=== PATIENT | female | born 1955 ===

== ENCOUNTER 2018-10-20 18:29 | Inpatient (IN) | payer OTHER ==
[2018-10-20 19:02] VITALS: BMI 27.3
--- NOTE | 2018-10-20 19:05 | ED PDOC ---
Arrival/HPI - General Historian: Spouse () - History of Present Illness Narrative History of Present Illness (Text): 10/20/18 18:56 63F with a 2year history of memory loss presents to the Emergency department today after sustaining a fall at 2pm today. she was recently given new prescriptions from her PMD yesterday but was unable to fill them. Denies head trauma. Pt cannot provide an accurate or precise history of the recent events, pt's at bedside giving history. Pt only responds intermittently. ROS: Pos+ fall, memory loss, altered mental status, Neg- chest pain, shortness of breat, fevers, chills, PMD: Dr Vora Home Rx: Metformin 500 qd Lipitor 20 QD Losartan 25 QD clorcon 20meq aricept 10mg BID tempazepam 15 HS Vit D3 22909 q wk Zoloft 50mg QD NIH stroke scale 14 <Ezra Grubbs - Last Filed: 10/20/18 19:14> - Critical Care Critical Care Minutes: 75 minutes - History of Present Illness Time/Duration: 4-6 hours Symptom Onset: Sudden Symptom Course: Worsening Activities at Onset: Rest Context: Home <Seth Fofana - Last Filed: 10/23/18 14:11> - General Chief Complaint: Trauma Time Seen by Provider: 10/20/18 18:44 Past Medical History - Provider Review Nursing Documentation Reviewed: Yes - Travel History Have you recently traveled outside [place] w/in the past 3 mons?: No <Seth Fofana - Last Filed: 10/23/18 14:11> Family/Social History - Physician Review Nursing Documentation Reviewed: Yes Family/Social History: Unknown Family HX <Seth Fofana - Last Filed: 10/23/18 14:11> Allergies/Home Meds <Ezra Grubbs - Last Filed: 10/20/18 19:14> <Seth Fofana - Last Filed: 10/23/18 14:11> Allergies/Adverse Reactions: Allergies No Known Allergies Allergy (Verified 10/20/18 18:58) Home Medications: Home Meds Medication Instructions Recorded Confirmed RX: No Known Home Med 10/20/18 10/20/18 Review of Systems - Review of Systems Systems not reviewed;Unavailable: Altered Mental Status <Seth Fofana Last Filed: 10/23/18 14:11> Physical Exam Vital Signs Reviewed: Yes Temperature: Afebrile Blood Pressure: Normal Pulse: Regular Respiratory Rate: Normal Appearance: Positive for: Non-Toxic Mental Status: Positive for: Confused - Systems Exam Head: Present: Atraumatic, Normocephalic Pupils: Present: PERRL Extroacular Muscles: Present: EOMI Conjunctiva: Present: Normal Mouth: Present: Moist Mucous Membranes Neck: Present: Normal Range of Motion Respiratory/Chest: Present: Clear to Auscultation, Good Air Exchange Cardiovascular: Present: Regular Rate and Rhythm, Normal S1, S2 Abdomen: Present: Normal Bowel Sounds Upper Extremity: Present: Capillary Refill < 2s Lower Extremity: Present: Capillary Refill < 2 s Neurological: Present: Other (No movement of LUE & LLE. Slight left sided facial droop noted. Incomprehensible sounds verbalized from patient) Skin: Present: Warm, Dry, Normal Color Psychiatric: Present: Alert <Seth Fofana - Last Filed: 10/23/18 14:11> Medical Decision Making ED Course and Treatment: 10/20/18 19:26 Impression 63y/o F w/ left sided weakness and slight speech impediment last found at baseline by her at 2PM today NIHSS: 14 Differential Diagnoses Includes But Is Not Limited To: --CVA/TIA --Hemorrhagic Stroke Plan --Labs --CTH --CT H/N angio --CXR --Neurology Consult --ICU Consult --EKG Progress Notes 10/20/18 19:18 CODE STROKE called. Patient noted to noted to be AOx 1. 10/20/18 19:34 CTH reviewed with large intraparenchymal bleeding noted within parietal lobe. Dr. Honeycutt(neurology) called. 10/20/18 19: Spoke to Dr. Honeycutt who states patient will need CTA/MRI. He states since patient is ineligible for tPA due to the intraparynchymal bleeding. He requests for head of bed to be elevated to 40 and blood pressure of 130-140s with Q1H neurology checks and Q15min pupil checks to account for any evidence of impending herniation. 10/20/18 19:48 Discussed case with radiologist who states patient has intraparynchmal parietal bleed, vasogenic edema and subrachnoid hemorrhage. He requests 3% hypertonic saline and will discuss case with the interventional radiologist. 10/20/18 19:57 After review of imaging, Dr. Honeycutt states patient does not need hypertonic saline at this time. He does not think the patient's symptoms are due to a ruptured jones aneurysm, but rather a mass. Since there is no midline shift noted on CT, he does not feel patient needs to have the hypertonic saline at this time. 10/20/18 20:[address] Bradshaw(biological chemist) who does not feel that patient needs to be preemptively intubated and accepts the patient onto the unit. He requests patient to be placed on 100% non-rebreather oxygen. Request for swallow screen relayed to nurse. Spoke to Dr. Pisano(neurosurgery) who states patient is not amenable to surgical intervention at this time. Call placed to Dr. Mccracken). 10/20/18 20:[address] Koehler who states patient is not familiar to him and desires to relegate care to the hospitalist. Dr. Bradshaw made aware. 10/23/18 14:11 - Lab Interpretations Lab Results: 10/20/18 19:18 Lab Results 10/20/18 19:18: Sodium 135, Potassium 3.4 L, Chloride 96 L, Carbon Dioxide 27, Anion Gap 14, BUN 10, Creatinine 0.7, Est GFR ( Amer) > 60, Est GFR (Non- Af Amer) > 60, Random Glucose 162 H, Calcium 9.2, Total Bilirubin 0.6, AST 45 H, ALT 38, Alkaline Phosphatase 111, Troponin I Pending, NT-Pro-B Natriuret Pep Pending, Total Protein 8.9 H, Albumin 4.7, Globulin 4.2, Albumin/Globulin Ratio 1.1 10/20/18 19:18: PT 11.3, INR 0.99, APTT 28.8 - RAD Interpretation Narrative RAD Interpretations (Text): 10/20/18 19:[address] reviewed by radiologist, shows: IMPRESSION: Large right parietal intraparenchymal hemorrhage. There is large surrounding area of vasogenic edema with local mass effect. Adjacent subarachnoid hemorrhage. Radiology Orders: 10/20/18 19:11 CHEST PORTABLE [RAD] Stat 10/20/18 19:15 HEAD W/O (CODE STROKE) [CT] Stat Galley Hand: Radiologist - EKG Interpretation EKG Interpretation (Text): 10/21/18 01:16 EKG: Ordered, reviewed, and independently interpreted the EKG. Rate : 62 BPM Rhythm : NSR Interpretation : No ST-segment elevations, no T-wave inversions. Interpreted by ED Physician: Yes Type: 12 lead EKG - Medication Orders Current Medication Orders: Sodium Chloride (Sodium Chloride 0.9%) 1,000 mls @ 999 mls/hr IV .Q1H1M STA Stop: 10/20/18 20:10 <Seth Fofana - Last Filed: 10/23/18 14:11> NIHSS Stroke Scale 3 - Date/Time Evaluation Performed Date Performed: 10/20/18 Time Performed: 19:18 When Was NIHSS Performed: Baseline - How Severe is the Stroke Level of Consciousness: 0=Alert LOC to Questions: 1=One correct LOC to commands: 2=Neither correct Best Gaze: 0=Normal Visual: 0=No visual loss Facial: 1=Minor asymmetry Motor Arm - Left: 4=No movement Motor Arm - Right: 0=No drift Motor Leg - Left: 4=No movement Motor Leg - Right: 0=No drift Limb Ataxia: 0=Absent Sensory: 0=Normal Best Language: 1=Mild to moderate aphasia Dysarthia: 1=Mild to moderate slurring Extinction & Inattention (Neglect): 0=Normal, no object Score: 14 <Seth Fofana - Last Filed: 10/23/18 14:11> rTPA Inclusion/Exclusion - Refusal of Treatment Patient Refused Treatment: No - Inclusion Criteria for Altepase Patient is 18 years or Older: Yes The Clinical Diagnosis of Ischemic Stroke That is Causing a Potentially Disabling Neurological Deficit: Yes Time of Onset is Well Established to be Less Than 270 Minute Before Treatment Would Begin: No Risk/Benefit Discussed With Patient/Family Member Present: Yes - Exclusion Criteria for Altepase Uncontrolled Hypertension at Time of Treatment (Systolic BP above 185 or Diastolic BP above 110 mmHg): No Active Internal Bleeding: No Known Bleeding Diathesis Including but Not Limited to: Platelets Below 100,000/mm,PTT Above 40 sec After Heparin Use, Current Use of Oral Anitcoagulant With INR Greater Than 1.7 or PT Greater Than 15 secs: No Evidence of an Intracranial Hemorrhage: Yes Suspicion of Subarachnoid Hemorrhage on Pretreatment Evaluation Even if CT Head Negative For Hemorrhage: Yes <Seth Fofana - Last Filed: 10/23/18 14:11> Disposition/Present on Arrival <Ezra Grubbs - Last Filed: 10/20/18 19:14> - Present on Arrival Any Indicators Present on Arrival: No History of DVT/PE: No History of Uncontrolled Diabetes: No Urinary Catheter: No History of Decub. Ulcer: No - Disposition Have Diagnosis and Disposition been Completed?: Yes Disposition Time: 20:36 Patient Plan: ICU <Seth Fofana - Last Filed: 10/23/18 14:11> - Disposition Diagnosis: Hemorrhagic stroke Disposition: HOSPITALIZED Patient Problems: Current Active Problems Problem Status Onset Hemorrhagic stroke Acute Condition: CRITICAL
[2018-10-20] MEDS ORDERED: Sodium Chloride 0.9% 1,000 ML IV STA (19:10)
[2018-10-20 19:36] LABS: ALB/GLOB RATIO 1.1 (1.1-1.8); ALBUMIN 4.7 g/dL (3.0-4.8); ALT/SGPT 38 U/L (7-56); AST/SGOT 45 U/L (14-36); BLOOD UREA NITROGEN 10 mg/dL (7-21); CALCIUM 9.2 mg/dL (8.4-10.5); GFR NON-AFRICAN AMERICAN > 60
[2018-10-20 19:49] LABS: INR 0.99; PARTIAL THROMBOPLASTIN TIME 28.8 Seconds (25.1-36.5); PROTHROMBIN TIME 11.3 SECONDS (9.4-12.5)
[2018-10-20] MEDS ORDERED: levETIRAcetam 1000mg/100ml NS 100 ML IV ONE (19:52)
[2018-10-20 19:53] LABS: BASO # 0.02 K/mm3 (0.0-2.0); BASO % 0.1 % (0.0-3.0); GRAN # 12.19 (1.4-6.5); GRAN % 85.6 % (50.0-68.0); HEMOGLOBIN 13.8 g/dL (12.0-16.0); LYMPH # 1.2 (1.2-3.4); LYMPH % 8.1 % (22.0-35.0); MEAN CELL VOLUME 86.2 fl (80.0-105.0); MEAN CORPUSCULAR HEMOGLOBIN 29.4 pg (25.0-35.0); MEAN CORPUSCULAR HGB CONC 34.1 g/dl (31.0-37.0); MEAN PLATELET VOLUME 9.1 fl (7.0-11.0); MONO # 0.9 (0.1-0.6); MONO % 6.2 % (1.0-6.0); RBC 4.7 10^6/uL (3.5-6.1); RED CELL DISTRIBUTION WIDTH 12.6 % (11.5-14.5); WHITE BLOOD COUNT 14.3 10^3/uL (4.5-11.0)
[2018-10-20 19:56] LABS: FREE T4 1.34 ng/dL (0.78-2.19)
[2018-10-20] MEDS ORDERED: Iohexol 350 MG/100 ML VIAL ONE (20:03)
[2018-10-20 20:16] LABS: B-TYPE NATRIURETIC PEPTIDE 151 pg/mL (0-450); TROPONIN I 0.21 ng/mL
[2018-10-20] MEDS ORDERED: Potassium Phosphate 15 MMOLE in Sodium Chloride 0.9% 250 ML IVPB ONE (20:24)
[2018-10-20] MEDS ORDERED: Sodium Chloride 0.9% 1,000 ML IV SCH (20:30)
--- NOTE | 2018-10-20 22:26 | CP.PCM.HP ---
<Chidi Cuellar - Last Filed: 10/21/18 05:28> History of Present Illness - History of Present Illness History of Present Illness: Chidi Cuellar DO PGY1. H&P Hospitalist Service, Dr Augustine Aly: left sided weakness s/p mechanical fall 63 y/o female with PMH of HTN, DM, HLD, memory loss presents to ED with left sided weakness and slight speech impairment s/p mechanical fall this afternoon. History is obtain by her at bedside as the patient is altered. Patient was last seen in am today by the before he went to work. She was in her normal state of health, ambulating and speaking in full sentences. received a call from relatives who founf the fell on the ground. He came home and found his unresponsive, no tongue biting or froth coming out of mouth. Patient called EMS. As per , patient is compliant with her he rmeds. Was seen by Dr Oconnell for the first time yesterday. He ordered imaging studies and prescribed meds that was not filled out yet. ROS is limited because of AMS PMH: HTN, DM, HLD, memory loss PSH: cataract surgery SH: dened alcohol, smoking, drugs All:NKDA Meds: Metformin, Lipitor, Losartan, clorcon, aricept, tempazepam, Vit D3, Zoloft PMD: Dr Oconnell Present on Admission - Present on Admission Any Indicators Present on Admission: No Past Patient History - Past Social History Smoking Status: Never Smoked - CARDIAC Hx Cardiac Disorders: No - PULMONARY Hx Respiratory Disorders: No - NEUROLOGICAL Hx Dementia: Yes - HEENT Hx HEENT Problems: No - RENAL Hx Chronic Kidney Disease: No - ENDOCRINE/METABOLIC Hx Diabetes Mellitus Type 2: No - HEMATOLOGICAL/ONCOLOGICAL Hx Blood Disorders: No - INTEGUMENTARY Hx Dermatological Problems: No - MUSCULOSKELETAL/RHEUMATOLOGICAL Hx Musculoskeletal Disorders: No - GASTROINTESTINAL Hx Gastrointestinal Disorders: No - GENITOURINARY/GYNECOLOGICAL Hx Genitourinary Disorders: No - PSYCHIATRIC Hx Psychophysiologic Disorder: No Hx Substance Use: No - SURGICAL HISTORY Hx Surgeries: No Meds Allergies/Adverse Reactions: Allergies Allergy/AdvReac Type Severity Reaction Status Date / Time No Known Allergies Allergy Verified 10/20/18 18:58 Physical Exam - Constitutional Appears: Non-toxic, In Acute Distress, Confused Additional comments: altered, lethargic - Head Exam Head Exam: ATRAUMATIC, NORMAL INSPECTION, NORMOCEPHALIC - Eye Exam Eye Exam: EOMI, Normal appearance, PERRL Pupil Exam: NORMAL ACCOMODATION, PERRL - ENT Exam ENT Exam: Mucous Membranes Dry - Neck Exam Neck exam: Positive for: Normal Inspection - Respiratory Exam Respiratory Exam: Clear to Auscultation Bilateral, NORMAL BREATHING PATTERN - Cardiovascular Exam Cardiovascular Exam: REGULAR RHYTHM, +S1, +S2. absent: Gallop, RRR - GI/Abdominal Exam GI & Abdominal Exam: Normal Bowel Sounds, Soft. absent: Tenderness - Extremities Exam Extremities exam: Positive for: normal capillary refill, pedal pulses present. Negative for: calf tenderness - Back Exam Back exam: NORMAL INSPECTION - Expanded Neurological Exam Expanded Patient oriented to: person Speech: Garbled Speech Cranial nerves: EOM's Intact: Normal, Facial Palsey w/o Forehead Movement: Normal, Facial Sensation: Normal Upper motor neuron: Babinski Sign: Normal, Sensory Extinction: Abnormal Left Sensory exam: Lower Extremity Light Touch: Abnormal Left, Upper Extremity Light Touch: Abnormal Left Neuro motor strength exam: Left Upper Extremity: 2/1, Right Upper Extremity: 4, Left Lower Extremity: 2/1 (flexed elbow, wrist), Right Lower Extremity: 4 Coma Scale Eye Opening: SPONTANEOUS Coma Scale Motor Response: OBEYS COMMANDS, Abnormal Flexion Coma Scale Verbal: Confused Coma Scale Total: 17 - Psychiatric Exam Psychiatric exam: Flat Affect - Skin Skin Exam: Dry, Intact Results - Vital Signs Recent Vital Signs: Last Vital Signs Temp 97.4 F L 10/20/18 18:59 Pulse 54 L 10/20/18 20:50 Resp 14 10/20/18 20:50 BP 136/79 10/20/18 20:50 Pulse Ox 98 10/20/18 20:50 - Labs Result Diagrams: 10/20/18 19:18 10/20/18 19:18 Labs: Laboratory Results - last 24 hr 10/20/18 10/20/18 10/20/18 19:18 19:18 19:18 WBC 14.3 H RBC 4.70 Hgb 13.8 Hct 40.5 MCV 86.2 MCH 29.4 MCHC 34.1 RDW 12.6 Plt Count 320 MPV 9.1 Gran % 85.6 H Lymph % (Auto) 8.1 L Whitman % (Auto) 6.2 H Eos % (Auto) 0.0 L Baso % (Auto) 0.1 Gran # 12.19 H Lymph # (Auto) 1.2 Whitman # (Auto) 0.9 H Eos # (Auto) 0.0 Baso # (Auto) 0.02 ESR 88 H PT 11.3 INR 0.99 APTT 28.8 Sodium 135 Potassium 3.4 L Chloride 96 L Carbon Dioxide 27 Anion Gap 14 BUN 10 Creatinine 0.7 Est GFR ( Amer) > 60 Est GFR (Non-Af Amer) > 60 Random Glucose 162 H Calcium 9.2 Total Bilirubin 0.6 AST 45 H ALT 38 Alkaline Phosphatase 111 Troponin I 0.21 H* NT-Pro-B Natriuret Pep 151 Total Protein 8.9 H Albumin 4.7 Globulin 4.2 Albumin/Globulin Ratio 1.1 Free T4 TSH 3rd Generation Blood Type Blood Type Confirm Antibody Screen BBK History Checked 10/20/18 10/20/18 10/20/18 19:18 20:00 20:45 WBC RBC Hgb Hct MCV MCH MCHC RDW Plt Count MPV Gran % Lymph % (Auto) Whitman % (Auto) Eos % (Auto) Baso % (Auto) Gran # Lymph # (Auto) Whitman # (Auto) Eos # (Auto) Baso # (Auto) ESR PT INR APTT Sodium Potassium Chloride Carbon Dioxide Anion Gap BUN Creatinine Est GFR ( Amer) Est GFR (Non-Af Amer) Random Glucose Calcium Total Bilirubin AST ALT Alkaline Phosphatase Troponin I NT-Pro-B Natriuret Pep Total Protein Albumin Globulin Albumin/Globulin Ratio Free T4 1.34 TSH 3rd Generation 0.78 Blood Type A POSITIVE Blood Type Confirm A POSITIVE Antibody Screen Negative BBK History Checked No verified bt Assessment & Plan - Assessment and Plan (Free Text) Assessment: 63 y/o female with PMH of HTN, DM, HLD, memory loss presents to ED with left sided weakness and slight speech impairment s/p mechanical fall. CT head shows right intraparynchmal parietal bleed, vasogenic edema and subrachnoid hemorrhage. Patient is admitted to ICU for hemorrhagic stroke Plan: Acute hemorrhagic stroke: -AAOx 1, in NAD, suppoting airway, occasionally responds to verbal stimuli -CT head: right intraparynchmal parietal bleed, vasogenic edema and subrachnoid hemorrhage -CTA ordered -MRI ordered -NIH stroke scale 14 -swallow screen failed -fall, seizure, aspiration precaution -head of bed to be elevated to 40 -BP control SBP 130-140s -continue Nicardipine drip -replete lytes. -hypokalemia, continue potassium phosphate -continue IVF NS @100cc/hr -Q1H neurology checks and Q15min pupil checks -PT/OT -neurology consulted Dr. Honeycutt is following -As per neurosurgery : not amenable to surgical intervention at this time -100% non-rebreather oxygen -maintain normothermia, euglycemia, O2 sat >90% HTN: -hold home anti HTN meds -BP contrl SBP 130-140s DM: -accucheck -ISS low -HGB A1C -euglycemic control Prophylaxis: -GI ppx: protonix -DVT ppx: SCD Case reviewed and paln discussed with Dr Augustine Cuellar, DO PGY1 <Larry Bradshaw - Last Filed: 10/22/18 03:14> Results - Vital Signs Recent Vital Signs: Last Vital Signs Temp 98.5 F 10/21/18 20:00 Pulse 49 L 10/21/18 22:30 Resp 18 10/21/18 22:30 BP 135/68 10/21/18 22:00 Pulse Ox 100 10/21/18 22:30 - Labs Result Diagrams: 10/21/18 06:00 10/21/18 06:00 Labs: Laboratory Results - last 24 hr 10/21/18 10/21/18 10/21/18 01:20 06:00 06:00 WBC 9.2 D RBC 4.67 Hgb 13.4 Hct 40.1 MCV 85.9 MCH 28.7 MCHC 33.4 RDW 13.1 Plt Count 303 MPV 8.9 Gran % 76.3 H Lymph % (Auto) 17.9 L Whitman % (Auto) 5.4 Eos % (Auto) 0.2 L Baso % (Auto) 0.2 Gran # 7.05 H Lymph # (Auto) 1.7 Whitman # (Auto) 0.5 Eos # (Auto) 0.0 Baso # (Auto) 0.02 Sodium 139 Potassium 3.5 L Chloride 101 Carbon Dioxide 28 Anion Gap 13 BUN 7 Creatinine 0.7 Est GFR ( Amer) > 60 Est GFR (Non-Af Amer) > 60 POC Glucose (mg/dL) Random Glucose 129 H Calcium 9.0 Phosphorus 4.6 H Magnesium 2.4 H Total Bilirubin 0.7 AST 52 H ALT 37 Alkaline Phosphatase 98 Troponin I 0.16 H* D 0.14 H* Total Protein 8.1 Albumin 4.1 Globulin 3.9 Albumin/Globulin Ratio 1.1 Triglycerides 115 Cholesterol 233 H LDL Cholesterol Direct 145 H HDL Cholesterol 62 H 10/21/18 10/22/18 18:52 00:14 WBC RBC Hgb Hct MCV MCH MCHC RDW Plt Count MPV Gran % Lymph % (Auto) Whitman % (Auto) Eos % (Auto) Baso % (Auto) Gran # Lymph # (Auto) Whitman # (Auto) Eos # (Auto) Baso # (Auto) Sodium Potassium Chloride Carbon Dioxide Anion Gap BUN Creatinine Est GFR ( Amer) Est GFR (Non-Af Amer) POC Glucose (mg/dL) 100 94 Random Glucose Calcium Phosphorus Magnesium Total Bilirubin AST ALT Alkaline Phosphatase Troponin I Total Protein Albumin Globulin Albumin/Globulin Ratio Triglycerides Cholesterol LDL Cholesterol Direct HDL Cholesterol Attending/Attestation - Attestation I have personally seen and examined this patient.: Yes I have fully participated in the care of the patient.: Yes I have reviewed all pertinent clinical information: Yes Notes (Text): 10/22/18 03:10 Agree with resident physician's note. 63 year old woman with PMH of DM ,HTN,HLD,Dementia comes in after fall. Has Speech imapariment. Memory loss x 2 months. AMS. Left Upper extremity weakness. She was talking to , following commands, speech was inditinct. Leukocytosis-14.3 Granulocytosis-85.6% Hypokalemia-3.4 Hyperglycemia-162 mg %. AST-45. CXR-Neg. CT Head-Right parietal hemorrage. NIHSS-14. CCT time spent :30 minutes. Plan:See orders.
[2018-10-21] MEDS: Nicardipine 20 MG/200 ML 20 MG/200 ML BAG IV PRN (00:42)
--- NOTE | 2018-10-21 05:57 | CT ---
Date of service: 10/20/2018 PROCEDURE: CT HEAD WITHOUT CONTRAST. HISTORY: Code Stroke COMPARISON: None available. TECHNIQUE: Axial computed tomography images were obtained through the head/brain without intravenous contrast. Radiation dose: Total exam DLP = 1003.11 mGy-cm. This CT exam was performed using one or more of the following dose reduction techniques: Automated exposure control, adjustment of the mA and/or kV according to patient size, and/or use of iterative reconstruction technique. FINDINGS: HEMORRHAGE: There is right frontal parietal parenchymal hematoma measures 4.5 centimeter in the largest AP diameter and 3.4 centimeter in the transverse diameter surrounding with vasogenic edema. There is also trace amount of subarachnoid hemorrhage and possible trace subdural hemorrhage along the right adjacent interhemispheric falx. BRAIN: There is mild mass effect on the midline without evidence of significant midline shift at the level of the lateral ventricles. Mild atrophy noted. VENTRICLES: Unremarkable. No hydrocephalus. CALVARIUM: Unremarkable. PARANASAL SINUSES: Unremarkable as visualized. No significant inflammatory changes. MASTOID AIR CELLS: Unremarkable as visualized. No inflammatory changes. OTHER FINDINGS: None. IMPRESSION: Acute parenchymal hemorrhage at right frontal parietal lobe. Adjacent trace subarachnoid and subdural hemorrhage. Mild surrounding vasogenic edema. Preliminary report was submitted by [facility] Radiology contains concordant findings.
[2018-10-21 07:08] LABS: BASO # 0.02 K/mm3 (0.0-2.0); BASO % 0.2 % (0.0-3.0); EOS % 0.2 % (1.5-5.0); GRAN # 7.05 (1.4-6.5); GRAN % 76.3 % (50.0-68.0); HEMOGLOBIN 13.4 g/dL (12.0-16.0); LYMPH # 1.7 (1.2-3.4); LYMPH % 17.9 % (22.0-35.0); MEAN CELL VOLUME 85.9 fl (80.0-105.0); MEAN CORPUSCULAR HEMOGLOBIN 28.7 pg (25.0-35.0); MEAN CORPUSCULAR HGB CONC 33.4 g/dl (31.0-37.0); MEAN PLATELET VOLUME 8.9 fl (7.0-11.0); MONO # 0.5 (0.1-0.6); MONO % 5.4 % (1.0-6.0); RBC 4.67 10^6/uL (3.5-6.1); RED CELL DISTRIBUTION WIDTH 13.1 % (11.5-14.5); WHITE BLOOD COUNT 9.2 10^3/uL (4.5-11.0)
[2018-10-21 07:31] LABS: ALB/GLOB RATIO 1.1 (1.1-1.8); ALBUMIN 4.1 g/dL (3.0-4.8); ALT/SGPT 37 U/L (7-56); AST/SGOT 52 U/L (14-36); BLOOD UREA NITROGEN 7 mg/dL (7-21); GFR NON-AFRICAN AMERICAN > 60; HDL CHOLESTEROL 62 mg/dL (29-60)
[2018-10-21 07:37] LABS: LDL CHOLESTEROL 145 mg/dL (0-129)
[2018-10-21 07:44] LABS: TROPONIN I 0.14 ng/mL
--- NOTE | 2018-10-21 08:17 | CP.PCM.PN ---
Subjective - Date & Time of Evaluation Date of Evaluation: 10/21/18 Time of Evaluation: 08:14 - Subjective Subjective: called by ER last night reviewed history and CT Small frontal lobe intraparenchamal hemorrhage consistent with hemorrhagic infarct very close to motor strip no significant mass effect. there is no indication at this time to consider surgical intervention. Suggest f/u ct and neurology management reconsult if any changes occur Objective - Vital Signs/Intake and Output Vital Signs (last 24 hours): Temp Pulse Resp BP Pulse Ox 98.0 F 48 L 14 129/73 100 10/21/18 04:00 10/21/18 07:04 10/21/18 07:04 10/21/18 07:04 10/21/18 07:04 Intake and Output: 10/21/18 10/21/18 06:59 18:59 Intake Total 1510 Output Total 450 Balance 1060 - Medications Medications: Current Medications Nicardipine HCl (Cardene Iv Premix) 20 mg in 200 mls @ 50 mls/hr IV .Q4H PRN; Protocol PRN Reason: TITRATE PER MD ORDER Last Titration: 10/21/18 02:00 Dose: 0 mg/hr, 0 mls/hr Sodium Chloride (Sodium Chloride 0.9%) 1,000 mls @ 100 mls/hr IV .Q10H LUNA Last Admin: 10/20/18 22:30 Dose: 100 mls/hr Pantoprazole Sodium (Protonix Inj) 40 mg IVP DAILY LUNA Last Admin: 10/20/18 23:59 Dose: 40 mg - Labs Labs: 10/21/18 06:00 10/21/18 06:00 PT 11.3 SECONDS (9.4-12.5) 10/20/18 19:18 INR 0.99 10/20/18 19:18 APTT 28.8 Seconds (25.1-36.5) 10/20/18:18
--- NOTE | 2018-10-21 09:06 | RAD ---
Date of service: 10/20/2018 HISTORY: sob COMPARISON: No prior. FINDINGS: LUNGS: No active pulmonary disease. PLEURA: No significant pleural effusion identified, no pneumothorax apparent. CARDIOVASCULAR: No aortic atherosclerotic calcification present. Normal cardiac size. No pulmonary vascular congestion. OSSEOUS STRUCTURES: No significant abnormalities. VISUALIZED UPPER ABDOMEN: Normal. OTHER FINDINGS: None. IMPRESSION: No active disease.
--- NOTE | 2018-10-21 09:08 | CP.CCUPN ---
<JohnRodney - Last Filed: 10/21/18 12:00> CCU Subjective - Physician Review Subjective (Free Text): Rodney Lopez Internal Medicine Resident- Progress Note on Behalf of Critical Care Team Subjective: Patient seen and examined at bedside. No acute overnight events. Patient offers no new complaints at this time. Denies fever, chills, chest pain, SOB, palpitations, abdominal pain, nausea, vomiting, diarrhea, constipation, and urinary symptoms. 12 point ROS negative except as indicated in HPI Physical Examination: - Constitutional Appears: No acute distress - Head Exam Head Exam: ATRAUMATIC, NORMAL INSPECTION, NORMOCEPHALIC - Eye Exam Eye Exam: EOMI, Normal appearance, PERRL - ENT Exam ENT Exam: Mucous Membranes Moist - Neck Exam Neck exam: Positive for: Normal Inspection - Respiratory Exam Respiratory Exam: Clear to Auscultation Bilateral, NORMAL BREATHING PATTERN - Cardiovascular Exam Cardiovascular Exam: REGULAR RHYTHM, +S1, +S2. absent: Gallop, RRR - GI/Abdominal Exam GI & Abdominal Exam: Normal Bowel Sounds, Soft. absent: Tenderness - Extremities Exam Extremities exam: Positive for: normal capillary refill, pedal pulses present. Negative for: calf tenderness - Back Exam Back exam: NORMAL INSPECTION - Neurological Exam Neurological exam: AAO x 2, CN II- VII intact bilaterally, muscle strength 5/5 right upper and right lower extremities, 1/5 muscle strength left upper and left lower extremities, sensation intact to touch throughout, NIHSS 11 - Psychiatric Exam Psychiatric exam: Flat Affect - Skin Skin Exam: Dry, Intact Assessment and Plan: Patient is a 63 year old female with a PMHx of HTN, DM, HLD, memory loss who was admitted for evaluation and treatment of left sided weakness and slight speech impairment s/p mechanical fall. CT head without contrast revealed a right sided intraparynchmal parietal bleed, vasogenic edema and subrachnoid hemor rhage. Patient as admitted under ICU care for management of aformentioned imaging findings. Neuro: Acute hemorrhagic stroke - AAOx 2, in NAD - GCS 15 [id number] - NIHSS 11 - 10/20/2018 CT head without contrast: right intraparynchmal parietal bleed, vasogenic edema and subrachnoid hemorrhage - 10/20/2018 CTA head and neck ordered and pending - 10/21/2018 CT head without contrast ordered and pending for monitoring of ICH - fall, seizure, aspiration precaution - head of bed to be elevated to 40 - continue Nicardipine drip for tight BP control, goal SBP 130-140s - Stopped 3% NS @ 30cc/hr as per neuro team, goal sodium 140 mmol/L, continue IVF NS @100cc/hr - started on keppra 750mg IV q12 - PT/OT consulted- appreciate recommendations - speech/swallow evaluation - neurology consulted Dr. Honeycutt- appreciate recommendations - neurosurgery consulted Dr. Pisano appreciate recommendations- no indication at this time to consider surgical intervention Cardiovascular Hx of HTN: - hold home anti HTN meds - BP control SBP 130-140mmHgs Elevated Troponins - neurogenic troponin spill- downtrending- no AC - cardiology consulted- appreciate recommendations - 10/21/18 Echocardiogram ordered and pending Endocrinology DM: - accucheck - ISS low - HGB A1C - maintain euglycemia 140-180mmol/L GI Dysphagia - swallow screen failed - keep patient NPO - continue IV NS @100cc/hr - goal sodium 140mmeq/l GI ppx: - protonix 40mg IV daily Renal Hypokalemia - repleted with KCl 10 mEq/L x 2 - monitor closely, replete as needed Hypermagnesemia - no acute intervention at this time - repeat mag level tomorrow AM Heme DVT ppx - SCD Patient case discussed with and plan approved by attending physician, Dr. Pierre. CCU Objective - Vital Signs / Intake & Output Vital Signs (Last 4 hours): Vital Signs Pulse Resp BP Pulse Ox 10/21/18 08:40 53 L 12 100 10/21/18 08:30 49 L 15 100 10/21/18 08:20 48 L 16 100 10/21/18 08:10 49 L 21 100 10/21/18 08:00 49 L 15 131/60 100 10/21/18 07:50 51 L 21 100 10/21/18 07:40 54 L 25 H 100 10/21/18 07:30 58 L 16 100 10/21/18 07:20 57 L 13 100 10/21/18 07:15 48 L 30 H 137/67 100 10/21/18 07:10 48 L 16 100 10/21/18 07:04 48 L 14 129/73 100 10/21/18 07:00 48 L 14 129/73 100 10/21/18 06:50 50 L 100 10/21/18 06:45 49 L 17 131/77 100 10/21/18 06:40 50 L 17 100 10/21/18 06:30 55 L 14 132/78 100 10/21/18 06:20 47 L 12 100 10/21/18 06:15 48 L 13 137/72 100 10/21/18 06:10 49 L 100 10/21/18 06:00 48 L 14 125/71 100 10/21/18 05:55 52 L 10/21/18 05:50 48 L 15 100 10/21/18 05:45 49 L 15 127/66 100 10/21/18 05:40 49 L 21 100 10/21/18 05:30 54 L 26 H 127/78 100 10/21/18 05:20 48 L 15 100 10/21/18 05:15 48 L 14 126/72 100 10/21/18 05:10 48 L 18 100 10/21/18 05:00 61 19 133/83 100 Intake and Output (Last 8hrs): Intake & Output 10/20/18 10/21/18 10/21/18 22:59 06:59 14:59 Intake Total 1510 Output Total 450 Balance 1060 Weight 140 lb 121 lb 11.2 oz Intake: IV 1510 Right Antecubital 1510 Oral 0 Output: Urine 450 Urine, Voided 450 Stool 0 Emesis 0 - Medications Active Medications: Active Medications Generic Name Dose Route Start Last Admin Trade Name Freq PRN Reason Stop Dose Admin Nicardipine HCl 20 mg in 200 mls @ 50 mls/hr 10/20/18 20:03 10/21/18 02:00 Cardene Iv Premix IV 0 mg/hr .Q4H PRN 0 mls/hr TITRATE PER MD ORDER Titration Protocol 5 MG/HR Sodium Chloride 1,000 mls @ 100 mls/hr 10/20/18 20:30 10/20/18 22:30 Sodium Chloride 0.9% IV 100 mls/hr .Q10H LUNA Administration Pantoprazole Sodium 40 mg 10/20/18 23:45 10/20/18 23:59 Protonix Inj IVP 40 mg DAILY LUNA Administration - Patient Studies Lab Studies: Lab Studies 10/21/18 10/21/18 10/21/18 Range/Units 06:00 06:00 01:20 WBC 9.2 D (4.5-11.0) 10^3/uL RBC 4.67 (3.5-6.1) 10^6/uL Hgb 13.4 (12.0-16.0) g/dL Hct 40.1 (36.0-48.0) % MCV 85.9 (80.0-105.0) fl MCH 28.7 (25.0-35.0) pg MCHC 33.4 (31.0-37.0) g/dl RDW 13.1 (11.5-14.5) % Plt Count 303 (120.0-450.0) 10^3/uL MPV 8.9 (7.0-11.0) fl Gran % 76.3 H (50.0-68.0) % Lymph % (Auto) 17.9 L (22.0-35.0) % [place] % (Auto) 5.4 (1.0-6.0) % Eos % (Auto) 0.2 L (1.5-5.0) % Baso % (Auto) 0.2 (0.0-3.0) % Gran # 7.05 H (1.4-6.5) Lymph # (Auto) 1.7 (1.2-3.4) [place] # (Auto) 0.5 (0.1-0.6) Eos # (Auto) 0.0 (0.0-0.7) Baso # (Auto) 0.02 (0.0-2.0) K/mm3 ESR (0.0-20.0) mm/hr PT (9.4-12.5) SECONDS INR APTT (25.1-36.5) Seconds Sodium 139 (132-148) mmol/L Potassium 3.5 L (3.6-5.0) mmol/L Chloride 101 (98-107) mmol/L Carbon Dioxide 28 (21-33) mmol/L Anion Gap 13 (10-20) BUN 7 (7-21) mg/dL Creatinine 0.7 (0.7-1.2) mg/dl Est GFR ( Amer) > 60 Est GFR (Non-Af Amer) > 60 Random Glucose 129 H (70-110) mg/dL Calcium 9.0 (8.4-10.5) mg/dL Phosphorus 4.6 H (2.5-4.5) mg/dL Magnesium 2.4 H (1.7-2.2) mg/dL Total Bilirubin 0.7 (0.2-1.3) mg/dL AST 52 H (14-36) U/L ALT 37 (7-56) U/L Alkaline Phosphatase 98 (38-126) U/L Troponin I 0.14 H* 0.16 H* D ng/mL NT-Pro-B Natriuret Pep (0-450) pg/mL Total Protein 8.1 (5.8-8.3) g/dL Albumin 4.1 (3.0-4.8) g/dL Globulin 3.9 gm/dL Albumin/Globulin Ratio 1.1 (1.1-1.8) Triglycerides 115 (35-160) mg/dL Cholesterol 233 H (130-200) mg/dL LDL Cholesterol Direct 145 H (0-129) mg/dL HDL Cholesterol 62 H (29-60) mg/dL Free T4 (0.78-2.19) ng/dL TSH 3rd Generation (0.46-4.68) mIU/mL Blood Type Blood Type Confirm Antibody Screen BBK History Checked 10/20/18 10/20/18 10/20/18 Range/Units 20:45 20:00 19:18 WBC (4.5-11.0) 10^3/uL RBC (3.5-6.1) 10^6/uL Hgb (12.0-16.0) g/dL Hct (36.0-48.0) % MCV (80.0-105.0) fl MCH (25.0-35.0) pg MCHC (31.0-37.0) g/dl RDW (11.5-14.5) % Plt Count (120.0-450.0) 10^3/uL MPV (7.0-11.0) fl Gran % (50.0-68.0) % Lymph % (Auto) (22.0-35.0) % [place] % (Auto) (1.0-6.0) % Eos % (Auto) (1.5-5.0) % Baso % (Auto) (0.0-3.0) % Gran # (1.4-6.5) Lymph # (Auto) (1.2-3.4) [place] # (Auto) (0.1-0.6) Eos # (Auto) (0.0-0.7) Baso # (Auto) (0.0-2.0) K/mm3 ESR (0.0-20.0) mm/hr PT (9.4-12.5) SECONDS INR APTT (25.1-36.5) Seconds Sodium (132-148) mmol/L Potassium (3.6-5.0) mmol/L Chloride (98-107) mmol/L Carbon Dioxide (21-33) mmol/L Anion Gap (10-20) BUN (7-21) mg/dL Creatinine (0.7-1.2) mg/dl Est GFR ( Amer) Est GFR (Non-Af Amer) Random Glucose (70-110) mg/dL Calcium (8.4-10.5) mg/dL Phosphorus (2.5-4.5) mg/dL Magnesium (1.7-2.2) mg/dL Total Bilirubin (0.2-1.3) mg/dL AST (14-36) U/L ALT (7-56) U/L Alkaline Phosphatase (38-126) U/L Troponin I ng/mL NT-Pro-B Natriuret Pep (0-450) pg/mL Total Protein (5.8-8.3) g/dL Albumin (3.0-4.8) g/dL Globulin gm/dL Albumin/Globulin Ratio (1.1-1.8) Triglycerides (35-160) mg/dL Cholesterol (130-200) mg/dL LDL Cholesterol Direct (0-129) mg/dL HDL Cholesterol (29-60) mg/dL Free T4 1.34 (0.78-2.19) ng/dL TSH 3rd Generation 0.78 (0.46-4.68) mIU/mL Blood Type A POSITIVE Blood Type Confirm A POSITIVE Antibody Screen Negative BBK History Checked No verified bt 10/20/18 10/20/18 10/20/18 Range/Units 19:18 19:18 19:18 WBC 14.3 H (4.5-11.0) 10^3/uL RBC 4.70 (3.5-6.1) 10^6/uL Hgb 13.8 (12.0-16.0) g/dL Hct 40.5 (36.0-48.0) % MCV 86.2 (80.0-105.0) fl MCH 29.4 (25.0-35.0) pg MCHC 34.1 (31.0-37.0) g/dl RDW 12.6 (11.5-14.5) % Plt Count 320 (120.0-450.0) 10^3/uL MPV 9.1 (7.0-11.0) fl Gran % 85.6 H (50.0-68.0) % Lymph % (Auto) 8.1 L (22.0-35.0) % [place] % (Auto) 6.2 H (1.0-6.0) % Eos % (Auto) 0.0 L (1.5-5.0) % Baso % (Auto) 0.1 (0.0-3.0) % Gran # 12.19 H (1.4-6.5) Lymph # (Auto) 1.2 (1.2-3.4) [place] # (Auto) 0.9 H (0.1-0.6) Eos # (Auto) 0.0 (0.0-0.7) Baso # (Auto) 0.02 (0.0-2.0) K/mm3 ESR 88 H (0.0-20.0) mm/hr PT 11.3 (9.4-12.5) SECONDS INR 0.99 APTT 28.8 (25.1-36.5) Seconds Sodium 135 (132-148) mmol/L Potassium 3.4 L (3.6-5.0) mmol/L Chloride 96 L (98-107) mmol/L Carbon Dioxide 27 (21-33) mmol/L Anion Gap 14 (10-20) BUN 10 (7-21) mg/dL Creatinine 0.7 (0.7-1.2) mg/dl Est GFR ( Amer) > 60 Est GFR (Non-Af Amer) > 60 Random Glucose 162 H (70-110) mg/dL Calcium 9.2 (8.4-10.5) mg/dL Phosphorus (2.5-4.5) mg/dL Magnesium (1.7-2.2) mg/dL Total Bilirubin 0.6 (0.2-1.3) mg/dL AST 45 H (14-36) U/L ALT 38 (7-56) U/L Alkaline Phosphatase 111 (38-126) U/L Troponin I 0.21 H* ng/mL NT-Pro-B Natriuret Pep 151 (0-450) pg/mL Total Protein 8.9 H (5.8-8.3) g/dL Albumin 4.7 (3.0-4.8) g/dL Globulin 4.2 gm/dL Albumin/Globulin Ratio 1.1 (1.1-1.8) Triglycerides (35-160) mg/dL Cholesterol (130-200) mg/dL LDL Cholesterol Direct (0-129) mg/dL HDL Cholesterol (29-60) mg/dL Free T4 (0.78-2.19) ng/dL TSH 3rd Generation (0.46-4.68) mIU/mL Blood Type Blood Type Confirm Antibody Screen BBK History Checked Laboratory Results - last 24 hr 10/20/18 10/20/18 10/20/18 19:18 19:18 19:18 WBC 14.3 H RBC 4.70 Hgb 13.8 Hct 40.5 MCV 86.2 MCH 29.4 MCHC 34.1 RDW 12.6 Plt Count 320 MPV 9.1 Gran % 85.6 H Lymph % (Auto) 8.1 L [place] % (Auto) 6.2 H Eos % (Auto) 0.0 L Baso % (Auto) 0.1 Gran # 12.19 H Lymph # (Auto) 1.2 [place] # (Auto) 0.9 H Eos # (Auto) 0.0 Baso # (Auto) 0.02 ESR 88 H PT 11.3 INR 0.99 APTT 28.8 Sodium 135 Potassium 3.4 L Chloride 96 L Carbon Dioxide 27 Anion Gap 14 BUN 10 Creatinine 0.7 Est GFR ( Amer) > 60 Est GFR (Non-Af Amer) > 60 Random Glucose 162 H Calcium 9.2 Phosphorus Magnesium Total Bilirubin 0.6 AST 45 H ALT 38 Alkaline Phosphatase 111 Troponin I 0.21 H* NT-Pro-B Natriuret Pep 151 Total Protein 8.9 H Albumin 4.7 Globulin 4.2 Albumin/Globulin Ratio 1.1 Triglycerides Cholesterol LDL Cholesterol Direct HDL Cholesterol Free T4 TSH 3rd Generation Blood Type Blood Type Confirm Antibody Screen BBK History Checked 10/20/18 10/20/18 10/20/18 19:18 20:00 20:45 WBC RBC Hgb Hct MCV MCH MCHC RDW Plt Count MPV Gran % Lymph % (Auto) [place] % (Auto) Eos % (Auto) Baso % (Auto) Gran # Lymph # (Auto) [place] # (Auto) Eos # (Auto) Baso # (Auto) ESR PT INR APTT Sodium Potassium Chloride Carbon Dioxide Anion Gap BUN Creatinine Est GFR ( Amer) Est GFR (Non-Af Amer) Random Glucose Calcium Phosphorus Magnesium Total Bilirubin AST ALT Alkaline Phosphatase Troponin I NT-Pro-B Natriuret Pep Total Protein Albumin Globulin Albumin/Globulin Ratio Triglycerides Cholesterol LDL Cholesterol Direct HDL Cholesterol Free T4 1.34 TSH 3rd Generation 0.78 Blood Type A POSITIVE Blood Type Confirm A POSITIVE Antibody Screen Negative BBK History Checked No verified bt 10/21/18 10/21/18 10/21/18 01:20 06:00 06:00 WBC 9.2 D RBC 4.67 Hgb 13.4 Hct 40.1 MCV 85.9 MCH 28.7 MCHC 33.4 RDW 13.1 Plt Count 303 MPV 8.9 Gran % 76.3 H Lymph % (Auto) 17.9 L [place] % (Auto) 5.4 Eos % (Auto) 0.2 L Baso % (Auto) 0.2 Gran # 7.05 H Lymph # (Auto) 1.7 [place] # (Auto) 0.5 Eos # (Auto) 0.0 Baso # (Auto) 0.02 ESR PT INR APTT Sodium 139 Potassium 3.5 L Chloride 101 Carbon Dioxide 28 Anion Gap 13 BUN 7 Creatinine 0.7 Est GFR ( Amer) > 60 Est GFR (Non-Af Amer) > 60 Random Glucose 129 H Calcium 9.0 Phosphorus 4.6 H Magnesium 2.4 H Total Bilirubin 0.7 AST 52 H ALT 37 Alkaline Phosphatase 98 Troponin I 0.16 H* D 0.14 H* NT-Pro-B Natriuret Pep Total Protein 8.1 Albumin 4.1 Globulin 3.9 Albumin/Globulin Ratio 1.1 Triglycerides 115 Cholesterol 233 H LDL Cholesterol Direct 145 H HDL Cholesterol 62 H Free T4 TSH 3rd Generation Blood Type Blood Type Confirm Antibody Screen BBK History Checked Radiology Impressions: Radiology Impressions Head CT 10/20/18 19:15 IMPRESSION: Acute parenchymal hemorrhage at right frontal parietal lobe. Adjacent trace subarachnoid and subdural hemorrhage. Mild surrounding vasogenic edema. Preliminary report was submitted by [facility] Radiology contains concordant findings. EKG/Cardiology Studies: Cardiology / EKG Studies 10/21/18 05:00 EKG [ELECTROCARDIOGRAM] Routine Comment: Reason For Exam: elevated trop Fingerstick Blood Sugar Results: 129 Critical Care Progress Note - Nutrition Nutrition: Nutrition Category Date Time Status NPO Diet [DIET] Diets 10/20/18 Breakfast Ordered <Reg Pierre - Last Filed: 10/21/18 14:20> CCU Objective - Vital Signs / Intake & Output Vital Signs (Last 4 hours): Vital Signs Pulse Resp BP Pulse Ox 10/21/18 11:00 48 L 32 H 166/87 H 100 10/21/18 10:50 50 L 41 H 100 10/21/18 10:40 51 L 15 100 10/21/18 10:30 46 L 28 H 100 10/21/18 10:20 48 L 5 L 100 Intake and Output (Last 8hrs): Intake & Output 10/20/18 10/21/18 10/21/18 22:59 06:59 14:59 Intake Total 1510 100 Output Total 450 Balance 1060 100 Weight 140 lb 121 lb 11.2 oz Intake: IV 1510 100 Right Antecubital 1510 Oral 0 Output: Urine 450 Urine, Voided 450 Stool 0 Emesis 0 - Medications Active Medications: Active Medications Generic Name Dose Route Start Last Admin Trade Name Freq PRN Reason Stop Dose Admin Nicardipine HCl 20 mg in 200 mls @ 50 mls/hr 10/20/18 20:03 10/21/18 13:30 Cardene Iv Premix IV 5 mg/hr .Q4H PRN 50 mls/hr TITRATE PER MD ORDER Titration Protocol 5 MG/HR Levetiracetam 500 mg in 100 mls @ 400 mls/hr 10/21/18 10:00 10/21/18 10:04 Keppra 500mg Ivpb IVPB 400 mls/hr Q12 LUNA Administration Pantoprazole Sodium 40 mg 10/20/18 23:45 12/21/18 10:19 Protonix Inj IVP 40 mg DAILY LUNA Administration - Patient Studies Lab Studies: Lab Studies 10/21/18 10/21/18 10/21/18 Range/Units 06:00 06:00 01:20 WBC 9.2 D (4.5-11.0) 10^3/uL RBC 4.67 (3.5-6.1) 10^6/uL Hgb 13.4 (12.0-16.0) g/dL Hct 40.1 (36.0-48.0) % MCV 85.9 (80.0-105.0) fl MCH 28.7 (25.0-35.0) pg MCHC 33.4 (31.0-37.0) g/dl RDW 13.1 (11.5-14.5) % Plt Count 303 (120.0-450.0) 10^3/uL MPV 8.9 (7.0-11.0) fl Gran % 76.3 H (50.0-68.0) % Lymph % (Auto) 17.9 L (22.0-35.0) % [place] % (Auto) 5.4 (1.0-6.0) % Eos % (Auto) 0.2 L (1.5-5.0) % Baso % (Auto) 0.2 (0.0-3.0) % Gran # 7.05 H (1.4-6.5) Lymph # (Auto) 1.7 (1.2-3.4) [place] # (Auto) 0.5 (0.1-0.6) Eos # (Auto) 0.0 (0.0-0.7) Baso # (Auto) 0.02 (0.0-2.0) K/mm3 ESR (0.0-20.0) mm/hr PT (9.4-12.5) SECONDS INR APTT (25.1-36.5) Seconds Sodium 139 (132-148) mmol/L Potassium 3.5 L (3.6-5.0) mmol/L Chloride 101 (98-107) mmol/L Carbon Dioxide 28 (21-33) mmol/L Anion Gap 13 (10-20) BUN 7 (7-21) mg/dL Creatinine 0.7 (0.7-1.2) mg/dl Est GFR ( Amer) > 60 Est GFR (Non-Af Amer) > 60 Random Glucose 129 H (70-110) mg/dL Calcium 9.0 (8.4-10.5) mg/dL Phosphorus 4.6 H (2.5-4.5) mg/dL Magnesium 2.4 H (1.7-2.2) mg/dL Total Bilirubin 0.7 (0.2-1.3) mg/dL AST 52 H (14-36) U/L ALT 37 (7-56) U/L Alkaline Phosphatase 98 (38-126) U/L Troponin I 0.14 H* 0.16 H* D ng/mL NT-Pro-B Natriuret Pep (0-450) pg/mL Total Protein 8.1 (5.8-8.3) g/dL Albumin 4.1 (3.0-4.8) g/dL Globulin 3.9 gm/dL Albumin/Globulin Ratio 1.1 (1.1-1.8) Triglycerides 115 (35-160) mg/dL Cholesterol 233 H (130-200) mg/dL LDL Cholesterol Direct 145 H (0-129) mg/dL HDL Cholesterol 62 H (29-60) mg/dL Free T4 (0.78-2.19) ng/dL TSH 3rd Generation (0.46-4.68) mIU/mL Blood Type Blood Type Confirm Antibody Screen BBK History Checked 10/20/18 10/20/18 10/20/18 Range/Units 20:45 20:00 19:18 WBC (4.5-11.0) 10^3/uL RBC (3.5-6.1) 10^6/uL Hgb (12.0-16.0) g/dL Hct (36.0-48.0) % MCV (80.0-105.0) fl MCH (25.0-35.0) pg MCHC (31.0-37.0) g/dl RDW (11.5-14.5) % Plt Count (120.0-450.0) 10^3/uL MPV (7.0-11.0) fl Gran % (50.0-68.0) % Lymph % (Auto) (22.0-35.0) % [place] % (Auto) (1.0-6.0) % Eos % (Auto) (1.5-5.0) % Baso % (Auto) (0.0-3.0) % Gran # (1.4-6.5) Lymph # (Auto) (1.2-3.4) [place] # (Auto) (0.1-0.6) Eos # (Auto) (0.0-0.7) Baso # (Auto) (0.0-2.0) K/mm3 ESR (0.0-20.0) mm/hr PT (9.4-12.5) SECONDS INR APTT (25.1-36.5) Seconds Sodium (132-148) mmol/L Potassium (3.6-5.0) mmol/L Chloride (98-107) mmol/L Carbon Dioxide (21-33) mmol/L Anion Gap (10-20) BUN (7-21) mg/dL Creatinine (0.7-1.2) mg/dl Est GFR ( Amer) Est GFR (Non-Af Amer) Random Glucose (70-110) mg/dL Calcium (8.4-10.5) mg/dL Phosphorus (2.5-4.5) mg/dL Magnesium (1.7-2.2) mg/dL Total Bilirubin (0.2-1.3) mg/dL AST (14-36) U/L ALT (7-56) U/L Alkaline Phosphatase (38-126) U/L Troponin I ng/mL NT-Pro-B Natriuret Pep (0-450) pg/mL Total Protein (5.8-8.3) g/dL Albumin (3.0-4.8) g/dL Globulin gm/dL Albumin/Globulin Ratio (1.1-1.8) Triglycerides (35-160) mg/dL Cholesterol (130-200) mg/dL LDL Cholesterol Direct (0-129) mg/dL HDL Cholesterol (29-60) mg/dL Free T4 1.34 (0.78-2.19) ng/dL TSH 3rd Generation 0.78 (0.46-4.68) mIU/mL Blood Type A POSITIVE Blood Type Confirm A POSITIVE Antibody Screen Negative BBK History Checked No verified bt 12/20/18 12/20/18 12/20/18 Range/Units 19:18 19:18 19:18 WBC 14.3 H (4.5-11.0) 10^3/uL RBC 4.70 (3.5-6.1) 10^6/uL Hgb 13.8 (12.0-16.0) g/dL Hct 40.5 (36.0-48.0) % MCV 86.2 (80.0-105.0) fl MCH 29.4 (25.0-35.0) pg MCHC 34.1 (31.0-37.0) g/dl RDW 12.6 (11.5-14.5) % Plt Count 320 (120.0-450.0) 10^3/uL MPV 9.1 (7.0-11.0) fl Gran % 85.6 H (50.0-68.0) % Lymph % (Auto) 8.1 L (22.0-35.0) % [place] % (Auto) 6.2 H (1.0-6.0) % Eos % (Auto) 0.0 L (1.5-5.0) % Baso % (Auto) 0.1 (0.0-3.0) % Gran # 12.19 H (1.4-6.5) Lymph # (Auto) 1.2 (1.2-3.4) [place] # (Auto) 0.9 H (0.1-0.6) Eos # (Auto) 0.0 (0.0-0.7) Baso # (Auto) 0.02 (0.0-2.0) K/mm3 ESR 88 H (0.0-20.0) mm/hr PT 11.3 (9.4-12.5) SECONDS INR 0.99 APTT 28.8 (25.1-36.5) Seconds Sodium 135 (132-148) mmol/L Potassium 3.4 L (3.6-5.0) mmol/L Chloride 96 L (98-107) mmol/L Carbon Dioxide 27 (21-33) mmol/L Anion Gap 14 (10-20) BUN 10 (7-21) mg/dL Creatinine 0.7 (0.7-1.2) mg/dl Est GFR ( Amer) > 60 Est GFR (Non-Af Amer) > 60 Random Glucose 162 H (70-110) mg/dL Calcium 9.2 (8.4-10.5) mg/dL Phosphorus (2.5-4.5) mg/dL Magnesium (1.7-2.2) mg/dL Total Bilirubin 0.6 (0.2-1.3) mg/dL AST 45 H (14-36) U/L ALT 38 (7-56) U/L Alkaline Phosphatase 111 (38-126) U/L Troponin I 0.21 H* ng/mL NT-Pro-B Natriuret Pep 151 (0-450) pg/mL Total Protein 8.9 H (5.8-8.3) g/dL Albumin 4.7 (3.0-4.8) g/dL Globulin 4.2 gm/dL Albumin/Globulin Ratio 1.1 (1.1-1.8) Triglycerides (35-160) mg/dL Cholesterol (130-200) mg/dL LDL Cholesterol Direct (0-129) mg/dL HDL Cholesterol (29-60) mg/dL Free T4 (0.78-2.19) ng/dL TSH 3rd Generation (0.46-4.68) mIU/mL Blood Type Blood Type Confirm Antibody Screen BBK History Checked Laboratory Results - last 24 hr 10/20/18 10/20/18 10/20/18 19:18 19:18 19:18 WBC 14.3 H RBC 4.70 Hgb 13.8 Hct 40.5 MCV 86.2 MCH 29.4 MCHC 34.1 RDW 12.6 Plt Count 320 MPV 9.1 Gran % 85.6 H Lymph % (Auto) 8.1 L [place] % (Auto) 6.2 H Eos % (Auto) 0.0 L Baso % (Auto) 0.1 Gran # 12.19 H Lymph # (Auto) 1.2 [place] # (Auto) 0.9 H Eos # (Auto) 0.0 Baso # (Auto) 0.02 ESR 88 H PT 11.3 INR 0.99 APTT 28.8 Sodium 135 Potassium 3.4 L Chloride 96 L Carbon Dioxide 27 Anion Gap 14 BUN 10 Creatinine 0.7 Est GFR ( Amer) > 60 Est GFR (Non-Af Amer) > 60 Random Glucose 162 H Calcium 9.2 Phosphorus Magnesium Total Bilirubin 0.6 AST 45 H ALT 38 Alkaline Phosphatase 111 Troponin I 0.21 H* NT-Pro-B Natriuret Pep 151 Total Protein 8.9 H Albumin 4.7 Globulin 4.2 Albumin/Globulin Ratio 1.1 Triglycerides Cholesterol LDL Cholesterol Direct HDL Cholesterol Free T4 TSH 3rd Generation Blood Type Blood Type Confirm Antibody Screen BBK History Checked 10/20/18 10/20/18 10/20/18 19:18 20:00 20:45 WBC RBC Hgb Hct MCV MCH MCHC RDW Plt Count MPV Gran % Lymph % (Auto) [place] % (Auto) Eos % (Auto) Baso % (Auto) Gran # Lymph # (Auto) [place] # (Auto) Eos # (Auto) Baso # (Auto) ESR PT INR APTT Sodium Potassium Chloride Carbon Dioxide Anion Gap BUN Creatinine Est GFR ( Amer) Est GFR (Non-Af Amer) Random Glucose Calcium Phosphorus Magnesium Total Bilirubin AST ALT Alkaline Phosphatase Troponin I NT-Pro-B Natriuret Pep Total Protein Albumin Globulin Albumin/Globulin Ratio Triglycerides Cholesterol LDL Cholesterol Direct HDL Cholesterol Free T4 1.34 TSH 3rd Generation 0.78 Blood Type A POSITIVE Blood Type Confirm A POSITIVE Antibody Screen Negative BBK History Checked No verified bt 10/21/18 10/21/18 10/21/18 01:20 06:00 06:00 WBC 9.2 D RBC 4.67 Hgb 13.4 Hct 40.1 MCV 85.9 MCH 28.7 MCHC 33.4 RDW 13.1 Plt Count 303 MPV 8.9 Gran % 76.3 H Lymph % (Auto) 17.9 L [place] % (Auto) 5.4 Eos % (Auto) 0.2 L Baso % (Auto) 0.2 Gran # 7.05 H Lymph # (Auto) 1.7 [place] # (Auto) 0.5 Eos # (Auto) 0.0 Baso # (Auto) 0.02 ESR PT INR APTT Sodium 139 Potassium 3.5 L Chloride 101 Carbon Dioxide 28 Anion Gap 13 BUN 7 Creatinine 0.7 Est GFR ( Amer) > 60 Est GFR (Non-Af Amer) > 60 Random Glucose 129 H Calcium 9.0 Phosphorus 4.6 H Magnesium 2.4 H Total Bilirubin 0.7 AST 52 H ALT 37 Alkaline Phosphatase 98 Troponin I 0.16 H* D 0.14 H* NT-Pro-B Natriuret Pep Total Protein 8.1 Albumin 4.1 Globulin 3.9 Albumin/Globulin Ratio 1.1 Triglycerides 115 Cholesterol 233 H LDL Cholesterol Direct 145 H HDL Cholesterol 62 H Free T4 TSH 3rd Generation Blood Type Blood Type Confirm Antibody Screen BBK History Checked Radiology Impressions: Radiology Impressions Chest X-Ray 10/20/18 19:11 IMPRESSION: No active disease. Head CT 10/20/18 19:15 IMPRESSION: Acute parenchymal hemorrhage at right frontal parietal lobe. Adjacent trace subarachnoid and subdural hemorrhage. Mild surrounding vasogenic edema. Preliminary report was submitted by [facility] Radiology contains concordant findings. CT Angiography 10/20/18 19:56 IMPRESSION: No evidence of aneurysm or occlusion Chest X-Ray 10/21/18 08:05 IMPRESSION: No active disease. Head CT 10/21/18 10:17 IMPRESSION: No significant interval changes noted since the prior study. EKG/Cardiology Studies: Cardiology / EKG Studies 10/21/18 05:00 EKG [ELECTROCARDIOGRAM] Routine Comment: Reason For Exam: elevated trop Critical Care Progress Note - Nutrition Nutrition: Nutrition Category Date Time Status NPO Diet [DIET] Diets 10/20/18 Breakfast Ordered Assessment/Plan - Assessment and Plan (Free Text) Assessment: Patient seen and examined on rounds with resident, agree with note with following additions/exceptions: Patient is a 63yo female with a PMHx of HTN, DM, HLD, memory loss who was admitted for evaluation and treatment of left sided weakness and slight speech impairment s/p mechanical fall, CT head without contrast revealed a right sided intraparynchmal parietal bleed, vasogenic edema and subrachnoid hemorrhage. Currently awake, alert, protecting airway Seen by neurosurgery, no surgical intervention at this time. Repeat CT head done, no interval change ICH SAH HTN HLD DM rule out early onset dementia Recommend: - supp o2 as needed, duonebs PRN - panculture, UCx, BCx, check Procal, UA - NO ID issues at this time - BP control, Cardene, goal SBP <140 - FS control, Fever control - NPO - speech swallow eval - Keppra IV seizure ppx - follow up Neurology, NSG - MRI Brain, rule out mass - GI ppx - DVT ppx, SCDs - Monitor in MICU Critical care time 35 minutes
--- NOTE | 2018-10-21 09:23 | RAD ---
Date of service: 10/21/2018 HISTORY: intubated COMPARISON: 10/20/2018 FINDINGS: LUNGS: No active pulmonary disease. PLEURA: No significant pleural effusion identified, no pneumothorax apparent. CARDIOVASCULAR: No aortic atherosclerotic calcification present. Normal cardiac size. No pulmonary vascular congestion. OSSEOUS STRUCTURES: No significant abnormalities. VISUALIZED UPPER ABDOMEN: Normal. OTHER FINDINGS: None. IMPRESSION: No active disease.
--- NOTE | 2018-10-21 09:37 | CARD ---
APPROVED REPORT Date of service: 10/21/2018 EKG Measurement Heart [id number] FL [id number]-8 [id number] <Conclusion> Sinus bradycardia STTW changes c/w ischemia Q in lll
[2018-10-21] MEDS ORDERED: levETIRAcetam 500 MG in Sodium Chloride 0.9% 100 ML IV STA (09:45)
[2018-10-21] MEDS ORDERED: Sodium Chloride 3% 500 ML IV SCH (09:45)
[2018-10-21] MEDS: levETIRAcetam 500mg IVPB 500 MG/100 ML BAG IVPB SCH ×2 (10:04→21:28)
--- NOTE | 2018-10-21 10:12 | CP.PCM.CON ---
<Moshe Chase - Last Filed: 10/21/18 13:46> History of Present Illness - History of Present Illness History of Present Illness: Neurology consult note for Dr. Tangela Chase PGY2 Chief complaint: Patient found on bedroom floor s/p fall unable to move Due to patient's mental status, history was obtained from . As per when he arrived home from work he found his on the bedroom floor unable to move, confused, with unintelligible speech. Patient's described her state as unusual self as she was acting differently. He tried tur jigna his but she couldn't move. So he called 911 to bring her to the hospital. States this has never happened before. Endorses that night before was completely normal before going to bed however In the morning she woke up at 2 a.m. took a bath and insisted on wanting to go outside but he was able to re- direct her to bed. To note patient fell two weeks ago upon awakening but did not hit her head because caught her. As per , patient has had a few falls lately that tend to happen upon awakening. PMD: Dr. Koehler (new PMD as of yesterday), Dr. Jovel former doctor PMH: Hypertension, dementia (two years ago), DM, Surgical Hx: Cataract b/l surgery Allergies: no Family history: Father-stroke Social History: denies smoking, drinking, illicit drug use. Lives home with her brother and sister in law. Review of Systems - Review of Systems Systems not reviewed;Unavailable: Altered Mental Status Past Patient History - Past Social History Smoking Status: Never Smoked - CARDIAC Hx Cardiac Disorders: No - PULMONARY Hx Respiratory Disorders: No - NEUROLOGICAL Hx Dementia: Yes - HEENT Hx HEENT Problems: No - RENAL Hx Chronic Kidney Disease: No - ENDOCRINE/METABOLIC Hx Diabetes Mellitus Type 2: No - HEMATOLOGICAL/ONCOLOGICAL Hx Blood Disorders: No - INTEGUMENTARY Hx Dermatological Problems: No - MUSCULOSKELETAL/RHEUMATOLOGICAL Hx Musculoskeletal Disorders: No - GASTROINTESTINAL Hx Gastrointestinal Disorders: No - GENITOURINARY/GYNECOLOGICAL Hx Genitourinary Disorders: No - PSYCHIATRIC Hx Psychophysiologic Disorder: No Hx Substance Use: No - SURGICAL HISTORY Hx Surgeries: No Meds Allergies/Adverse Reactions: Allergies Allergy/AdvReac Type Severity Reaction Status Date / Time No Known Allergies Allergy Verified 10/20/18 18:58 - Medications Medications: Current Medications Nicardipine HCl (Cardene Iv Premix) 20 mg in 200 mls @ 50 mls/hr IV .Q4H PRN; Protocol PRN Reason: TITRATE PER MD ORDER Last Titration: 10/21/18 02:00 Dose: 0 mg/hr, 0 mls/hr Sodium Chloride (Hypertonic Saline 3%) 500 mls @ 30 mls/hr IV [id number] LUNA Levetiracetam (Keppra 500mg Ivpb) 500 mg in 100 mls @ 400 mls/hr IVPB Q12 LUNA Pantoprazole Sodium (Protonix Inj) 40 mg IVP DAILY LUNA Last Admin: 10/20/18 23:59 Dose: 40 mg Physical Exam - Head Exam Head Exam: ATRAUMATIC, NORMAL INSPECTION, NORMOCEPHALIC - Eye Exam Eye Exam: Normal appearance, PERRL. absent: EOMI - ENT Exam ENT Exam: Mucous Membranes Moist - Neck Exam Neck exam: Positive for: Normal Inspection - Respiratory Exam Respiratory Exam: Clear to Auscultation Bilateral - Cardiovascular Exam Cardiovascular Exam: REGULAR RHYTHM, +S1, +S2 - GI/Abdominal Exam GI & Abdominal Exam: Normal Bowel Sounds, Soft - Neurological Exam Neurological exam: Alert, CN II-XII Intact, Oriented x3 - Psychiatric Exam Psychiatric exam: Normal Affect, Normal Mood - Skin Skin Exam: Normal Color, Warm Results - Vital Signs Recent Vital Signs: Last Vital Signs Temp 98.0 F 10/21/18 04:00 Pulse 53 L 10/21/18 08:40 Resp 12 10/21/18 08:40 BP 131/60 10/21/18 08:00 Pulse Ox 100 10/21/18 08:40 - Labs Result Diagrams: 10/21/18 06:00 10/21/18 06:00 Labs: Laboratory Results - last 24 hr 10/20/18 10/20/18 10/20/18 19:18 19:18 19:18 WBC 14.3 H RBC 4.70 Hgb 13.8 Hct 40.5 MCV 86.2 MCH 29.4 MCHC 34.1 RDW 12.6 Plt Count 320 MPV 9.1 Gran % 85.6 H Lymph % (Auto) 8.[address] [place] % (Auto) 6.2 H Eos % (Auto) 0.0 L Baso % (Auto) 0.1 Gran # 12.19 H Lymph # (Auto) 1.2 [place] # (Auto) 0.9 H Eos # (Auto) 0.0 Baso # (Auto) 0.02 ESR 88 H PT 11.3 INR 0.99 APTT 28.8 Sodium 135 Potassium 3.4 L Chloride 96 L Carbon Dioxide 27 Anion Gap 14 BUN 10 Creatinine 0.7 Est GFR ( Amer) > 60 Est GFR (Non-Af Amer) > 60 Random Glucose 162 H Calcium 9.2 Phosphorus Magnesium Total Bilirubin 0.6 AST 45 H ALT 38 Alkaline Phosphatase 111 Troponin I 0.21 H* NT-Pro-B Natriuret Pep 151 Total Protein 8.9 H Albumin 4.7 Globulin 4.2 Albumin/Globulin Ratio 1.1 Triglycerides Cholesterol LDL Cholesterol Direct HDL Cholesterol Free T4 TSH 3rd Generation Blood Type Blood Type Confirm Antibody Screen BBK History Checked 10/20/18 10/20/18 10/20/18 19:18 20:00 20:45 WBC RBC Hgb Hct MCV MCH MCHC RDW Plt Count MPV Gran % Lymph % (Auto) [place] % (Auto) Eos % (Auto) Baso % (Auto) Gran # Lymph # (Auto) [place] # (Auto) Eos # (Auto) Baso # (Auto) ESR PT INR APTT Sodium Potassium Chloride Carbon Dioxide Anion Gap BUN Creatinine Est GFR ( Amer) Est GFR (Non-Af Amer) Random Glucose Calcium Phosphorus Magnesium Total Bilirubin AST ALT Alkaline Phosphatase Troponin I NT-Pro-B Natriuret Pep Total Protein Albumin Globulin Albumin/Globulin Ratio Triglycerides Cholesterol LDL Cholesterol Direct HDL Cholesterol Free T4 1.34 TSH 3rd Generation 0.78 Blood Type A POSITIVE Blood Type Confirm A POSITIVE Antibody Screen Negative BBK History Checked No verified bt 10/21/18 10/21/18 10/21/18 01:20 06:00 06:00 WBC 9.2 D RBC 4.67 Hgb 13.4 Hct 40.1 MCV 85.9 MCH 28.7 MCHC 33.4 RDW 13.1 Plt Count 303 MPV 8.9 Gran % 76.3 H Lymph % (Auto) 17.[address] [place] % (Auto) 5.4 Eos % (Auto) 0.2 L Baso % (Auto) 0.2 Gran # 7.05 H Lymph # (Auto) 1.7 [place] # (Auto) 0.5 Eos # (Auto) 0.0 Baso # (Auto) 0.02 ESR PT INR APTT Sodium 139 Potassium 3.5 L Chloride 101 Carbon Dioxide 28 Anion Gap 13 BUN 7 Creatinine 0.7 Est GFR ( Amer) > 60 Est GFR (Non-Af Amer) > 60 Random Glucose 129 H Calcium 9.0 Phosphorus 4.6 H Magnesium 2.4 H Total Bilirubin 0.7 AST 52 H ALT 37 Alkaline Phosphatase 98 Troponin I 0.16 H* D 0.14 H* NT-Pro-B Natriuret Pep Total Protein 8.1 Albumin 4.1 Globulin 3.9 Albumin/Globulin Ratio 1.1 Triglycerides 115 Cholesterol 233 H LDL Cholesterol Direct 145 H HDL Cholesterol 62 H Free T4 TSH 3rd Generation Blood Type Blood Type Confirm Antibody Screen BBK History Checked Assessment & Plan - Assessment and Plan (Free Text) Assessment: 63 F with a history of DM, hypertension, dementia, dyslipidemia presenting s/p fall with found to have hemorrhagic stroke secondary to intraparenchymal hemorrhage due to possible mass with adjacent subdural and subarachnoid hemorrhage. Plan: Hemorrhagic stroke secondary to intraparenchymal hemorrhage at right frontal parietal lobe with adjacent trace subarachnoid and subdural hemorrhage -Maintain SBP 120-140, if over 150 recommend 10 mg labetalol. If above 159 then cardene drip is recommended -Repeat CT head to monitor midline shift -MRI brain with and without contrast to r/o mass -Head above bed 45 degrees -Q1H neurology checks and Q15min pupil checks <Armando Honeycutt - Last Filed: 10/21/18 16:14> Meds - Medications Medications: Current Medications Nicardipine HCl (Cardene Iv Premix) 20 mg in 200 mls @ 50 mls/hr IV .Q4H PRN; Protocol PRN Reason: TITRATE PER MD ORDER Last Titration: 10/21/18 13:30 Dose: 5 mg/hr, 50 mls/hr Levetiracetam (Keppra 500mg Ivpb) 500 mg in 100 mls @ 400 mls/hr IVPB Q12 LUNA Last Admin: 10/21/18 10:04 Dose: 400 mls/hr Sodium Chloride (Sodium Chloride 0.9%) 1,000 mls @ 100 mls/hr IV .Q10H LUNA Pantoprazole Sodium (Protonix Inj) 40 mg IVP DAILY LUNA Last Admin: 10/21/18 10:19 Dose: 40 mg Results - Vital Signs Recent Vital Signs: Last Vital Signs Temp 98.0 F 10/21/18 04:00 Pulse 48 L 10/21/18 11:00 Resp 32 H 10/21/18 11:00 BP 166/87 H 10/21/18 11:00 Pulse Ox 100 10/21/18 11:00 - Labs Result Diagrams: 10/21/18 06:00 10/21/18 06:00 Labs: Laboratory Results - last 24 hr 10/20/18 10/20/18 10/20/18 19:18 19:18 19:18 WBC 14.3 H RBC 4.70 Hgb 13.8 Hct 40.5 MCV 86.2 MCH 29.4 MCHC 34.1 RDW 12.6 Plt Count 320 MPV 9.1 Gran % 85.6 H Lymph % (Auto) 8.[address] [place] % (Auto) 6.2 H Eos % (Auto) 0.0 L Baso % (Auto) 0.1 Gran # 12.19 H Lymph # (Auto) 1.2 [place] # (Auto) 0.9 H Eos # (Auto) 0.0 Baso # (Auto) 0.02 ESR 88 H PT 11.3 INR 0.99 APTT 28.8 Sodium 135 Potassium 3.4 L Chloride 96 L Carbon Dioxide 27 Anion Gap 14 BUN 10 Creatinine 0.7 Est GFR ( Amer) > 60 Est GFR (Non-Af Amer) > 60 Random Glucose 162 H Calcium 9.2 Phosphorus Magnesium Total Bilirubin 0.6 AST 45 H ALT 38 Alkaline Phosphatase 111 Troponin I 0.21 H* NT-Pro-B Natriuret Pep 151 Total Protein 8.9 H Albumin 4.7 Globulin 4.2 Albumin/Globulin Ratio 1.1 Triglycerides Cholesterol LDL Cholesterol Direct HDL Cholesterol Free T4 TSH 3rd Generation Blood Type Blood Type Confirm Antibody Screen BBK History Checked 10/20/18 10/20/18 10/20/18 19:18 20:00 20:45 WBC RBC Hgb Hct MCV MCH MCHC RDW Plt Count MPV Gran % Lymph % (Auto) [place] % (Auto) Eos % (Auto) Baso % (Auto) Gran # Lymph # (Auto) [place] # (Auto) Eos # (Auto) Baso # (Auto) ESR PT INR APTT Sodium Potassium Chloride Carbon Dioxide Anion Gap BUN Creatinine Est GFR ( Amer) Est GFR (Non-Af Amer) Random Glucose Calcium Phosphorus Magnesium Total Bilirubin AST ALT Alkaline Phosphatase Troponin I NT-Pro-B Natriuret Pep Total Protein Albumin Globulin Albumin/Globulin Ratio Triglycerides Cholesterol LDL Cholesterol Direct HDL Cholesterol Free T4 1.34 TSH 3rd Generation 0.78 Blood Type A POSITIVE Blood Type Confirm A POSITIVE Antibody Screen Negative BBK History Checked No verified bt 10/21/18 10/21/18 10/21/18 01:20 06:00 06:00 WBC 9.2 D RBC 4.67 Hgb 13.4 Hct 40.1 MCV 85.9 MCH 28.7 MCHC 33.4 RDW 13.1 Plt Count 303 MPV 8.9 Gran % 76.3 H Lymph % (Auto) 17.[address] [place] % (Auto) 5.4 Eos % (Auto) 0.2 L Baso % (Auto) 0.2 Gran # 7.05 H Lymph # (Auto) 1.7 [place] # (Auto) 0.5 Eos # (Auto) 0.0 Baso # (Auto) 0.02 ESR PT INR APTT Sodium 139 Potassium 3.5 L Chloride 101 Carbon Dioxide 28 Anion Gap 13 BUN 7 Creatinine 0.7 Est GFR ( Amer) > 60 Est GFR (Non-Af Amer) > 60 Random Glucose 129 H Calcium 9.0 Phosphorus 4.6 H Magnesium 2.4 H Total Bilirubin 0.7 AST 52 H ALT 37 Alkaline Phosphatase 98 Troponin I 0.16 H* D 0.14 H* NT-Pro-B Natriuret Pep Total Protein 8.1 Albumin 4.1 Globulin 3.9 Albumin/Globulin Ratio 1.1 Triglycerides 115 Cholesterol 233 H LDL Cholesterol Direct 145 H HDL Cholesterol 62 H Free T4 TSH 3rd Generation Blood Type Blood Type Confirm Antibody Screen BBK History Checked Attending/Attestation - Attestation I have personally seen and examined this patient.: Yes I have fully participated in the care of the patient.: Yes I have reviewed all pertinent clinical information: Yes Notes (Text): 10/21/18 16:13 I agree with the assessment and plan. Continue precautions to avoid elevated ICP: avoid hypertension, hyperglycemia, hyperthermia and keep head of bed elevated. Keppra 500 mg BID is recommended due to location of bleed. I do not recommend hypertonics at this time. MRI of the brain with and without contrast to evaluate for possible underlying mass is recommended. Thank you for this consultation.
--- NOTE | 2018-10-21 12:34 | CT ---
Date of service: 10/21/2018 PROCEDURE: CT HEAD WITHOUT CONTRAST. HISTORY: ICH COMPARISON: Comparison is made to the previous study dated 10/20/2018 TECHNIQUE: Axial computed tomography images were obtained through the head/brain without intravenous contrast. Radiation dose: Total exam DLP = 936.86 mGy-cm. This CT exam was performed using one or more of the following dose reduction techniques: Automated exposure control, adjustment of the mA and/or kV according to patient size, and/or use of iterative reconstruction technique. FINDINGS: HEMORRHAGE: Again noted is parenchymal hematoma at the right frontal parietal lobe surrounding with vasogenic edema. No significant interval change in the size and shape of this hematoma compared to the previous exam. There is adjacent small subarachnoid and subdural hemorrhage along the interhemispheric falx. BRAIN: Vasogenic edema surrounding the right frontal parietal hematoma. No atrophy or chronic microvascular ischemic changes. VENTRICLES: Unremarkable. No hydrocephalus. CALVARIUM: Unremarkable. PARANASAL SINUSES: Unremarkable as visualized. No significant inflammatory changes. MASTOID AIR CELLS: Unremarkable as visualized. No inflammatory changes. OTHER FINDINGS: None. IMPRESSION: No significant interval changes noted since the prior study.
--- NOTE | 2018-10-21 13:37 | CT ---
Date of service: 10/21/2018 PROCEDURE: CT Angiography of the Brain. HISTORY: SAH and intraparychamal parietal bleed COMPARISON: CT of the head 10/20/2018 TECHNIQUE: CT angiography of the intracranial arteries was performed. Coronal and sagittal maximum intensity projection reformated images were generated. Radiation dose: Total exam DLP = 101.72 mGy-cm. This CT exam was performed using one or more of the following dose reduction techniques: Automated exposure control, adjustment of the mA and/or kV according to patient size, and/or use of iterative reconstruction technique. FINDINGS: INTERNAL CEREBRAL ARTERIES: Unremarkable. The skull base, petrous, cavernous and supraclinoid segments are bilaterally widely patent. ANTERIOR CEREBRAL ARTERIES: Unremarkable. A1 and A2 segments are widely patent. Smaller distal branches unremarkable, as visualized. MIDDLE CEREBRAL ARTERIES: Unremarkable. M1 and M2 segments are widely patent. Perisylvian branches grossly symmetric. POSTERIOR CIRCULATION: Basilar Artery: Unremarkable. Distal Vertebral Arteries: Unremarkable. Posterior Cerebral Arteries: Unremarkable. Posterior Inferior Cerebellar Arteries: Unremarkable. ANEURYSM/ VASCULAR MALFORMATIONS: None. No change in the appearance of the 3.5 cm intraparenchymal hematoma in the right posterior frontal lobe OTHER FINDINGS: The report concurs with the preliminary [facility] report IMPRESSION: No evidence of aneurysm or occlusion
--- NOTE | 2018-10-21 13:41 | CP.PCM.PN ---
<Thaddeus Macedo - Last Filed: 10/21/18 13:38> Subjective - Date & Time of Evaluation Date of Evaluation: 10/21/18 Time of Evaluation: 09:41 - Subjective Subjective: Thaddeus Macedo Y1 Hospital Progress Note Patient seen and examined at bedside this morning. She is alert to person and place but not time. Left sided weakness and numbness present in the upper and lower extremities. NPO for now. Started on keppra. Denies any complaints at this time. Objective - Vital Signs/Intake and Output Vital Signs (last 24 hours): Temp Pulse Resp BP Pulse Ox 98.0 F 48 L 32 H 166/87 H 100 10/21/18 04:00 10/21/18 11:00 10/21/18 11:00 10/21/18 11:00 10/21/18 11:00 Intake and Output: 10/21/18 10/21/18 06:59 18:59 Intake Total 1510 Output Total 450 Balance 1060 - Medications Medications: Current Medications Nicardipine HCl (Cardene Iv Premix) 20 mg in 200 mls @ 50 mls/hr IV .Q4H PRN; Protocol PRN Reason: TITRATE PER MD ORDER Last Titration: 10/21/18 02:00 Dose: 0 mg/hr, 0 mls/hr Levetiracetam (Keppra 500mg Ivpb) 500 mg in 100 mls @ 400 mls/hr IVPB Q12 LUNA Last Admin: 10/21/18 10:04 Dose: 400 mls/hr Potassium Chloride (Potassium Chloride 10 Meq/100 Ml) 10 meq in 100 mls @ 50 mls/hr IVPB Q2H LUNA Stop: 10/21/18 14:14 Last Admin: 10/21/18 10:38 Dose: 50 mls/hr Pantoprazole Sodium (Protonix Inj) 40 mg IVP DAILY LUNA Last Admin: 10/21/18 10:19 Dose: 40 mg - Labs Labs: 10/21/18 06:00 10/21/18 06:00 PT 11.3 SECONDS (9.4-12.5) 10/20/18 19:18 INR 0.99 10/20/18 19:18 APTT 28.8 Seconds (25.1-36.5) 10/20/18 19:18 - Constitutional Appears: No Acute Distress - Head Exam Head Exam: ATRAUMATIC, NORMAL INSPECTION - Eye Exam Eye Exam: EOMI Pupil Exam: PERRL - ENT Exam ENT Exam: Mucous Membranes Moist - Neck Exam Neck Exam: Normal Inspection - Respiratory Exam Respiratory Exam: Clear to Ausculation Bilateral, NORMAL BREATHING PATTERN. absent: Accessory Muscle Use, Wheezes, Respiratory Distress - Cardiovascular Exam Cardiovascular Exam: REGULAR RHYTHM, +S1, +S2 - GI/Abdominal Exam GI & Abdominal Exam: Soft, Normal Bowel Sounds. absent: Firm, Guarding, Rigid - Extremities Exam Extremities Exam: Normal Inspection. absent: Calf Tenderness, Tenderness - Back Exam Back Exam: NORMAL INSPECTION - Neurological Exam Neurological Exam: Alert Additional comments: Muscle strength in left upper and lower extremities is 1/5. Right upper and lower extremities strength is 5/5. Alert to person and place but not time. Lethargic. - Skin Skin Exam: Normal Color, Warm Assessment and Plan - Assessment and Plan (Free Text) Assessment: 63 y/o female with PMH of HTN, DM, HLD, memory loss presents to ED with left sided weakness and slight speech impairment s/p mechanical fall. Patient is admitted to ICU for hemorrhagic stroke. Plan: Acute hemorrhagic stroke -NIHSS 10-11 today -AAOx2 -10/20 CT head showed right intraparynchmal parietal bleed, vasogenic edema and subrachnoid hemorrhage -10/[address] head today shows no interval change -10/20 CTA head and neck shows no aneurysm or occlusion -MRI brain per neuro -maintain SBP 120-150. 10mg labetolol if over 150, otherwise cardine drip if SBP over 160 -Neurology on consult -neurosurgery on consult, no intervention at this time -cardiology on consult -trops downtrending -echo pending -failed initial speech/swallow eval, repeat tomorrow -aspiration/seizure/vital/neuro check -PT/OT -Head above bed 45 degrees -no AC for now -started on keppra -NS 100 Hypokalemia -repleted, f/u AM labs Hx of HTN -goal of SBP 120-150 -hold home meds for now Hx of DM -insulin low sliding scale -A1c pending Leukocytosis -resolved today -blood/urine cx pending PPX/Diet -protonix, SCD -NPO for now, pending swallow eval tomorrow Patient seen and case discussed with attending, Dr. Delgadillo <Gildardo Delgadillo - Last Filed: 10/21/18 15:24> Objective - Vital Signs/Intake and Output Vital Signs (last 24 hours): Temp Pulse Resp BP Pulse Ox 98.0 F 48 L 32 H 166/87 H 100 10/21/18 04:00 10/21/18 11:00 10/21/18 11:00 10/21/18 11:00 10/21/18 11:00 Intake and Output: 10/21/18 10/21/18 06:59 18:59 Intake Total 1510 100 Output Total 450 Balance 1060 100 - Medications Medications: Current Medications Nicardipine HCl (Cardene Iv Premix) 20 mg in 200 mls @ 50 mls/hr IV .Q4H PRN; Protocol PRN Reason: TITRATE PER MD ORDER Last Titration: 10/21/18 13:30 Dose: 5 mg/hr, 50 mls/hr Levetiracetam (Keppra 500mg Ivpb) 500 mg in 100 mls @ 400 mls/hr IVPB Q12 LUNA Last Admin: 10/21/18 10:04 Dose: 400 mls/hr Sodium Chloride (Sodium Chloride 0.9%) 1,000 mls @ 100 mls/hr IV .Q10H LUNA Pantoprazole Sodium (Protonix Inj) 40 mg IVP DAILY LUNA Last Admin: 10/21/18 10:19 Dose: 40 mg - Labs Labs: 10/21/18 06:00 10/21/18 06:00 PT 11.3 SECONDS (9.4-12.5) 10/20/18 19:18 INR 0.99 10/20/18 19:18 APTT 28.8 Seconds (25.1-36.5) 10/20/18 19:18 Attending/Attestation - Attestation I have personally seen and examined this patient.: Yes I have fully participated in the care of the patient.: Yes I have reviewed all pertinent clinical information, including history, physical exam and plan: Yes Notes (Text): 10/21/18 15:19 63 year old female with past medical history of hypertension, diabetes, and dyslipidemia who presented with left sided weakness s/p mechanical fall at home. She was found to have hemorrhagic stroke on CT scan. Neurosurgery was notified; recommended conservative management without acute surgical intervention. Neurology is following as well; recommended MRI brain. Patient is also pending PT and swallow evaluation. Continue with frequent neurochecks. Patient was initially started on cardene drip and also on keppra now. Patient also had elevated troponins. Cardiology evaluation is requested and echocardiogram was ordered. Will replete and repeat potassium. is at bedside and questions were answered. Gildardo Delgadillo MD Hospitalist.
--- NOTE | 2018-10-21 21:09 | CON ---
DATE: 10/21/2018 CARDIOLOGY CONSULT REPORT REASON FOR CONSULTATION: Hypertension and hemorrhagic stroke. HISTORY OF PRESENT ILLNESS: The patient is a 63-year-old [place] female who has a history of hypertension, follows up with her primary physician, Dr. Jovel, was admitted because of altered mental status and a fall. The patient's initial head CT scan revealed acute parenchymal hemorrhage at the right frontoparietal lobe adjacent to subarachnoid and subdural hemorrhage, mild surrounding vasogenic edema. Clinically, the patient was noted to have left hemiplegia. No reported ventricular arrhythmia or hypotension, troponins were borderline elevated. The patient is oriented to place and when asked about any prior cardiac history, denied having any and she denied any chest pain at this time. SOCIAL HISTORY: Nonsmoker. She is , but . MEDICATIONS: Cardene infusion at 15 mL per hour, Keppra 500 mg intravenously every 12 hours, intravenously daily. REVIEW OF SYSTEMS: No reports of hypertension. No reports of seizures or ventricular arrhythmia. PHYSICAL EXAMINATION: GENERAL: The patient is a middle-aged female who does not appear to be in acute distress. VITAL SIGNS: Blood pressure 166/87, heart rate 48, respirations 32, and temperature 97.6. HEENT: No pallor or icterus. CHEST: Clear. HEART: S1 and S2 regular. EXTREMITIES: No edema. LABORATORY DATA: Recent hemoglobin and hematocrit is 13.4 and 40.1, white count and platelet count are within normal limits. The patient's SMA-7 is within normal limit except for glucose of 129 and potassium 3.5. Troponin 0.21, 0.16, and 0.14. Total cholesterol 233, LDL cholesterol 145, HDL cholesterol of 62, elevated. Serum triglycerides are within normal limits. Repeat head CT scan today revealed no significant interval change. CT angio of the head, no evidence of aneurysm or occlusion. EKG revealed sinus bradycardia at a rate of 53 with T-wave inversion in V3 and V4. ASSESSMENT: 1. Acute right frontoparietal hemorrhagic infarcts with adjacent subarachnoid and subdural bleed with mild vasogenic edema. 2. Hypertension. 3. Borderline troponin elevation related to the acute hemorrhagic infarct. 4. Hyperlipidemia. RECOMMENDATIONS: Continue current IV Cardene as well as IV Keppra. I would administer one dose of Lasix 40 mg IV push, intravenous potassium chloride with a total of 20 mEq. Obtain an echocardiogram. Dane Marion MD
[2018-10-22] MEDS: Sodium Chloride 0.9% 1,000 ML IV SCH ×2 (00:16→10:47)
[2018-10-22 06:28] LABS: BASO # 0.04 K/mm3 (0.0-2.0); BASO % 0.5 % (0.0-3.0); EOS % 0.4 % (1.5-5.0); GRAN # 5.51 (1.4-6.5); GRAN % 72.5 % (50.0-68.0); HEMOGLOBIN 13.1 g/dL (12.0-16.0); LYMPH # 1.6 (1.2-3.4); LYMPH % 21.3 % (22.0-35.0); MEAN CELL VOLUME 88.2 fl (80.0-105.0); MEAN CORPUSCULAR HEMOGLOBIN 28.7 pg (25.0-35.0); MEAN CORPUSCULAR HGB CONC 32.5 g/dl (31.0-37.0); MEAN PLATELET VOLUME 9.4 fl (7.0-11.0); MONO # 0.4 (0.1-0.6); MONO % 5.3 % (1.0-6.0); RBC 4.57 10^6/uL (3.5-6.1); WHITE BLOOD COUNT 7.6 10^3/uL (4.5-11.0)
[2018-10-22 06:38] LABS: ALT/SGPT 34 U/L (7-56); AST/SGOT 55 U/L (14-36); BLOOD UREA NITROGEN 8 mg/dL (7-21); CALCIUM 8.6 mg/dL (8.4-10.5); GFR NON-AFRICAN AMERICAN > 60
--- NOTE | 2018-10-22 07:02 | CP.PCM.PN ---
<LozadaGermaniajenni Vega - Last Filed: 10/22/18 13:02> Subjective - Date & Time of Evaluation Date of Evaluation: 10/22/18 Time of Evaluation: 06:59 - Subjective Subjective: Resident Progress Note for Hospitalist Service Patient examined at bedside. No acute events overnight. Patient reports some improvement in left sided weakness. Denies headache, dizziness, fevers, chills, nausea, vomiting, chest pain, shortness of breath. Patient passed swallow eval. Objective - Vital Signs/Intake and Output Vital Signs (last 24 hours): Temp Pulse Resp BP Pulse Ox 98.1 F 51 L 27 H 144/75 98 10/21/18 23:00 10/22/18 06:20 10/22/18 06:20 10/22/18 06:00 10/22/18 06:20 Intake and Output: 10/21/18 10/22/18 18:59 06:59 Intake Total 1430 1350 Output Total 350 150 Balance 1080 1200 - Medications Medications: Current Medications Nicardipine HCl (Cardene Iv Premix) 20 mg in 200 mls @ 50 mls/hr IV .Q4H PRN; Protocol PRN Reason: TITRATE PER MD ORDER Last Titration: 10/21/18 19:27 Dose: 0 mg/hr, 0 mls/hr Levetiracetam (Keppra 500mg Ivpb) 500 mg in 100 mls @ 400 mls/hr IVPB Q12 [facility] Last Admin: 10/21/18 21:28 Dose: 400 mls/hr Sodium Chloride (Sodium Chloride 0.9%) 1,000 mls @ 100 mls/hr IV .Q10H [facility] Last Admin: 10/22/18 00:16 Dose: 100 mls/hr Pantoprazole Sodium (Protonix Inj) 40 mg IVP DAILY [facility] Last Admin: 10/21/18 10:19 Dose: 40 mg - Labs Labs: 10/22/18 05:30 10/22/18 05:30 PT 11.3 SECONDS (9.4-12.5) 10/20/18 19:18 INR 0.99 10/20/18 19:18 APTT 28.8 Seconds (25.1-36.5) 10/20/18 19:18 - Additional Findings Additional findings: - Constitutional Appears: No Acute Distress - Head Exam Head Exam: ATRAUMATIC, NORMAL INSPECTION - Eye Exam Eye Exam: EOMI - ENT Exam ENT Exam: Mucous Membranes Moist - Neck Exam Neck Exam: Normal Inspection - Respiratory Exam Respiratory Exam: Clear to Ausculation Bilateral, NORMAL BREATHING PATTERN. absent: Accessory Muscle Use, Wheezes, Respiratory Distress - Cardiovascular Exam Cardiovascular Exam: REGULAR RHYTHM, +S1, +S2. absent: Systolic Murmurs - GI/Abdominal Exam GI & Abdominal Exam: Soft, Normal Bowel Sounds. absent: Firm, Guarding, Rigid, Tenderness - Extremities Exam Extremities Exam: Normal Inspection. absent: Calf Tenderness, Tenderness - Back Exam Back Exam: NORMAL INSPECTION - Neurological Exam Neurological Exam: Alert Additional comments: Muscle strength in left upper and lower extremities is 1/5. Right upper and lower extremities strength is 5/5. Lethargic. - Skin Skin Exam: Normal Color, Warm Assessment and Plan - Assessment and Plan (Free Text) Assessment: 63 y/o female with PMH of HTN, DM, HLD, memory loss presents to ED with left sided weakness and slight speech impairment s/p mechanical fall. Patient is admitted to ICU for hemorrhagic stroke. Plan: Acute hemorrhagic stroke -AAOx3 -10/20 CT head showed right intraparynchmal parietal bleed, vasogenic edema and subarachnoid hemorrhage -10/[address] head shows no interval change -10/20 CTA head and neck shows no aneurysm or occlusion -MRI brain per neuro -maintain SBP 120-150. 10mg labetolol if over 150, otherwise cardine drip if SBP over 160 -Neurology on consult -neurosurgery on consult, no intervention at this time -cardiology on consult -trops downtrending -echo shows LVEF 69%, normal left ventricular wall thickness -aspiration/seizure/vital/neuro check -PT/OT -Head above bed 45 degrees -no AC for now -keppra 500 mg IV Q12 -NS 100 Hx of HTN -goal of SBP 120-150 -hold home meds for now Hx of DM -insulin low sliding scale -A1c pending Leukocytosis -afebrile, no leukocytosis -BCx neg x2 PPX/Diet -protonix, SCD -diet advanced Patient seen and case discussed with attending, Dr. Leona Lozada PGY-1 <Gildardo Delgadillo - Last Filed: 10/22/18 18:54> Objective - Vital Signs/Intake and Output Vital Signs (last 24 hours): Temp Pulse Resp BP Pulse Ox 98.1 F 53 L 15 135/71 98 10/21/18 23:00 10/22/18 12:00 10/22/18 12:00 10/22/18 12:00 10/22/18 12:00 Intake and Output: 10/22/18 10/22/18 06:59 18:59 Intake Total 1350 170.5 Output Total 150 Balance 1200 170.5 - Medications Medications: Current Medications Nicardipine HCl (Cardene Iv Premix) 20 mg in 200 mls @ 50 mls/hr IV .Q4H PRN; Protocol PRN Reason: TITRATE PER MD ORDER Last Titration: 10/22/18 10:48 Dose: 5 mg/hr, 50 mls/hr Levetiracetam (Keppra 500mg Ivpb) 500 mg in 100 mls @ 400 mls/hr IVPB Q12 [facility] Last Admin: 10/22/18 10:43 Dose: 400 mls/hr Sodium Chloride (Sodium Chloride 0.9%) 1,000 mls @ 100 mls/hr IV .Q10H [facility] Last Admin: 10/22/18 10:47 Dose: 100 mls/hr Pantoprazole Sodium (Protonix Inj) 40 mg IVP DAILY [facility] Last Admin: 10/22/18 10:43 Dose: 40 mg - Labs Labs: 10/22/18 05:30 10/22/18 05:30 PT 11.3 SECONDS (9.4-12.5) 10/20/18 19:18 INR 0.99 10/20/18 19:18 APTT 28.8 Seconds (25.1-36.5) 10/20/18 19:18 Attending/Attestation - Attestation I have personally seen and examined this patient.: Yes I have fully participated in the care of the patient.: Yes I have reviewed all pertinent clinical information, including history, physical exam and plan: Yes Notes (Text): 10/22/18 18:53 63 year old female with past medical history of hypertension, diabetes, and dyslipidemia who presented with left sided weakness s/p mechanical fall at home. She was found to have hemorrhagic stroke on CT scan. Neurosurgery was notified; recommended conservative management without acute surgical intervention. Neurology is following as well; recommended MRI brain which is still pending. PT recommended acute rehab. Continue with frequent neurochecks. Patient was initially started on cardene drip and also on keppra now. Patient also had elevated troponins possibly secondary to above. Cardiology is following. Echocardiogram was reviewed. Gildardo Delgadillo MD Hospitalist.
[2018-10-22] MEDS: Nicardipine 20 MG/200 ML 20 MG/200 ML BAG IV PRN (08:23)
--- NOTE | 2018-10-22 08:51 | CARD ---
APPROVED REPORT Date of service: 10/21/2018 EXAM: Two-dimensional and M-mode echocardiogram with Doppler and color Doppler. Other Information Quality : AverageRhythm : INDICATION S/P STROKE 2D DIMENSIONS Left Atrium (2D)3.7 (1.6-4.0cm)IVSd1.0 (0.7-1.1cm) LVDd3.9 (3.9-5.9cm)PWd1.0 (0.7-1.1cm) LVDs2.4 (2.5-4.0cm)FS (%) 38.2 % LVEF (%)69.0 (>50%) M-Mode DIMENSIONS Aortic Root2.70 (2.2-3.7cm)Aortic Cusp Exc.1.60 (1.5-2.0cm) Aortic Valve AoV Peak Iznlozpr815.0cm/s Mitral Valve MV E Fayayqgc00.3cm/sMV A Mpunxngn81.3cm/sE/A ratio0.8 TDI Lateral E' Peak V10.20cm/sMedial E' Peak V6.34cm/sE/Lateral E'7.4 E/Medial E'11.9 Pulmonary Valve PV Peak Akaucppi714.0cm/sPV Peak Grad.4mmHg Tricuspid Valve TR Peak Rjulwxpo978el/sRAP [id number] Peak Gr.17mmHg [id number] LEFT VENTRICLE The left ventricle is normal size. There is normal left ventricular wall thickness. The left ventricular function is normal. The left ventricular ejection fraction is within the normal range. There is normal LV segmental wall motion. RIGHT VENTRICLE The right ventricle is normal size. ATRIA The left atrium size is normal. The right atrium size is normal. The interatrial septum is intact with no evidence for an atrial septal defect. AORTIC VALVE The aortic valve is normal in structure. MITRAL VALVE The mitral valve is normal in structure. TRICUSPID VALVE The tricuspid valve is normal in structure. There is trace tricuspid regurgitation. PULMONIC VALVE The pulmonic valve is not well visualized. There is trace pulmonic valvular regurgitation. GREAT VESSELS The aortic root is normal in size. PERICARDIAL EFFUSION There is no pericardial effusion. <Conclusion> The left ventricle is normal size. There is normal left ventricular wall thickness. The left ventricular function is normal.
[2018-10-22] MEDS: levETIRAcetam 500mg IVPB 500 MG/100 ML BAG IVPB SCH ×2 (10:43→21:43)
--- NOTE | 2018-10-22 10:48 | CP.PCM.PN ---
<Moshe Chase - Last Filed: 10/22/18 10:56> Subjective - Date & Time of Evaluation Date of Evaluation: 10/22/18 Time of Evaluation: 10:44 - Subjective Subjective: Patient seen and examined at bedside in no acute distress. Patient is communicative. Patient was seen with speech pathologist today. As per speech pathologist patient is able to follow commands and has facial symmetry. Progress seen in patient's status compared to yesterday. Patient realizes she is in the hospital and now acknowledges she is not sure why in comparison to yesterday when patient believed she was giving to her son. Patient still states she is 37 years old. When asked to move her right side she can now reply saying she is unable as opposed to yesterday when she wouldn't respond regarding her right side. Objective - Vital Signs/Intake and Output Vital Signs (last 24 hours): Temp Pulse Resp BP Pulse Ox 98.1 F 51 L 27 H 144/75 98 10/21/18 23:00 10/22/18 06:20 10/22/18 06:20 10/22/18 06:00 10/22/18 06:20 Intake and Output: 10/22/18 10/22/18 06:59 18:59 Intake Total 1350 50 Output Total 150 Balance 1200 50 - Medications Medications: Current Medications Nicardipine HCl (Cardene Iv Premix) 20 mg in 200 mls @ 50 mls/hr IV .Q4H PRN; Protocol PRN Reason: TITRATE PER MD ORDER Last Admin: 10/22/18 08:23 Dose: 5 mg/hr, 50 mls/hr Levetiracetam (Keppra 500mg Ivpb) 500 mg in 100 mls @ 400 mls/hr IVPB Q12 [facility] Last Admin: 10/22/18 10:43 Dose: 400 mls/hr Sodium Chloride (Sodium Chloride 0.9%) 1,000 mls @ 100 mls/hr IV .Q10H [facility] Last Admin: 10/22/18 00:16 Dose: 100 mls/hr Pantoprazole Sodium (Protonix Inj) 40 mg IVP DAILY [facility] Last Admin: 10/22/18 10:43 Dose: 40 mg - Labs Labs: 10/22/18 05:30 10/22/18 05:30 PT 11.3 SECONDS (9.4-12.5) 10/20/18 19:18 INR 0.99 10/20/18 19:18 APTT 28.8 Seconds (25.1-36.5) 10/20/18 19:18 - Constitutional Appears: No Acute Distress - Head Exam Head Exam: ATRAUMATIC, NORMAL INSPECTION, NORMOCEPHALIC - Eye Exam Eye Exam: absent: Normal appearance (patient is now maintaining eyes open, day prior patient kept eyes shut.) - Respiratory Exam Respiratory Exam: Clear to Ausculation Bilateral, NORMAL BREATHING PATTERN - Cardiovascular Exam Cardiovascular Exam: REGULAR RHYTHM, +S1, +S2 - GI/Abdominal Exam GI & Abdominal Exam: Soft, Normal Bowel Sounds - Back Exam Back Exam: NORMAL INSPECTION - Neurological Exam Neurological Exam: Alert, Awake. absent: Oriented x3 (patient still believes she is 37 yo and [place] the [place]. ) Neuro motor strength exam: Left Upper Extremity: 3, Right Upper Extremity: 0 (states she can't move it), Left Lower Extremity: 3, Right Lower Extremity: 0 (states she can't move it) - Psychiatric Exam Psychiatric exam: Normal Affect - Skin Skin Exam: Intact, Normal Color, Warm Assessment and Plan - Assessment and Plan (Free Text) Assessment: 63 F with a history of DM, hypertension, dementia, dyslipidemia presenting s/p fall with found to have hemorrhagic stroke secondary to intraparenchymal hemorrhage due to possible mass with adjacent subdural and subarachnoid hemorrhage. Plan: Hemorrhagic stroke secondary to intraparenchymal hemorrhage at right frontal parietal lobe with adjacent trace subarachnoid and subdural hemorrhage -Avoid hypertension -Repeat CT head to monitor midline shift demonstrates no interval changes -MRI brain with and without contrast to r/o mass -Head above bed 45 degrees -Q1H neurology checks and Q15min pupil checks -Continue with keppra 500 mg BID <Armando Honeycutt - Last Filed: 10/23/18 14:48> Objective - Vital Signs/Intake and Output Vital Signs (last 24 hours): Temp Pulse Resp BP Pulse Ox 98.5 F 60 20 184/90 H 93 L 10/23/18 12:00 10/23/18 14:17 10/23/18 14:01 10/23/18 14:17 10/23/18 14:01 Intake and Output: 12/23/18 12/23/18 06:59 18:59 Intake Total 950 Output Total 800 Balance 150 - Medications Medications: Current Medications Nicardipine HCl (Cardene Iv Premix) 20 mg in 200 mls @ 50 mls/hr IV .Q4H PRN; Protocol PRN Reason: TITRATE PER MD ORDER Last Titration: 10/22/18 10:48 Dose: 5 mg/hr, 50 mls/hr Levetiracetam (Keppra 500mg Ivpb) 500 mg in 100 mls @ 400 mls/hr IVPB Q12 [facility] Last Admin: 10/23/18 10:09 Dose: 400 mls/hr Pantoprazole Sodium (Protonix Inj) 40 mg IVP DAILY [facility] Last Admin: 10/23/18 10:09 Dose: 40 mg - Labs Labs: 10/23/18 05:30 10/23/18 05:30 PT 11.3 SECONDS (9.4-12.5) 10/20/18 19:18 INR 0.99 10/20/18 19:18 APTT 28.8 Seconds (25.1-36.5) 10/20/18 19:18 Attending/Attestation - Attestation I have personally seen and examined this patient.: Yes I have fully participated in the care of the patient.: Yes I have reviewed all pertinent clinical information, including history, physical exam and plan: Yes Notes (Text): 10/23/18 14:48 I agree with the assessment and plan. Will take ICH precautions and start Keppra for prophylaxis.
--- NOTE | 2018-10-22 14:35 | PN ---
DATE: 10/22/2018 ADMINISTRATIVE EXECUTIVE NOTE SUBJECTIVE: The patient is resting in bed, does state that she feels a little chilly, note that it is rather chilly in her room. Hemodynamically, she is stable with O2 saturation of 98% on 2 liters of nasal cannula. She continues to say she has some weakness on her left side. She is answering questions appropriately and speech is clear. PHYSICAL EXAMINATION: VITAL SIGNS: Note that her temperature is 98.1, pulse is 51, respirations of 27 and BP is 144/75. SKIN: Warm and dry. HEENT: Head: Atraumatic, normocephalic. Eyes are reactive to light. Ears, nose and throat seemed to be within normal limits. NECK: Supple. No JVD. No thyroid enlargement, no lymph nodes. HEART: Has a regular rate and rhythm. Normal S1 and S2. LUNGS: Reveal fairly good breath sounds bilaterally. ABDOMEN: Soft. Decreased bowel sounds. Genitalia and Rectal: Deferred. MUSCULOSKELETAL: No joint deformities. EXTREMITIES: Reveal trace lower extremity edema. NEUROLOGICAL: She has weakness on her left side, upper and lower extremities. As far as her laboratories are concerned, her white count is 7.6, hemoglobin is 13.1, hematocrit 40.3 with platelets of 283,000. Her sodium is 140, potassium 3.8, chloride 105, CO2 of 26 with a BUN of 8, creatinine of 0.7 and a glucose of 78. As far as my impression, this patient has a right parietal hemorrhagic stroke and history of hypertension, diabetes and hyperlipidemia. She has left-sided upper and lower extremity weakness. As far as our plan, we will continue to follow her closely, neurologically. She does have a Neurology consult as well. The patient is on levetiracetam or Keppra. She is nicardipine, as well as Protonix and IV fluids. We will continue to treat aggressively and follow closely along with the other consultants and the primary care doctor. Len Osborne MD
--- NOTE | 2018-10-22 18:33 | PN ---
DATE: 10/22/2018 SUBJECTIVE: The patient denies any headache, chest pain or shortness of breath. She is still experiencing left-sided weakness. PHYSICAL EXAMINATION: VITAL SIGNS: Blood pressure 135/71, heart rate 58, and temperature 98.1. HEENT: No pallor or icterus. CHEST: Clear. HEART: S1 and S2 regular.. EXTREMITIES: No edema. LABORATORY DATA: Today's hemoglobin and hematocrit are 13.1 and 40.3, white count and platelet count are within normal limits. SMA-7, today is entirely within normal limit. Echocardiogram study performed yesterday reported normal ventricular size, well thickness and ejection fraction. ASSESSMENT: 1. Hemorrhagic right frontoparietal infarct. 2. Hypertension. 3. Hyperlipidemia. RECOMMENDATIONS: Continue IV Cardene infusion. Continue IV Keppra, IV Protonix and normal saline infusion. Dane Marion MD
[2018-10-22] MEDS ORDERED: Dexamethasone 10 MG in Sodium Chloride 0.9% 50 ML IV ONE (20:41)
[2018-10-22] MEDS ORDERED: Magnesium Sulfate 1 gm in D5W 1 GM/100 ML BAG IVPB ONE (20:41)
[2018-10-22] MEDS ORDERED: Valproate 500 MG in Sodium Chloride 0.9% 100 ML IVPB ONE (20:45)
[2018-10-23 06:16] LABS: GRAN # 6.32 (1.4-6.5); HEMOGLOBIN 13.2 g/dL (12.0-16.0); LYMPH # 0.7 (1.2-3.4); LYMPH % 9.3 % (22.0-35.0); MEAN CELL VOLUME 86.7 fl (80.0-105.0); MEAN CORPUSCULAR HEMOGLOBIN 28.4 pg (25.0-35.0); MEAN CORPUSCULAR HGB CONC 32.8 g/dl (31.0-37.0); MEAN PLATELET VOLUME 8.8 fl (7.0-11.0); MONO # 0.1 (0.1-0.6); MONO % 0.7 % (1.0-6.0); RBC 4.65 10^6/uL (3.5-6.1)
[2018-10-23 06:26] LABS: ALBUMIN 3.9 g/dL (3.0-4.8); ALT/SGPT 36 U/L (7-56); AST/SGOT 46 U/L (14-36); BLOOD UREA NITROGEN 11 mg/dL (7-21); CALCIUM 8.5 mg/dL (8.4-10.5); GFR NON-AFRICAN AMERICAN > 60
--- NOTE | 2018-10-23 10:06 | CP.PCM.PN ---
<Jacinto Lozada L - Last Filed: 10/23/18 13:32> Subjective - Date & Time of Evaluation Date of Evaluation: 10/23/18 Time of Evaluation: 08:00 - Subjective Subjective: Resident Progress Note for Hospitalist Service Patient examined at bedside. No acute events overnight. Patient's left sided weakness unchanged from prior. States she has no complaints. Denies headache, dizziness, fevers, chills, chest pain, shortness of breath, abdominal pain, diarrhea, dysuria. Objective - Vital Signs/Intake and Output Vital Signs (last 24 hours): Temp Pulse Resp BP Pulse Ox 98.5 F 50 L 28 H 137/76 99 10/23/18 05:00 10/23/18 06:00 10/23/18 06:00 10/23/18 06:00 10/23/18 06:00 Intake and Output: 10/23/18 10/23/18 06:59 18:59 Intake Total 950 Output Total 800 Balance 150 - Medications Medications: Current Medications Nicardipine HCl (Cardene Iv Premix) 20 mg in 200 mls @ 50 mls/hr IV .Q4H PRN; Protocol PRN Reason: TITRATE PER MD ORDER Last Titration: 10/22/18 10:48 Dose: 5 mg/hr, 50 mls/hr Levetiracetam (Keppra 500mg Ivpb) 500 mg in 100 mls @ 400 mls/hr IVPB Q12 [facility] Last Admin: 10/22/18 21:43 Dose: 400 mls/hr Sodium Chloride (Sodium Chloride 0.9%) 1,000 mls @ 100 mls/hr IV .Q10H [facility] Last Admin: 10/22/18 10:47 Dose: 100 mls/hr Pantoprazole Sodium (Protonix Inj) 40 mg IVP DAILY [facility] Last Admin: 10/22/18 10:43 Dose: 40 mg - Labs Labs: 10/23/18 05:30 10/23/18 05:30 PT 11.3 SECONDS (9.4-12.5) 10/20/18 19:18 INR 0.99 10/20/18 19:18 APTT 28.8 Seconds (25.1-36.5) 10/20/18 19:18 - Additional Findings Additional findings: - Constitutional Appears: No Acute Distress - Head Exam Head Exam: ATRAUMATIC, NORMAL INSPECTION - Eye Exam Eye Exam: EOMI - ENT Exam ENT Exam: Mucous Membranes Moist - Neck Exam Neck Exam: Normal Inspection - Respiratory Exam Respiratory Exam: Clear to Auscultation Bilateral, NORMAL BREATHING PATTERN. absent: Accessory Muscle Use, Wheezes - Cardiovascular Exam Cardiovascular Exam: REGULAR RHYTHM, +S1, +S2. absent: Systolic Murmurs - GI/Abdominal Exam GI & Abdominal Exam: Soft, Normal Bowel Sounds. absent: Firm, Guarding, Rigid, Tenderness - Extremities Exam Extremities Exam: Normal Inspection. absent: Calf Tenderness, Tenderness - Back Exam Back Exam: NORMAL INSPECTION - Neurological Exam Neurological Exam: Alert, Oriented x3 Additional comments: Muscle strength in LUE and LLE +1/5. RUE and RLE +5/5. - Skin Skin Exam: Normal Color, Warm Assessment and Plan - Assessment and Plan (Free Text) Assessment: 63 y/o female with PMH of HTN, DM, HLD, memory loss presents to ED with left sided weakness and slight speech impairment s/p mechanical fall and admitted to ICU for hemorrhagic stroke. Plan: Hemorrhagic stroke - AAOx3 - CT head showed right intraparenchymal parietal bleed, vasogenic edema and subarachnoid hemorrhage - repeat CT head shows no interval change - CTA head and neck shows no aneurysm or occlusion - MRI shows large parenchymal hematoma in right parietal and posterior frontal region with mild surrounding mass effect - no surgical intervention as per neurosurgery recs - Neurology on consult - Cardiology on consult - Echo shows LVEF 69%, normal left ventricular wall thickness - Lipid panel 233 cholesterol, 145 LDL, 62 HDL - PT/OT - no anticoagulation - keppra 500 mg IV Q12, cardene drip - NS 100 ccs/hr HTN - goal of SBP 120-150 - hold home meds for now T2DM - low ISS - accuchecks PPX -protonix, SCDs Patient seen and case discussed with attending, Dr. Leona Lozada PGY-1 <Gildardo Delgadillo - Last Filed: 10/23/18 15:57> Objective - Vital Signs/Intake and Output Vital Signs (last 24 hours): Temp Pulse Resp BP Pulse Ox 98.5 F 94 H 19 120/68 91 L 10/23/18 12:00 10/23/18 15:00 10/23/18 15:00 10/23/18 15:00 10/23/18 15:00 Intake and Output: 10/23/18 10/23/18 06:59 18:59 Intake Total 950 Output Total 800 Balance 150 - Medications Medications: Current Medications Nicardipine HCl (Cardene Iv Premix) 20 mg in 200 mls @ 50 mls/hr IV .Q4H PRN; Protocol PRN Reason: TITRATE PER MD ORDER Last Titration: 10/22/18 10:48 Dose: 5 mg/hr, 50 mls/hr Levetiracetam (Keppra 500mg Ivpb) 500 mg in 100 mls @ 400 mls/hr IVPB Q12 [facility] Last Admin: 10/23/18 10:09 Dose: 400 mls/hr Pantoprazole Sodium (Protonix Inj) 40 mg IVP DAILY [facility] Last Admin: 10/23/18 10:09 Dose: 40 mg - Labs Labs: 10/23/18 05:30 10/23/18 05:30 PT 11.3 SECONDS (9.4-12.5) 10/20/18 19:18 INR 0.99 10/20/18 19:18 APTT 28.8 Seconds (25.1-36.5) 10/20/18 19:18 Attending/Attestation - Attestation I have personally seen and examined this patient.: Yes I have fully participated in the care of the patient.: Yes I have reviewed all pertinent clinical information, including history, physical exam and plan: Yes Notes (Text): 10/23/18 15:54 63 year old female with past medical history of hypertension, diabetes, and dyslipidemia who presented with left sided weakness s/p mechanical fall at home. She was found to have hemorrhagic stroke on CT scan. Neurosurgery was notified; recommended conservative management without acute surgical intervention. Neurology is following as well; recommended MRI brain which was done today which showed large parenchymal hematoma in the right parietal and posterior frontal region with mild surrounding mass effect. Will obtain CT chest/abdomen/pelvis for further evaluation. PT recommended acute rehab. Continue with frequent neurochecks. Patient was initially started on cardene drip and also on keppra now. Patient also had elevated troponins possibly secondary to above. Cardiology is following. Echocardiogram was reviewed. Gildardo Delgadillo MD Hospitalist.
[2018-10-23] MEDS: Sodium Chloride 0.9% 1,000 ML IV SCH (10:08)
[2018-10-23] MEDS: levETIRAcetam 500mg IVPB 500 MG/100 ML BAG IVPB SCH ×2 (10:09→22:43)
[2018-10-23] MEDS ORDERED: Gadodiamide 287 MG/ML VIAL (15ML) IV ONE (10:40)
--- NOTE | 2018-10-23 11:48 | MRI ---
Date of service: 10/23/2018 PROCEDURE: MRI BRAIN WITH AND WITHOUT CONTRAST HISTORY: Intraparenchymal hemorrhage COMPARISON: Comparison made with CT scan brain 10/21/2018. TECHNIQUE: Multiplanar, multisequence MR images of the brain were obtained with and without intravenous contrast enhancement. FINDINGS: HEMORRHAGE: Redemonstrated is a large rounded hematoma within the right posterior frontoparietal deep white matter. Hematoma exhibits mixed signal consistent with varying degrees of evolution and hemorrhagic byproducts. There is a thin rim of edema surrounding the hematoma as well. Changes result in mild mass effect with overlying sulcal effacement and mild inferior and slight medial compressive effects on the superior margin of the right lateral ventricle. Additionally, there also appears to be a small amount of subarachnoid hemorrhage within overlying sulci at the vertex. DWI: No evidence of an acute or early subacute infarction. BRAIN PARENCHYMA: There appears to be minimal chronic periventricular white matter ischemic changes. Mild generalized volume loss. ENHANCEMENT: No significant abnormal enhancement identified at this time. VENTRICLES: No obstructive hydrocephalus. CRANIUM: Unremarkable. ORBITS: Changes of bilateral cataract surgery again noted. PARANASAL SINUSES/MASTOIDS: Clear VASCULAR SYSTEM: Visualized major vascular flow voids at skull base patent. OTHER FINDINGS: None . IMPRESSION: There is a large parenchymal hematoma the in the right parietal and posterior frontal region with mild surrounding mass effect as detailed above. No abnormal enhancement identified Minimal Magaly ventricular white matter ischemic changes. Mild generalized volume loss.
--- NOTE | 2018-10-23 15:15 | CP.PCM.PN ---
<Moshe Chase - Last Filed: 10/23/18 15:18> Subjective - Date & Time of Evaluation Date of Evaluation: 10/23/18 Time of Evaluation: 10:45 - Subjective Subjective: Patient seen and examined at bedside in no acute distress. Patient is able to answer that she is in the hospital, when asked why she states she "I fell down." Patient states headache has improved. ROS limited due to patient's status. Objective - Vital Signs/Intake and Output Vital Signs (last 24 hours): Temp Pulse Resp BP Pulse Ox 98.5 F 60 20 184/90 H 93 L 10/23/18 12:00 10/23/18 14:17 10/23/18 14:01 10/23/18 14:17 10/23/18 14:01 Intake and Output: 10/23/18 10/23/18 06:59 18:59 Intake Total 950 Output Total 800 Balance 150 - Medications Medications: Current Medications Nicardipine HCl (Cardene Iv Premix) 20 mg in 200 mls @ 50 mls/hr IV .Q4H PRN; Protocol PRN Reason: TITRATE PER MD ORDER Last Titration: 10/22/18 10:48 Dose: 5 mg/hr, 50 mls/hr Levetiracetam (Keppra 500mg Ivpb) 500 mg in 100 mls @ 400 mls/hr IVPB Q12 [facility] Last Admin: 10/23/18 10:09 Dose: 400 mls/hr Pantoprazole Sodium (Protonix Inj) 40 mg IVP DAILY [facility] Last Admin: 10/23/18 10:09 Dose: 40 mg - Labs Labs: 10/23/18 05:30 10/23/18 05:30 PT 11.3 SECONDS (9.4-12.5) 10/20/18 19:18 INR 0.99 10/20/18 19:18 APTT 28.8 Seconds (25.1-36.5) 10/20/18 19:18 - Head Exam Head Exam: ATRAUMATIC, NORMAL INSPECTION, NORMOCEPHALIC - Eye Exam Pupil Exam: PERRL - Respiratory Exam Respiratory Exam: Clear to Ausculation Bilateral, NORMAL BREATHING PATTERN. absent: Wheezes - Cardiovascular Exam Cardiovascular Exam: REGULAR RHYTHM, +S1, +S2 - Extremities Exam Extremities Exam: Normal Inspection - Neurological Exam Neurological Exam: Alert, Awake. absent: Oriented x3 Neuro motor strength exam: Left Upper Extremity: 3, Right Upper Extremity: 2/1, Left Lower Extremity: 3, Right Lower Extremity: 0 - Psychiatric Exam Psychiatric exam: Depressed, Normal Affect - Skin Skin Exam: Normal Color, Warm Assessment and Plan - Assessment and Plan (Free Text) Assessment: 63 F with a history of DM, hypertension, dementia, dyslipidemia presenting s/p fall with found to have hemorrhagic stroke secondary to intraparenchymal hemorrhage due to possible mass with adjacent subdural and subarachnoid hemorrhage. Plan: Hemorrhagic stroke secondary to intraparenchymal hemorrhage at right frontal parietal lobe with adjacent trace subarachnoid and subdural hemorrhage -Avoid hypertension -Patient given decadron, magnesium, depakote for neurogenic migraine which has resolved patient's headache -Repeat CT head to monitor midline shift demonstrates no interval changes -MRI brain with and without contrast to r/o mass reveals possible mass which most likely has been hemorrhaging at different periods of time; Recommend CT chest/abdomen/pelvis for primary source of mass since region mass is located is usually metastatic in origin -Continue with keppra 500 mg BID for prophylaxis <Armando Honeycutt - Last Filed: 11/07/18 18:04> Objective - Vital Signs/Intake and Output Vital Signs (last 24 hours): Temp Pulse Resp BP Pulse Ox 985 F H 95 H 20 114/78 99 11/04/18 06:00 11/04/18 06:00 11/04/18 06:00 11/04/18 06:00 11/04/18 06:00 - Labs Labs: 10/30/18 06:45 11/01/18 07:30 PT 11.3 SECONDS (9.4-12.5) 10/20/18 19:18 INR 0.99 10/20/18 19:18 APTT 28.8 Seconds (25.1-36.5) 10/20/18 19:18 Attending/Attestation - Attestation I have personally seen and examined this patient.: Yes I have fully participated in the care of the patient.: Yes I have reviewed all pertinent clinical information, including history, physical exam and plan: Yes Notes (Text): 11/07/18 18:04 I agree with the assessment and plan. Will continue current management.
--- NOTE | 2018-10-23 15:50 | PN ---
DATE: 10/23/2018 SUBJECTIVE: The patient is resting in bed. No real complaints this morning. She is hemodynamically stable. O2 saturations are good with O2 via nasal cannula. The patient does have some weakness on the left side but answers questions appropriately. PHYSICAL EXAMINATION: VITAL SIGNS: As far as her physical exam is concerned she has temperature is 98.5, pulse is 50, respirations are 28 and BP is 137/76. SKIN: Warm and dry. HEENT: Head atraumatic, normocephalic. Eyes reactive. Ear, nose and throat seemed to be within normal limits. NECK: Her neck is supple. No JVD. No thyroid enlargement or lymph nodes. HEART: Regular rate and rhythm. Normal S1, S2. LUNGS: Reveal good breath sounds bilaterally. ABDOMEN: Soft. Decreased bowel sounds. GENITALIA: Deferred. RECTAL: Deferred. MUSCULOSKELETAL: No joint deformities. EXTREMITIES: Reveal trace lower extremity edema. NEUROLOGIC: Neurologically, there is no change. LABORATORY DATA: As far as her laboratories are concerned, her white count is 7, hemoglobin is 13.2, hematocrit 40.3 with platelets of 297,000. Her sodium is 141, potassium 3.9, chloride 104, CO2 of 28 with a BUN of 11, creatinine of 0.7 and a glucose of 131. IMPRESSION: As far as my impression, this patient has a right parietal hemorrhage/stroke and history of hypertension, diabetes and hyperlipidemia. She has a left-sided upper and lower extremity weakness. PLAN: As far as our plan, we will continue to follow Neurology's recommendations. The patient is on Keppra, nicardipine, as well as Protonix. We will continue to follow closely and treat aggressively along with the other consultants and the primary care doctor. Len Osborne MD
[2018-10-23] MEDS ORDERED: Dexamethasone 10 MG in Sodium Chloride 0.9% 50 ML IV ONE (19:00)
[2018-10-23] MEDS ORDERED: Magnesium Sulfate 1 gm in D5W 1 GM/100 ML BAG IVPB ONE (19:00)
[2018-10-23] MEDS ORDERED: Valproate 500 MG in Sodium Chloride 0.9% 100 ML IVPB ONE (19:02)
--- NOTE | 2018-10-23 19:15 | PN ---
DATE: 10/23/2018 SUBJECTIVE: The patient denies any headache or dizziness. PHYSICAL EXAMINATION VITAL SIGNS: Blood pressure 189/97, heart rate 63, respirations 22, temperature 98.5. HEENT: Normocephalic. CHEST: Clear. HEART: S1 and S2 regular. EXTREMITIES: No edema. LABORATORY DATA: Today's hemoglobin, hematocrit, white count and platelet count are within normal limit. Today's SMA-7 is within normal limit except for glucose of 151. Today's MRI report, a large parenchymal hematoma in the right parietal and posterior frontal region with mild surrounding mass effect. ASSESSMENT: 1. Hemorrhagic right frontoparietal infarct versus hemorrhage within a cerebral mass. 2. Uncontrolled hypertension. 3. Hyperlipidemia. RECOMMENDATIONS: Continue current Cardene infusion. Continue IV Keppra. We will administer Lasix 40 mg IV push single dose today. Dane Marion MD
[2018-10-24 06:34] LABS: GRAN # 6.25 (1.4-6.5); GRAN % 85.5 % (50.0-68.0); LYMPH # 0.9 (1.2-3.4); LYMPH % 12.2 % (22.0-35.0); MEAN CELL VOLUME 86.5 fl (80.0-105.0); MEAN CORPUSCULAR HGB CONC 32.3 g/dl (31.0-37.0); MEAN PLATELET VOLUME 8.8 fl (7.0-11.0); MONO # 0.2 (0.1-0.6); MONO % 2.3 % (1.0-6.0); RBC 4.29 10^6/uL (3.5-6.1); RED CELL DISTRIBUTION WIDTH 13.2 % (11.5-14.5); WHITE BLOOD COUNT 7.3 10^3/uL (4.5-11.0)
[2018-10-24 06:59] LABS: ALBUMIN 3.9 g/dL (3.0-4.8); ALT/SGPT 35 U/L (7-56); AST/SGOT 36 U/L (14-36); BLOOD UREA NITROGEN 22 mg/dL (7-21); CALCIUM 8.8 mg/dL (8.4-10.5); GFR NON-AFRICAN AMERICAN > 60
[2018-10-24] MEDS ORDERED: Iohexol 300 100 ML IJ ONE (09:06)
[2018-10-24] MEDS: levETIRAcetam 500mg IVPB 500 MG/100 ML BAG IVPB SCH ×2 (09:33→22:57)
--- NOTE | 2018-10-24 12:19 | CP.PCM.PN ---
Subjective - Date & Time of Evaluation Date of Evaluation: 10/24/18 Time of Evaluation: 11:00 - Subjective Subjective: MIss saleem is awake, and following commands, with neglect of left side, and left sided plegia. MRI reviewed, appears to be a loculated lesion that is quite suspicious for a hemorrhagic metastasis. CT abdomen pelvis pending. ROS: none. On exam: Aaox1. PERRL. LEFT SIDED NEGLECT. Cn 2-12 normal. Left sided complete plegia. sensory exam not accurate. Can name and repeat. +2 dtr ul and ll bl. Toes downgoing. No clonus. ' Objective - Vital Signs/Intake and Output Vital Signs (last 24 hours): Temp Pulse Resp BP Pulse Ox 98.6 F 65 16 127/74 96 10/23/18 20:00 10/24/18 06:00 10/24/18 06:00 10/24/18 06:00 10/24/18 06:00 Intake and Output: 10/24/18 10/24/18 06:59 18:59 Intake Total 750 Output Total 600 Balance 150 - Medications Medications: Current Medications Nicardipine HCl (Cardene Iv Premix) 20 mg in 200 mls @ 50 mls/hr IV .Q4H PRN; Protocol PRN Reason: TITRATE PER MD ORDER Last Titration: 10/22/18 10:48 Dose: 5 mg/hr, 50 mls/hr Levetiracetam (Keppra 500mg Ivpb) 500 mg in 100 mls @ 400 mls/hr IVPB Q12 [facility] Last Admin: 10/24/18 09:33 Dose: 400 mls/hr Pantoprazole Sodium (Protonix Inj) 40 mg IVP DAILY [facility] Last Admin: 10/24/18 09:31 Dose: 40 mg - Labs Labs: 10/24/18 05:30 10/24/18 05:30 PT 11.3 SECONDS (9.4-12.5) 10/20/18 19:18 INR 0.99 10/20/18 19:18 APTT 28.8 Seconds (25.1-36.5) 10/20/18 19:18 Assessment and Plan - Assessment and Plan (Free Text) Assessment: 63 yr old woman with hemorrhagic lesion in right parietal cortex, large with no midline shift, now with unchanged neurological exam. CT chest abdomen pelvis pending to evaluate for primary. Plan: 1. Continue current care 2. Speech and physical therapy Thank you Dr. Reyes
--- NOTE | 2018-10-24 14:28 | CP.PCM.PN ---
<Thaddeus Macedo - Last Filed: 10/24/18 14:18> Subjective - Date & Time of Evaluation Date of Evaluation: 10/24/18 Time of Evaluation: 09:25 - Subjective Subjective: SHERLY Gasca Progress Note Patient seen and examined at bedside this morning. No acute events overnight. Offers no complaints today. Continues to have left sided weakness. CTAP pending. Objective - Vital Signs/Intake and Output Vital Signs (last 24 hours): Temp Pulse Resp BP Pulse Ox 98.6 F 68 16 159/100 H 97 10/23/18 20:00 10/24/18 12:00 10/24/18 12:00 10/24/18 12:00 10/24/18 12:00 Intake and Output: 10/24/18 10/24/18 06:59 18:59 Intake Total 750 Output Total 600 Balance 150 - Medications Medications: Current Medications Furosemide (Lasix) 40 mg IVP DAILY [facility] Nicardipine HCl (Cardene Iv Premix) 20 mg in 200 mls @ 50 mls/hr IV .Q4H PRN; Protocol PRN Reason: TITRATE PER MD ORDER Last Titration: 10/22/18 10:48 Dose: 5 mg/hr, 50 mls/hr Levetiracetam (Keppra 500mg Ivpb) 500 mg in 100 mls @ 400 mls/hr IVPB Q12 [facility] Last Admin: 10/24/18 09:33 Dose: 400 mls/hr Pantoprazole Sodium (Protonix Inj) 40 mg IVP DAILY [facility] Last Admin: 10/24/18 09:31 Dose: 40 mg Potassium Chloride (K-Dur 20 Meq Er Tab) 20 meq PO BRK [facility] - Labs Labs: 10/24/18 05:30 10/24/18 05:30 PT 11.3 SECONDS (9.4-12.5) 10/20/18 19:18 INR 0.99 10/20/18 19:18 APTT 28.8 Seconds (25.1-36.5) 10/20/18 19:18 - Additional Findings Additional findings: - Constitutional Appears: No Acute Distress - Head Exam Head Exam: ATRAUMATIC, NORMAL INSPECTION - Eye Exam Eye Exam: EOMI Pupil Exam: PERRL - ENT Exam ENT Exam: Mucous Membranes Moist - Neck Exam Neck Exam: Normal Inspection - Respiratory Exam Respiratory Exam: Clear to Ausculation Bilateral, NORMAL BREATHING PATTERN. absent: Accessory Muscle Use, Wheezes, Respiratory Distress - Cardiovascular Exam Cardiovascular Exam: REGULAR RHYTHM, +S1, +S2 - GI/Abdominal Exam GI & Abdominal Exam: Soft, Normal Bowel Sounds. absent: Firm, Guarding, Rigid - Extremities Exam Extremities Exam: Normal Inspection. absent: Calf Tenderness, Tenderness - Back Exam Back Exam: NORMAL INSPECTION - Neurological Exam Neurological Exam: Alert Additional comments: Muscle strength in left upper and lower extremities is 1/5. Right upper and lower extremities strength is 5/5. Not alert to time. Alert to person and place. - Skin Skin Exam: Normal Color, Warm Assessment and Plan - Assessment and Plan (Free Text) Assessment: 63 y/o female with PMH of HTN, DM, HLD, memory loss presents to ED with left sided weakness and slight speech impairment s/p mechanical fall. Patient is admitted to ICU for hemorrhagic stroke. Concern for malignancy. Plan: Acute hemorrhagic stroke -continues to have left sided weakness/neglect -MRI shows large parenchymal hematoma in right parietal and posterior frontal region with mild surrounding mass effect -suspicious for malignancy, CTAP pending -10/20 CT head showed right intraparynchmal parietal bleed, vasogenic edema and subrachnoid hemorrhage -10/[address] head today shows no interval change -10/20 CTA head and neck shows no aneurysm or occlusion -Neurology on consult -per neurosurgery, no intervention at this time -cardiology on consult, trops downtrending. -echo shows nomal LV size/wall thickness/function -aspiration/seizure/vital/neuro check -PT/OT -Head above bed 45 degrees -no AC for now -keppra 500mg BID Hypokalemia - resolved -repleted, f/u AM labs Hx of HTN -goal of SBP 120-150 -hold home meds for now Hx of DM -insulin low sliding scale -A1c 6.6% Leukocytosis - resolved -blood culture negative 3 days PPX/Diet -protonix, SCD -GI/hepatic diet Patient seen and case discussed with attending, Dr. Delgadillo <Gildardo Delgadillo - Last Filed: 10/24/18 18:05> Objective - Vital Signs/Intake and Output Vital Signs (last 24 hours): Temp Pulse Resp BP Pulse Ox 98.6 F 68 16 131/78 97 10/23/18 20:00 10/24/18 12:00 10/24/18 12:00 10/24/18 15:35 10/24/18 12:00 Intake and Output: 10/24/18 10/24/18 06:59 18:59 Intake Total 750 Output Total 600 Balance 150 - Medications Medications: Current Medications Furosemide (Lasix) 40 mg IVP DAILY [facility] Last Admin: 10/24/18 15:35 Dose: 40 mg Nicardipine HCl (Cardene Iv Premix) 20 mg in 200 mls @ 50 mls/hr IV .Q4H PRN; Protocol PRN Reason: TITRATE PER MD ORDER Last Titration: 10/22/18 10:48 Dose: 5 mg/hr, 50 mls/hr Levetiracetam (Keppra 500mg Ivpb) 500 mg in 100 mls @ 400 mls/hr IVPB Q12 [facility] Last Admin: 10/24/18 09:33 Dose: 400 mls/hr Pantoprazole Sodium (Protonix Inj) 40 mg IVP DAILY [facility] Last Admin: 10/24/18 09:31 Dose: 40 mg Potassium Chloride (K-Dur 20 Meq Er Tab) 20 meq PO BRK [facility] Last Admin: 10/24/18 15:34 Dose: 20 meq - Labs Labs: 10/24/18 05:30 10/24/18 05:30 PT 11.3 SECONDS (9.4-12.5) 10/20/18 19:18 INR 0.99 10/20/18 19:18 APTT 28.8 Seconds (25.1-36.5) 10/20/18 19:18 Attending/Attestation - Attestation I have personally seen and examined this patient.: Yes I have fully participated in the care of the patient.: Yes I have reviewed all pertinent clinical information, including history, physical exam and plan: Yes Notes (Text): 10/24/18 18:03 63 year old female with past medical history of hypertension, diabetes, and dyslipidemia who presented with left sided weakness s/p mechanical fall at home. She was found to have hemorrhagic stroke on CT scan. Neurosurgery was notif ied; recommended conservative management without acute surgical intervention. Neurology is following as wel. MRI brain showed large parenchymal hematoma in the right parietal and posterior frontal region with mild surrounding mass effect. Today will obtain CT chest/abdomen/pelvis for further evaluation to look for underlying malignancy. PT recommended acute rehab. Continue with frequent neurochecks. Patient was initially started on cardene drip and also on keppra now. Patient also had elevated troponins possibly secondary to above. Cardiology is following. Echocardiogram was reviewed. Gildardo Delgadillo MD Hospitalist.
--- NOTE | 2018-10-24 15:33 | CT ---
Date of service: 10/24/2018 PROCEDURE: CT Chest, Abdomen and Pelvis with intravenous contrast HISTORY: r/o malignancy COMPARISON: None available. TECHNIQUE: IV dose administered: Radiation dose: Total exam DLP = 533.48 mGy-cm. This CT exam was performed using one or more of the following dose reduction techniques: Automated exposure control, adjustment of the mA and/or kV according to patient size, and/or use of iterative reconstruction technique. FINDINGS: CT CHEST WITH CONTRAST: LUNGS: Small right subpleural infiltrate. MEDIASTINUM: Unremarkable. Normal caliber aorta and pulmonary arterial trunk. No aortic dissection. Normal size heart. LYMPH NODES: Unremarkable. PLEURA: Unremarkable. No pneumothorax. No pleural fluid. BONES: Unremarkable. OTHER FINDINGS: None. CT ABDOMEN AND PELVIS: LIVER: Unremarkable. No gross lesion or ductal dilatation. GALLBLADDER AND BILE DUCTS: Unremarkable. PANCREAS: Unremarkable. No gross lesion or ductal dilatation. SPLEEN: Unremarkable. ADRENALS: Unremarkable. No mass. KIDNEYS AND URETERS: Unremarkable. No hydronephrosis. No solid mass. VASCULATURE: No aortic atherosclerotic calcification or mural plaque present. Unremarkable. No aortic aneurysm. BOWEL: Unremarkable. No obstruction. No gross mural thickening. APPENDIX: Normal appendix. PERITONEUM: Unremarkable. No free fluid. No free air. LYMPH NODES: Unremarkable. No enlarged lymph nodes. BLADDER: Unremarkable. REPRODUCTIVE: Unremarkable. BONES: No acute fracture. OTHER FINDINGS: None. IMPRESSION: Small right subpleural infiltrate.
[2018-10-24] MEDS: Potassium Chloride 20 mEq ER Tab PO SCH (15:34)
--- NOTE | 2018-10-24 18:49 | PN ---
DATE: 10/24/2018 SUBJECTIVE: The patient denies headache or blurry vision. PHYSICAL EXAMINATION VITAL SIGNS: Blood pressure 159/ , heart rate 69, temperature 98.6, respirations 20. HEENT: Normocephalic. CHEST: Clear. HEART: S1 and S2 regular. EXTREMITIES: No edema. LABORATORY DATA: Today's hemoglobin and hematocrit, white count and platelet count are within normal limits. Today's SMA-7 is within normal limits except for glucose 142 and BUN Of 22. Official report of brain MRI done yesterday; a large parenchymal hematoma in the right parietal and posterior frontal region with mild surrounding mass effect. ASSESSMENT: 1. Right frontoparietal hemorrhage. 2. Uncontrolled hypertension. 3. Hyperlipidemia. RECOMMENDATIONS: Continue current Cardene infusion and Protonix 40 mg intravenously daily. Start Lasix 40 mg IV push daily with K-Dur 20 mEq orally daily. Dane Marion MD
[2018-10-25 06:57] LABS: BASO # 0.01 K/mm3 (0.0-2.0); BASO % 0.1 % (0.0-3.0); EOS % 0.1 % (1.5-5.0); GRAN # 6.14 (1.4-6.5); GRAN % 69.4 % (50.0-68.0); HEMOGLOBIN 12.6 g/dL (12.0-16.0); LYMPH # 2.1 (1.2-3.4); LYMPH % 23.4 % (22.0-35.0); MEAN CELL VOLUME 88.1 fl (80.0-105.0); MEAN CORPUSCULAR HEMOGLOBIN 28.3 pg (25.0-35.0); MEAN CORPUSCULAR HGB CONC 32.1 g/dl (31.0-37.0); MEAN PLATELET VOLUME 8.9 fl (7.0-11.0); MONO # 0.6 (0.1-0.6); RBC 4.46 10^6/uL (3.5-6.1); RED CELL DISTRIBUTION WIDTH 13.3 % (11.5-14.5); WHITE BLOOD COUNT 8.9 10^3/uL (4.5-11.0)
[2018-10-25 07:32] LABS: ALT/SGPT 34 U/L (7-56); AST/SGOT 48 U/L (14-36); BLOOD UREA NITROGEN 26 mg/dL (7-21); CALCIUM 9.2 mg/dL (8.4-10.5); GFR NON-AFRICAN AMERICAN > 60
[2018-10-25] MEDS: levETIRAcetam 500mg IVPB 500 MG/100 ML BAG IVPB SCH ×2 (09:54→21:54)
[2018-10-25] MEDS: Potassium Chloride 20 mEq ER Tab PO SCH (09:54)
[2018-10-25] MEDS: Ergocalciferol 50,000 Intl Units Cap PO SCH (13:26)
[2018-10-25] MEDS: Levalbuterol 0.63 MG/3 ML Inhal Soln UD IH SCH ×2 (13:41→20:23)
--- NOTE | 2018-10-25 21:54 | PN ---
DATE: 10/25/2018 LOCATION: CCU, bed 6. SUBJECTIVE: The patient's is at bedside. The patient is seen lying in the bed. The patient is arousable, responsive, alert. The patient was admitted on 10/20/2018 while I was away until today. The patient is now transferred from hospitalist service to under my care. The patient is seen lying in the bed. PHYSICAL EXAMINATION: VITAL SIGNS: T-max in the last 24 hours 99.4. Telemetry shows sinus rhythm to sinus bradycardia. Blood pressure in the last 24 hours averaging around 110s to 120 systolic, diastolic in 70s and 80s. O2 sat is 96%. Intake/output noted. GENERAL: The patient is seen lying in the bed. The patient is arousable, awake, responsive. HEENT: Head examination normocephalic, atraumatic. HEENT examination shows pinkish conjunctivae. Dry oral mucosa. No neck rigidity. CHEST: Examination symmetrical. LUNGS: Examination shows occasional rhonchi upper lung ryder anteriorly. CARDIOVASCULAR: S1, S2. Questionable soft systolic murmur, left sternal border, right second intercostal space, left second intercostal space. ABDOMEN: Soft. Positive bowel sound. No palpable hepatosplenomegaly. GENITALIA: Female. EXTREMITIES: No pitting edema. No calf numbness. No Homans sign. NEUROLOGIC: The patient is arousable, awake, responsive. Positive left-sided hemiplegia noted. Weakness noted. MUSCULOSKELETAL: Examination shows a body mass index of 24. Cranial nerves II through XII limited. Gait examination not tested. DIAGNOSTICS: 10/25/2018: WBC 8.9, hemoglobin and hematocrit 12.6 and 39.3, platelet 307. Sodium 141, potassium 4, chloride 99, CO2 of 35, anion gap 11, BUN 26, creatinine 0.9, GFR greater than 60, glucose 125, calcium 9.2, AST 48. Rest of the LFTs are normal. Microbiology, blood cultures are negative. Blood type is A+. The patient's CT abdomen, pelvis, MRI of the brain, CT angio, CT head, chest x-ray reviewed. EKG reviewed. Since admission, all lab data from hospitalization reviewed. The patient seen by Neurology, Cardiology, hospitalist, and Neurosurgery. IMPRESSION: 1. Status post fall. 2. Right frontoparietal parenchymal bleed and hematoma. 3. Right frontoparietal parenchymal intracranial bleed with surrounding vasogenic edema and trace subarachnoid hemorrhage and possible subdural hemorrhage around the right interhemispheric falx with mass effect on the midline without shift. 4. Status post uncontrolled hypertension. 5. Sinus bradycardia. 6. Left hemiplegia. 7. Transient leukocytosis with granulocytosis. 8. Elevated erythrocyte sedimentation rate of 88. 9. Prediabetes with hemoglobin A1c of 6.6. 10. Transaminitis. 11. Elevated troponin, etiology unclear. 12. Hypercholesterolemia with elevated LDL. 13. Transient hypokalemia. 14. Small right subpleural pneumonia versus infiltrate. 15. Large right posterior frontoparietal deep white matter intracranial hemorrhage with vasogenic edema with mass effect with overlying sulci effacement and inferior and medial compressive effect on the superior margin of the right lateral ventricle with subarachnoid hemorrhage within the overlying sulci of the vertex. 16. Minimal chronic periventricular white matter ischemic disease of the brain. 17. Cerebral cortical volume loss. 18. Bilateral cataract surgery. 19. Right frontoparietal intracranial bleed with vasogenic edema. 20. Left hemiplegia. 21. Sinus bradycardia. 22. Questionable coronary ischemic changes as per echocardiogram with left ventricular ejection fraction of 69%. 23. Trace tricuspid, trace pulmonic regurgitation. 24. Status post uncontrolled hypertension. 25. Hyperlipidemia. 26. Status post mechanical fall. 27. History of hypertension, history of hyperlipidemia. 28. History of dementia. 29. History of diabetes, prediabetes. 30. History of insomnia. 31. History of depression. 32. History of hypovitaminosis D. 33. Acute right frontoparietal hemorrhagic stroke with left hemiplegia. 34. History of diabetes mellitus. 35. Gait dysfunction with left hemiplegia. 36. Oropharyngeal dysphagia. 37. Hypokalemia. PLAN: At this time, the patient is currently being followed by Neurology, Neurosurgery, Cardiology. The patient is currently on Aricept 5 mg at bedtime, Colace 100 mg three times a day, Drisdol 50,000 weekly, K-Dur 20 mEq daily, Keppra 500 mg every 12 hours, Lasix 40 IV daily as per Cardiology, Lipitor 40 mg daily. The patient is on Cardene drip 20 mg at 5 mg per hour, Protonix 40 IV daily, Tylenol p.o. suppository every 6 hours p.r.n., Xopenex nebulizer 0.63 mg every 6 hours, Zofran 4 mg IV every 4 hours, oxygen nasal cannula, incentive spirometry, chest PT, head of the bed at 30 degrees, BRIAN stockings, SCDs. The patient has been ordered physical therapy, occupational therapy, speech therapy. SCDs, BRIAN stockings ordered. At present, the patient's condition, diagnosis, overall guarded to poor prognosis discussed and explained to the patient's in layman's language. All questions concerned answered. I have explained to the patient's very clearly about the patient's overall guarded to poor prognosis and I have advised the patient to contact Cart[facility] regarding discharge planning options. I have also explained to the patient that the patient most likely will require 24-hour care and supervision upon discharge. Time spent in the management more than 35 minutes. Dictated and electronically signed, not read. Krzysztof Koehler MD
[2018-10-26] MEDS: Levalbuterol 0.63 MG/3 ML Inhal Soln UD IH SCH ×4 (01:34→20:14)
[2018-10-26] MEDS: Pantoprazole 40 mg Susp UD PO SCH (08:15)
[2018-10-26] MEDS: Potassium Chloride 20 mEq ER Tab PO SCH (08:15)
[2018-10-26] MEDS: levETIRAcetam 500mg IVPB 500 MG/100 ML BAG IVPB SCH ×2 (09:50→22:41)
--- NOTE | 2018-10-26 11:17 | PN ---
DATE: 10/26/2018 LOCATION: The patient is in CCU, bed 6. SUBJECTIVE: The patient is seen lying in the bed. Overnight nurse's notes were reviewed. The patient had no adverse events documented. The patient is seen in the bed. The patient is able to communicate. The speech appears to be clear. A 14-system review was done, pertinent positive-negative noted as positive left-sided weakness and hemiplegia. PHYSICAL EXAMINATION: VITAL SIGNS: T-max 97.6, telemetry shows normal sinus rhythm, heart rate 69 to 82, blood pressure 147/87, respirations 19, O2 sat 95%. HEENT: Head: Normocephalic, atraumatic. HEENT examination shows pinkish conjunctivae. Anicteric sclerae, dry oral mucosa. No neck rigidity. Positive left-sided neglect noted. CHEST: Kyphosis. LUNGS: Shows questionable audible rhonchi, upper lung ryder anteriorly. CARDIOVASCULAR: S1, S2, regular rhythm. Questionable systolic murmur at left sternal border, right second intercostal space, left second intercostal space. ABDOMEN: Soft. Positive bowel sound. No palpable hepatosplenomegaly. No organomegaly. GENITALIA: Female. RECTAL: Examination is deferred. EXTREMITIES: Shows no pitting edema, no calf tenderness, no Homans sign. Positive left upper and lower extremity weakness and hemiplegia noted. Gait examination is not tested. NEUROLOGIC: Examination is limited. The patient's speech appears to be intact. The patient is able to answer questions. DIAGNOSTICS: None from today. IMPRESSION: 1. Acute right frontoparietal hemorrhagic infarct and stroke with left hemiplegia with left hemineglect. 2. Oropharyngeal dysphagia. 3. Status post uncontrolled hypertension. 4. Transient leukocytosis. 5. History of diabetes, prediabetes 6. Hyperlipidemia. 7. Hypovitaminosis D. 8. History of dementia. 9. Acute hemorrhagic right frontoparietal infarct with vasogenic edema and mild midline shift without herniation. 10. Dementia. 11. Deconditioning. 12. Gait dysfunction. 13. Left hemiplegia. 14. Sinus bradycardia. 15. Mild oropharyngeal dysphagia (resolving). 16. Hypertension. PLAN: At this time, the patient is to be continued. The patient seen by speech therapist. Recommend diet to be advanced to advance bite sized with thin liquid which has been ordered. CONSULTATION: Neurology, Cardiology. The patient has been ordered physical therapy, occupational therapy, ambulation therapy, gait training, speech therapy, swallowing evaluation and training. The patient had been ordered GI and nonpharmacological DVT prophylaxis. The patient has been ordered out of bed to chair, SCDs, BRIAN stockings ordered. We are awaiting for neuro clearance for transfer to out of ICU. The patient will be continued on all the medications as per the MAR. The patient's overall prognosis is guarded to poor. The patient's spouse has been explained about the patient's condition, diagnosis, overall guarded to poor prognosis and possible need for 24-hour care and supervision upon discharge. The patient's spouse has been advised to contact Change Control Analyst for discharge planning and discharge options. All the above was discussed and explained to the patient in layman's language. All questions concerned answered, which he acknowledged understand. TIME SPENT IN THE MANAGEMENT: 35 minutes and more. Dictated and electronically signed, not read. Krzysztof Koehler MD
--- NOTE | 2018-10-26 12:02 | CP.PCM.PN ---
Subjective - Date & Time of Evaluation Date of Evaluation: 10/26/18 Time of Evaluation: 11:53 - Subjective Subjective: Medicine Progress Note for Dr. Koehler Patient seen and examined at bedside. No acute overnight events. Patient unable to move left side of her body and exhibits neglect to that side. Patient denies CP, SOB, n/v/d, abdominal pain, fever, chills, KANG, or dizziness. Objective - Vital Signs/Intake and Output Vital Signs (last 24 hours): Temp Pulse Resp BP Pulse Ox 98.6 F 66 21 133/86 100 10/26/18 05:00 10/26/18 08:00 10/26/18 08:00 10/26/18 09:50 10/26/18 08:00 Intake and Output: 10/26/18 10/26/18 06:59 18:59 Intake Total 100 Output Total 250 Balance -150 - Medications Medications: Current Medications Acetaminophen (Tylenol 325mg Tab) 650 mg PO Q6 PRN PRN Reason: TEMP>=99.5F Acetaminophen (Tylenol 650 Mg Supp) 650 mg RC Q6H PRN PRN Reason: TEMP>=99.5F Atorvastatin Calcium (Lipitor) 40 mg PO DIN [facility] Last Admin: 10/25/18 17:21 Dose: 40 mg Docusate Sodium (Colace) 100 mg PO TID [facility] Last Admin: 10/26/18 09:52 Dose: Not Given Donepezil HCl (Aricept) 5 mg PO HS [facility] Last Admin: 10/25/18 21:53 Dose: 5 mg Ergocalciferol (Drisdol 50,000 Intl Units Cap) 1 cap PO Q7D [facility] Last Admin: 10/25/18 13:26 Dose: 1 cap Furosemide (Lasix) 40 mg IVP DAILY [facility] Last Admin: 10/26/18 09:50 Dose: 40 mg Nicardipine HCl (Cardene Iv Premix) 20 mg in 200 mls @ 50 mls/hr IV .Q4H PRN; Protocol PRN Reason: TITRATE PER MD ORDER Last Titration: 10/22/18 10:48 Dose: 5 mg/hr, 50 mls/hr Levetiracetam (Keppra 500mg Ivpb) 500 mg in 100 mls @ 400 mls/hr IVPB Q12 [facility] Last Admin: 10/26/18 09:50 Dose: 400 mls/hr Levalbuterol HCl (Xopenex) 0.63 mg IH [id number] [facility] Last Admin: 10/26/18 07:56 Dose: 0.63 mg Ondansetron HCl (Zofran Inj) 4 mg IVP Q4H PRN PRN Reason: Nausea/Vomiting Pantoprazole Sodium (Protonix Susp) 40 mg PO ACB [facility] Last Admin: 10/26/18 08:15 Dose: 40 mg Potassium Chloride (K-Dur 20 Meq Er Tab) 20 meq PO BRK [facility] Last Admin: 10/26/18 08:15 Dose: 20 meq - Labs Labs: 10/25/18 06:20 10/25/18 06:20 PT 11.3 SECONDS (9.4-12.5) 10/20/18 19:18 INR 0.99 10/20/18 19:18 APTT 28.8 Seconds (25.1-36.5) 10/20/18 19:18 - Constitutional Appears: No Acute Distress - Head Exam Head Exam: NORMAL INSPECTION - Eye Exam Eye Exam: Normal appearance - ENT Exam ENT Exam: Mucous Membranes Moist - Neck Exam Neck Exam: Normal Inspection - Respiratory Exam Respiratory Exam: Clear to Ausculation Bilateral. absent: Rales, Rhonchi, Wheezes - Cardiovascular Exam Cardiovascular Exam: Tachycardia. absent: Gallop, Rubs, Murmur - GI/Abdominal Exam GI & Abdominal Exam: Soft. absent: Distended, Guarding, Tenderness, Rebound - Extremities Exam Extremities Exam: Normal Inspection - Back Exam Back Exam: NORMAL INSPECTION - Neurological Exam Neurological Exam: Alert, Awake. absent: Oriented x3 (x2, not oriented to time) Additional comments: Strength LUE/LLE 1/5, RUE/RLE 5/5 Sensation intact Left hemineglect - Psychiatric Exam Psychiatric exam: Normal Affect - Skin Skin Exam: Normal Color Assessment and Plan - Assessment and Plan (Free Text) Assessment: 63 y/o female with PMH of HTN, DM, HLD, memory loss presents to ED with left sided weakness and slight speech impairment s/p mechanical fall and was admitted for intracranial hemorrhage. Patient to be transferred to telemetry. Plan: Acute hemorrhagic stroke - MRI shows large parenchymal hematoma in right parietal and posterior frontal region with mild surrounding mass effect - 10/20 CT head showed right intraparynchmal parietal bleed, vasogenic edema and subrachnoid hemorrhage - 10/[address] head today shows no interval change - 10/20 CTA head and neck shows no aneurysm or occlusion - No surgical intervention per neurosurgery - aspiration/seizure/vital/neuro check - PT/OT - recommending acute care - Head above bed 45 degrees - keppra 500mg BID - Off nicardipine gtt - Neurology consulted Elevated cardiac enzymes - Troponin 0.21, 0.16. 0.14 - Likely related to ICH - echo shows nomal LV size/wall thickness/function - Cont lasix - Cardiology consulted Hypokalemia - resolved - Cont to monitor and replete as needed Hx of HTN - goal of SBP 120-150 - hold home meds for now Hx of DM - ISS - Accuchecks ACHS - A1c 6.6% Leukocytosis - resolved - blood culture negative 3 days PPX/Diet - protonix, SCD - GI/hepatic diet Patient seen and case discussed with attending, Dr. Koehler. Dwayne Ozuna, DO PGY2
--- NOTE | 2018-10-26 12:46 | CP.PCM.PN ---
<Moshe Chase - Last Filed: 10/26/18 15:44> Subjective - Date & Time of Evaluation Date of Evaluation: 10/26/18 Time of Evaluation: 08:00 - Subjective Subjective: Neurology Consult note for Dr. Eric Chase PGY2 Patient seen and examined at bedside in no acute distress. Patient continues to experience left sided hemineglect. States she is 53 years old, currently at [facility] however states she is currently in the [facility]. Denies headaches or headaches. Objective - Vital Signs/Intake and Output Vital Signs (last 24 hours): Temp Pulse Resp BP Pulse Ox 98.6 F 83 20 140/80 99 10/26/18 05:00 10/26/18 10:00 10/26/18 10:00 10/26/18 10:00 10/26/18 10:00 Intake and Output: 10/26/18 10/26/18 06:59 18:59 Intake Total 100 Output Total 250 Balance -150 - Medications Medications: Current Medications Acetaminophen (Tylenol 325mg Tab) 650 mg PO Q6 PRN PRN Reason: TEMP>=99.5F Acetaminophen (Tylenol 650 Mg Supp) 650 mg RC Q6H PRN PRN Reason: TEMP>=99.5F Atorvastatin Calcium (Lipitor) 40 mg PO DIN [facility] Last Admin: 10/25/18 17:21 Dose: 40 mg Docusate Sodium (Colace) 100 mg PO TID [facility] Last Admin: 10/26/18 09:52 Dose: Not Given Donepezil HCl (Aricept) 5 mg PO HS [facility] Last Admin: 10/25/18 21:53 Dose: 5 mg Ergocalciferol (Drisdol 50,000 Intl Units Cap) 1 cap PO Q7D [facility] Last Admin: 10/25/18 13:26 Dose: 1 cap Furosemide (Lasix) 40 mg IVP DAILY [facility] Last Admin: 10/26/18 09:50 Dose: 40 mg Nicardipine HCl (Cardene Iv Premix) 20 mg in 200 mls @ 50 mls/hr IV .Q4H PRN; Protocol PRN Reason: TITRATE PER MD ORDER Last Titration: 10/22/18 10:48 Dose: 5 mg/hr, 50 mls/hr Levetiracetam (Keppra 500mg Ivpb) 500 mg in 100 mls @ 400 mls/hr IVPB Q12 [facility] Last Admin: 10/26/18 09:50 Dose: 400 mls/hr Levalbuterol HCl (Xopenex) 0.63 mg IH [id number] [facility] Last Admin: 10/26/18 07:56 Dose: 0.63 mg Ondansetron HCl (Zofran Inj) 4 mg IVP Q4H PRN PRN Reason: Nausea/Vomiting Pantoprazole Sodium (Protonix Susp) 40 mg PO ACB [facility] Last Admin: 10/26/18 08:15 Dose: 40 mg Potassium Chloride (K-Dur 20 Meq Er Tab) 20 meq PO BRK [facility] Last Admin: 10/26/18 08:15 Dose: 20 meq - Labs Labs: 10/25/18 06:20 10/25/18 06:20 PT 11.3 SECONDS (9.4-12.5) 10/20/18 19:18 INR 0.99 10/20/18 19:18 APTT 28.8 Seconds (25.1-36.5) 10/20/18 19:18 - Constitutional Appears: Non-toxic, No Acute Distress - Head Exam Head Exam: ATRAUMATIC, NORMAL INSPECTION, NORMOCEPHALIC - Eye Exam Eye Exam: absent: EOMI, Normal appearance (conjuncitivities of left eye) - ENT Exam ENT Exam: Mucous Membranes Moist - Neck Exam Neck Exam: absent: Full ROM (due to left sided neglect) - Respiratory Exam Respiratory Exam: Clear to Ausculation Bilateral, NORMAL BREATHING PATTERN - Cardiovascular Exam Cardiovascular Exam: REGULAR RHYTHM, +S1, +S2 - GI/Abdominal Exam GI & Abdominal Exam: Soft, Normal Bowel Sounds - Neurological Exam Neurological Exam: Awake Neuro motor strength exam: Left Upper Extremity: 5, Right Upper Extremity: 0, Left Lower Extremity: 4, Right Lower Extremity: 0 Additional comments: Left sided neglect and plegia present - Psychiatric Exam Psychiatric exam: Flat Affect - Skin Skin Exam: Normal Color, Warm Assessment and Plan - Assessment and Plan (Free Text) Assessment: 63 yr old woman with hemorrhagic lesion in right parietal cortex, large with no midline shift, now with unchanged neurological exam. Plan: -Continue with current medication regimen -Continue with PT and aggressive OT along with speech therapy -Patient's eyes dry from lack of eye drops, consider tx for keratoconjuncitivitis s <Nathan Suggs - Last Filed: 10/30/18 13:46> Objective - Vital Signs/Intake and Output Vital Signs (last 24 hours): Temp Pulse Resp BP Pulse Ox 98.1 F 72 19 139/79 98 10/30/18 12:00 10/30/18 12:00 10/30/18 12:00 10/30/18 12:00 10/30/18 05:59 Intake and Output: 10/30/18 10/30/18 06:59 18:59 Intake Total 1300 Output Total 150 Balance 1150 - Medications Medications: Current Medications Acetaminophen (Tylenol 325mg Tab) 650 mg PO Q6 PRN PRN Reason: TEMP>=99.5F Last Admin: 10/28/18 13:01 Dose: 650 mg Acetaminophen (Tylenol 650 Mg Supp) 650 mg RC Q6H PRN PRN Reason: TEMP>=99.5F Acetylcysteine (Acetylcysteine 20%) 4 ml IH [id number] [facility] Last Admin: 10/30/18 07:57 Dose: 4 ml Atorvastatin Calcium (Lipitor) 40 mg PO DIN [facility] Last Admin: 10/29/18 17:01 Dose: 40 mg Ciprofloxacin (Ciloxan 0.3% Oph Soln) 1 drop OU TID [facility] Last Admin: 10/30/18 09:35 Dose: 1 drop Docusate Sodium (Colace) 100 mg PO TID [facility] Last Admin: 10/30/18 09:35 Dose: 100 mg Donepezil HCl (Aricept) 10 mg PO HS [facility] Last Admin: 10/29/18 22:11 Dose: 10 mg Ergocalciferol (Drisdol 50,000 Intl Units Cap) 1 cap PO Q7D [facility] Last Admin: 10/25/18 13:26 Dose: 1 cap Levetiracetam (Keppra 500mg Ivpb) 500 mg in 100 mls @ 400 mls/hr IVPB Q12 [facility] Last Admin: 10/30/18 09:35 Dose: 400 mls/hr Sodium Chloride (Sodium Chloride 0.9%) 1,000 mls @ 100 mls/hr IV .Q10H [facility] Stop: 10/31/18 00:14 Last Admin: 10/30/18 06:46 Dose: 100 mls/hr Levalbuterol HCl (Xopenex) 0.63 mg IH [id number] [facility] Last Admin: 10/30/18 07:57 Dose: 0.63 mg Ondansetron HCl (Zofran Inj) 4 mg IVP Q4H PRN PRN Reason: Nausea/Vomiting Pantoprazole Sodium (Protonix Susp) 40 mg PO ACB [facility] Last Admin: 10/30/18 09:59 Dose: 40 mg - Labs Labs: 10/30/18 06:45 10/30/18 06:45 PT 11.3 SECONDS (9.4-12.5) 10/20/18 19:18 INR 0.99 10/20/18 19:18 APTT 28.8 Seconds (25.1-36.5) 10/20/18 19:18 Assessment and Plan - Assessment and Plan (Free Text) Assessment: I examined the patient independently and agree with the assessment and plan. Dr. suggs
[2018-10-27] MEDS: Levalbuterol 0.63 MG/3 ML Inhal Soln UD IH SCH ×4 (01:24→20:07)
[2018-10-27 07:18] LABS: ALBUMIN 4.5 g/dL (3.0-4.8); ALT/SGPT 48 U/L (7-56); AST/SGOT 63 U/L (14-36); BILIRUBIN,DIRECT 0.2 mg/dL (0.0-0.4); BLOOD UREA NITROGEN 46 mg/dL (7-21); CALCIUM 9.9 mg/dL (8.4-10.5); GFR NON-AFRICAN AMERICAN 56
[2018-10-27] MEDS: Potassium Chloride 20 mEq ER Tab PO SCH (08:18)
[2018-10-27] MEDS: Pantoprazole 40 mg Susp UD PO SCH (08:18)
[2018-10-27] MEDS: levETIRAcetam 500mg IVPB 500 MG/100 ML BAG IVPB SCH ×2 (10:37→22:19)
--- NOTE | 2018-10-27 14:40 | CP.PCM.PN ---
Subjective - Date & Time of Evaluation Date of Evaluation: 10/27/18 Time of Evaluation: 14:36 - Subjective Subjective: Medicine Progress Note for Dr. Koehler Patient seen and examined at bedside. No acute overnight events. Patient being evaluated for AR vs TRAVIS. Patient denies any acute changes. Objective - Vital Signs/Intake and Output Vital Signs (last 24 hours): Temp Pulse Resp BP Pulse Ox 98.7 F 96 H 19 115/83 97 10/27/18 12:00 10/27/18 12:00 10/27/18 12:00 10/27/18 12:00 10/27/18 06:00 - Medications Medications: Current Medications Acetaminophen (Tylenol 325mg Tab) 650 mg PO Q6 PRN PRN Reason: TEMP>=99.5F Acetaminophen (Tylenol 650 Mg Supp) 650 mg RC Q6H PRN PRN Reason: TEMP>=99.5F Atorvastatin Calcium (Lipitor) 40 mg PO DIN [facility] Last Admin: 10/26/18 17:09 Dose: 40 mg Docusate Sodium (Colace) 100 mg PO TID [facility] Last Admin: 10/27/18 14:07 Dose: Not Given Donepezil HCl (Aricept) 5 mg PO HS [facility] Last Admin: 10/26/18 22:42 Dose: 5 mg Ergocalciferol (Drisdol 50,000 Intl Units Cap) 1 cap PO Q7D [facility] Last Admin: 10/25/18 13:26 Dose: 1 cap Furosemide (Lasix) 40 mg IVP DAILY [facility] Last Admin: 10/27/18 10:37 Dose: 40 mg Nicardipine HCl (Cardene Iv Premix) 20 mg in 200 mls @ 50 mls/hr IV .Q4H PRN; Protocol PRN Reason: TITRATE PER MD ORDER Last Titration: 10/22/18 10:48 Dose: 5 mg/hr, 50 mls/hr Levetiracetam (Keppra 500mg Ivpb) 500 mg in 100 mls @ 400 mls/hr IVPB Q12 [facility] Last Admin: 10/27/18 10:37 Dose: 400 mls/hr Levalbuterol HCl (Xopenex) 0.63 mg IH [id number] [facility] Last Admin: 10/27/18 13:55 Dose: 0.63 mg Ondansetron HCl (Zofran Inj) 4 mg IVP Q4H PRN PRN Reason: Nausea/Vomiting Pantoprazole Sodium (Protonix Susp) 40 mg PO ACB [facility] Last Admin: 10/27/18 08:18 Dose: 40 mg Potassium Chloride (K-Dur 20 Meq Er Tab) 20 meq PO BRK [facility] Last Admin: 10/27/18 08:18 Dose: 20 meq - Labs Labs: 10/25/18 06:20 10/27/18 06:00 PT 11.3 SECONDS (9.4-12.5) 10/20/18 19:18 INR 0.99 10/20/18 19:18 APTT 28.8 Seconds (25.1-36.5) 10/20/18 19:18 - Constitutional Appears: No Acute Distress - Head Exam Head Exam: NORMAL INSPECTION - Eye Exam Eye Exam: Normal appearance Pupil Exam: NORMAL ACCOMODATION - ENT Exam ENT Exam: Normal Exam - Neck Exam Neck Exam: Normal Inspection - Respiratory Exam Respiratory Exam: Clear to Ausculation Bilateral, NORMAL BREATHING PATTERN. absent: Rales, Rhonchi, Wheezes - Cardiovascular Exam Cardiovascular Exam: RRR, +S1, +S2. absent: Gallop, Rubs, Murmur - GI/Abdominal Exam GI & Abdominal Exam: Soft. absent: Distended, Guarding, Rebound - Neurological Exam Neurological Exam: Alert, Awake, Oriented x3 Additional comments: Left sided neglect left arm/leg strength 1/5; right side 5/5 sensation intact - Psychiatric Exam Psychiatric exam: Normal Mood - Skin Skin Exam: Warm Assessment and Plan - Assessment and Plan (Free Text) Assessment: 63 y/o female with PMH of HTN, DM, HLD, memory loss presents to ED with left sided weakness and slight speech impairment s/p mechanical fall and was admitted for intracranial hemorrhage. Patient pending AR vs TRAVIS evaluation. Plan: Acute hemorrhagic stroke - MRI shows large parenchymal hematoma in right parietal and posterior frontal region with mild surrounding mass effect - 10/20 CT head showed right intraparynchmal parietal bleed, vasogenic edema and subrachnoid hemorrhage - 10/[address] head today shows no interval change - 10/20 CTA head and neck shows no aneurysm or occlusion - No surgical intervention per neurosurgery - aspiration/seizure/vital/neuro check - PT/OT - recommending acute care - Head above bed 45 degrees - keppra 500mg BID - Off nicardipine gtt - Neurology consulted Elevated cardiac enzymes - Likely related to ICH - echo shows nomal LV size/wall thickness/function - Cont lasix - Cardiology consulted Hypokalemia - resolved - Cont to monitor and replete as needed Hx of HTN - goal of SBP 120-150 - hold home meds for now Hx of DM - ISS - Accuchecks ACHS - A1c 6.6% Leukocytosis - resolved - blood culture negative 3 days PPX/Diet - protonix, SCD - GI/hepatic diet Patient seen and case discussed with attending, Dr. Koehler. Dwayne Ozuna, DO PGY2
--- NOTE | 2018-10-27 18:59 | PN ---
DATE: 10/27/2018 SUBJECTIVE: The patient is seen lying in the bed in room 263, bed 2. The patient's is assisting with the feeding. The patient is awake, responsive, alert, and answers questions. The patient does not appear to be any distress. Overnight nurse's notes were reviewed. OBJECTIVE: VITAL SIGNS: T-max 98 to 98.7. Telemetry shows sinus rhythm, heart rate 84, 79, and 96, blood pressure 115/83, 120/90, respirations 18-19, and O2 sat 97% on room air. HEENT: The patient's head examination; normocephalic and atraumatic. HEENT examination shows pink conjunctivae. Anicteric sclerae. No oropharyngeal lesion. NECK: No neck rigidity. CHEST: Kyphosis. LUNGS: Shows decreasing upper lung field rhonchi anteriorly. CARDIOVASCULAR: S1 and S2, regular rhythm. Questionable soft systolic murmur left sternal border, right second intercostal space, left second intercostal space. ABDOMEN: Soft. Positive bowel sound. No palpable hepatosplenomegaly. GENITALIA: Female. RECTAL: Deferred. EXTREMITIES: Shows no pitting edema. No calf tenderness. No Homans' sign. Positive left upper and lower extremity weakness noted. Gait examination not tested. The patient is lying in the bed. MUSCULOSKELETAL: Shows a body mass index of 19.9. LABORATORY DATA: Fingerstick blood sugar 148, 154, 143, 125, 138, and 119. Sodium 141, potassium 4.6, chloride 101, CO2 of 33, anion gap 12, BUN 46, creatinine 1, GFR greater than 60, glucose 154, hemoglobin A1c is 6.6, calcium 9.9, magnesium 2.5, AST 63, and total protein 8.9. Microbiology results are negative. Blood bank O+. IMPRESSION AND PLAN: 1. Status post fall. 2. Right frontoparietal parenchymal intracranial bleed with surrounding vasogenic edema and trace subarachnoid hemorrhage and possible subdural hemorrhage around the right interhemispheric falx with effect without midline shift. 3. Feeding dysfunction. 4. Oropharyngeal dysphagia (resolving). 5. Hypertension. 6. Type 2 diabetes mellitus. 7. Dementia. 8. Transient leukocytosis with granulocytosis and elevated erythrocyte sedimentation rate of 88. 9. Hyperglycemia. 10. Type 2 diabetes mellitus with hyperglycemia and hemoglobin A1c of 6.6. 11. Mild transaminitis. 12. Elevated troponin, etiology unclear. 13. Hypokalemia. 14. Deconditioning. 15. Left hemiplegia. 16. Gait dysfunction. 17. Right small subpleural infiltrate. 18. Left ventricular ejection fraction of 69%. 19. Trace tricuspid and trace pulmonic regurgitation. 20. Prerenal kidney injury. 21. Dementia. 22. Hypovitaminosis D. 23. Hyperlipidemia. Plan at this time, the patient's IV Lasix and potassium will be discontinued because of worsening prerenal azotemia and prerenal kidney injury. The patient's current medications Aricept 5 at bedtime, Colace 100 mg three times a day, Drisdol 50,000 units weekly, Keppra 500 mg IV every 12 hours, Lipitor 40 mg daily, Protonix suspension 40 mg daily, Tylenol p.o. suppository every 6 hours p.r.n., Xopenex nebulizer 0.63 mg every 6 hours, and Zofran 4 mg IV every 4 hours. Chest PT, incentive spirometry, oxygen supplement, hepatic diet, BRIAN stockings, SCDs, out of bed to chair, physical therapy, and occupational therapy all ordered. The patient seen by case management, the patient's discharge plan acute rehab versus subacute rehab, the patient seen and evaluated by the physical therapist, and the recommendations were noted as acute rehab as of today. The patient's has been in contact with the licensed social worker regarding discharge planning details. The patient's updated about the patient's condition, diagnosis, overall guarded to poor prognosis, which he acknowledged and understand. Dictated and electronically signed, not read. Krzysztof Koehler MD
[2018-10-28] MEDS: Levalbuterol 0.63 MG/3 ML Inhal Soln UD IH SCH ×4 (02:51→19:44)
[2018-10-28] MEDS: Pantoprazole 40 mg Susp UD PO SCH (10:25)
[2018-10-28] MEDS: levETIRAcetam 500mg IVPB 500 MG/100 ML BAG IVPB SCH ×2 (10:26→21:45)
[2018-10-28] MEDS: Acetylcysteine 20% Inhal Soln (4ml) IH SCH ×2 (13:36→19:44)
[2018-10-28] MEDS ORDERED: Vancomycin 1.5 GM in Sodium Chloride 0.9% 500 ML IVPB ONE (13:39)
--- NOTE | 2018-10-28 13:41 | PN ---
DATE: 10/28/2018 SUBJECTIVE: The patient is now moved to [facility], bed two. The patient is lying in the bed. The patient is responsive. PHYSICAL EXAMINATION: VITAL SIGNS: T-max is 100.2. Telemetry shows sinus tach 98 to 106, blood pressure 122/84 and 127/84, respiration 18 to 19, O2 sat 95% to 97%. HEAD: Normocephalic, atraumatic. HEENT: Examination shows pinkish pale conjunctivae. Dry oral mucosa. NECK: No neck rigidity. CHEST: Kyphosis. LUNGS: Examination shows occasional rhonchi, upper lung ryder bilaterally. CARDIOVASCULAR: S1, S2, tachycardic rhythm. ABDOMEN: Soft. Positive bowel sound. No palpable hepatosplenomegaly noted. GENITALIA: Female. RECTAL: Deferred. EXTREMITIES: No pitting edema, no calf tenderness, no Homans signs. NEUROLOGIC: The patient is arousable, awake, responsive, able to say her name. Positive left-sided hemiplegia and hemiparesis. Gait examination could not be tested. Body mass index is 23.4. DIAGNOSTICS: None from today. Fingerstick blood sugar 216, 163, 191, 188, 136, 148. IMPRESSION: 1. New fever. 2. Tachycardia. 3. Questionable aspiration. 4. Udo-xcvdigz-lmyfatavy diabetes mellitus. 5. Right posterior frontoparietal deep white matter intracerebral bleeding and hematoma with hemorrhagic byproduct and surrounding edema with mass effect with overlying sulci effacement and mild inferior and slight medial compressive effects on the superior margin of the right lateral ventricle with small amount of subarachnoid hemorrhage within the overlying sulci at the vertex. 6. Chronic microvascular ischemic disease of the brain. 7. Cerebral cortical atrophy of the brain. 8. Bilateral cataract surgery. 9. Left hemiplegia. 10. Status post leukocytosis, granulocytosis 11. Gait dysfunction. 12. Deconditioning. 13. Dementia. 14. Constipation. 15. Hypovitaminosis D. 16. History of diabetes mellitus. 17. Hyperlipidemia. PLAN: At this time, the patient will be ordered stat labs, blood cultures, urine cultures, chest x-ray, infectious diseases evaluation for fever. The patient will be started on broad-spectrum IV antibiotics. The patient's overall prognosis is guarded to poor. The patient's spouse aware. At present, the patient's is working in collaboration with the Orthotic/Prosthetic Practitioner with discharge planning options. Dictated and electronically signed, not read. Krzysztof Koehler MD
--- NOTE | 2018-10-28 14:03 | CP.PCM.CON ---
History of Present Illness - History of Present Illness History of Present Illness: 63 year old female with PMH of HTN, DM, dyslipidemia is currently admitted in [facility] after she sustained a fall and presented with left sided weakness. She was diagnosed to have a right sided large cerebral hematoma and is currently being managed conservatively by Neurology. Initially she had some speech impairment but currently talks and converses well, but still has the left sided weakness. Her appetite is good and BM's are regular without diarrhea. Today she developed lower grade fever and Infectious diseases consult is requested to further evaluate and manage. She currently denies headache or dizziness, no sore throat, no rhinorrhea, no cough, no SOB, no chest pain, no dysphagia, no abdominal pain, no nausea or vomiting, no dysuria. Review of Systems - Review of Systems All systems: reviewed and no additional remarkable complaints except (as per HPI) Past Patient History - Past Social History Smoking Status: Never Smoked - CARDIAC Hx Hypertension: Yes - PULMONARY Hx Respiratory Disorders: No - NEUROLOGICAL Hx Dementia: Yes - HEENT Hx HEENT Problems: No - RENAL Hx Chronic Kidney Disease: No - ENDOCRINE/METABOLIC Hx Diabetes Mellitus Type 2: Yes - HEMATOLOGICAL/ONCOLOGICAL Hx Blood Disorders: No - INTEGUMENTARY Hx Dermatological Problems: No - MUSCULOSKELETAL/RHEUMATOLOGICAL Hx Musculoskeletal Disorders: No - GASTROINTESTINAL Hx Gastrointestinal Disorders: No - GENITOURINARY/GYNECOLOGICAL Hx Genitourinary Disorders: No - PSYCHIATRIC Hx Psychophysiologic Disorder: No Hx Substance Use: No - SURGICAL HISTORY Hx Surgeries: No Meds Allergies/Adverse Reactions: Allergies Allergy/AdvReac Type Severity Reaction Status Date / Time No Known Allergies Allergy Verified 10/20/18 18:58 - Medications Medications: Current Medications Acetaminophen (Tylenol 325mg Tab) 650 mg PO Q6 PRN PRN Reason: TEMP>=99.5F Last Admin: 10/28/18 13:01 Dose: 650 mg Acetaminophen (Tylenol 650 Mg Supp) 650 mg RC Q6H PRN PRN Reason: TEMP>=99.5F Acetylcysteine (Acetylcysteine 20%) 4 ml IH [id number] [facility] Atorvastatin Calcium (Lipitor) 40 mg PO DIN [facility] Last Admin: 10/27/18 18:02 Dose: 40 mg Docusate Sodium (Colace) 100 mg PO TID [facility] Last Admin: 10/28/18 13:01 Dose: 100 mg Donepezil HCl (Aricept) 5 mg PO HS [facility] Last Admin: 10/27/18 22:20 Dose: 5 mg Ergocalciferol (Drisdol 50,000 Intl Units Cap) 1 cap PO Q7D [facility] Last Admin: 10/25/18 13:26 Dose: 1 cap Levetiracetam (Keppra 500mg Ivpb) 500 mg in 100 mls @ 400 mls/hr IVPB Q12 [facility] Last Admin: 10/28/18 10:26 Dose: 400 mls/hr Meropenem/Sodium Chloride (Merrem Iv 500 Mg/Ns 50 Ml) 500 mg in 50 mls @ 12.5 mls/hr IVPB Q8 [facility]; Protocol Levalbuterol HCl (Xopenex) 0.63 mg IH [id number] [facility] Ondansetron HCl (Zofran Inj) 4 mg IVP Q4H PRN PRN Reason: Nausea/Vomiting Pantoprazole Sodium (Protonix Susp) 40 mg PO ACB [facility] Last Admin: 10/28/18 10:25 Dose: 40 mg Physical Exam - Constitutional Appears: No Acute Distress, Chronically Ill - Head Exam Head Exam: NORMAL INSPECTION - ENT Exam ENT Exam: Mucous Membranes Moist - Neck Exam Neck exam: Negative for: Lymphadenopathy, Meningismus - Respiratory Exam Respiratory Exam: Decreased Breath Sounds. absent: Rales - Cardiovascular Exam Cardiovascular Exam: +S1, +S2 - GI/Abdominal Exam GI & Abdominal Exam: Soft. absent: Tenderness - Neurological Exam Additional comments: left sided hemiparesis noted Results - Vital Signs Recent Vital Signs: Last Vital Signs Temp 100.2 F H 10/28/18 13:01 Pulse 106 H 10/28/18 12:00 Resp 20 10/28/18 12:00 BP 122/84 10/28/18 12:00 Pulse Ox 95 10/28/18 06:00 - Labs Result Diagrams: 10/25/18 06:20 10/27/18 06:00 Labs: Laboratory Results - last 24 hr 10/27/18 10/27/18 10/27/18 11:31 16:23 21:34 POC Glucose (mg/dL) 136 H 188 H 191 H 10/28/18 10/28/18 07:22 11:21 POC Glucose (mg/dL) 163 H 216 H Assessment & Plan - Assessment and Plan (Free Text) Plan: Assessment New onset low grade fever, R/O due to right sided cerebral hematoma R/O bacterial infection R/O Influenza HTN DM dyslipidemia Plan Will give a dose of IV Vancomycin and start Merrem pending blood, urine cx, PCT, CXR; will also get rapid Influenza test will monitor clinically follow up further plans of Neurology
[2018-10-28 14:23] LABS: BASO # 0.02 K/mm3 (0.0-2.0); BASO % 0.2 % (0.0-3.0); EOS % 0.2 % (1.5-5.0); GRAN # 8.09 (1.4-6.5); GRAN % 73.9 % (50.0-68.0); HEMOGLOBIN 13.6 g/dL (12.0-16.0); LYMPH # 1.7 (1.2-3.4); LYMPH % 15.8 % (22.0-35.0); MEAN CELL VOLUME 90.4 fl (80.0-105.0); MEAN CORPUSCULAR HGB CONC 32.1 g/dl (31.0-37.0); MEAN PLATELET VOLUME 9.1 fl (7.0-11.0); MONO # 1.1 (0.1-0.6); MONO % 9.9 % (1.0-6.0); RBC 4.69 10^6/uL (3.5-6.1); RED CELL DISTRIBUTION WIDTH 13.5 % (11.5-14.5); WHITE BLOOD COUNT 10.9 10^3/uL (4.5-11.0)
[2018-10-28 14:43] LABS: ALB/GLOB RATIO 1.1 (1.1-1.8); ALBUMIN 4.5 g/dL (3.0-4.8); ALT/SGPT 46 U/L (7-56); AST/SGOT 50 U/L (14-36); BILIRUBIN,DIRECT 0.2 mg/dL (0.0-0.4); BLOOD UREA NITROGEN 63 mg/dL (7-21); CALCIUM 9.9 mg/dL (8.4-10.5); GFR NON-AFRICAN AMERICAN 50
--- NOTE | 2018-10-28 15:10 | RAD ---
Date of service: 10/28/2018 HISTORY: FEVER/??PNEUMONIA ASPIRATION COMPARISON: 10/21/2018 TECHNIQUE: Chest PA and lateral FINDINGS: LUNGS: No active pulmonary disease. PLEURA: No significant pleural effusion identified. No pneumothorax apparent. CARDIOVASCULAR: No aortic atherosclerotic calcification present. Normal cardiac size. No pulmonary vascular congestion. OSSEOUS STRUCTURES: No significant abnormalities. VISUALIZED UPPER ABDOMEN: Normal. OTHER FINDINGS: None. IMPRESSION: No active disease.
--- NOTE | 2018-10-28 15:14 | CP.PCM.PN ---
<Moshe Chase - Last Filed: 10/28/18 15:20> Subjective - Date & Time of Evaluation Date of Evaluation: 10/28/18 Time of Evaluation: 08:45 - Subjective Subjective: Neurology progress note for Dr. Eric Chase PGY2 Patient seen and examined at bedside in no acute distress with at beds [place]. No acute events overnight. - Constitutional Appears: Non-toxic, No Acute Distress - Head Exam Head Exam: ATRAUMATIC, NORMAL INSPECTION, NORMOCEPHALIC - Eye Exam Eye Exam: absent: EOMI, Normal appearance (conjuncitivities of left eye) - ENT Exam ENT Exam: Mucous Membranes Moist - Neck Exam Neck Exam: absent: Full ROM (due to left sided neglect) - Respiratory Exam Respiratory Exam: Clear to Ausculation Bilateral, NORMAL BREATHING PATTERN - Cardiovascular Exam Cardiovascular Exam: REGULAR RHYTHM, +S1, +S2 - GI/Abdominal Exam GI & Abdominal Exam: Soft, Normal Bowel Sounds - Neurological Exam Neurological Exam: Awake Neuro motor strength exam: Left Upper Extremity: 5, Right Upper Extremity: 0, Left Lower Extremity: 4, Right Lower Extremity: 0 Additional comments: Left sided neglect and plegia present - Psychiatric Exam Psychiatric exam: Flat Affect - Skin Skin Exam: Normal Color, Warm Objective - Vital Signs/Intake and Output Vital Signs (last 24 hours): Temp Pulse Resp BP Pulse Ox 100.2 F H 106 H 20 122/84 95 10/28/18 13:01 10/28/18 12:00 10/28/18 12:00 10/28/18 12:00 10/28/18 06:00 Intake and Output: 10/28/18 10/28/18 06:59 18:59 Intake Total 100 Balance 100 - Medications Medications: Current Medications Acetaminophen (Tylenol 325mg Tab) 650 mg PO Q6 PRN PRN Reason: TEMP>=99.5F Last Admin: 10/28/18 13:01 Dose: 650 mg Acetaminophen (Tylenol 650 Mg Supp) 650 mg RC Q6H PRN PRN Reason: TEMP>=99.5F Acetylcysteine (Acetylcysteine 20%) 4 ml IH [id number] [facility] Last Admin: 10/28/18 13:36 Dose: 4 ml Atorvastatin Calcium (Lipitor) 40 mg PO DIN [facility] Last Admin: 10/27/18 18:02 Dose: 40 mg Docusate Sodium (Colace) 100 mg PO TID [facility] Last Admin: 10/28/18 13:01 Dose: 100 mg Donepezil HCl (Aricept) 5 mg PO HS [facility] Last Admin: 10/27/18 22:20 Dose: 5 mg Ergocalciferol (Drisdol 50,000 Intl Units Cap) 1 cap PO Q7D [facility] Last Admin: 10/25/18 13:26 Dose: 1 cap Levetiracetam (Keppra 500mg Ivpb) 500 mg in 100 mls @ 400 mls/hr IVPB Q12 [facility] Last Admin: 10/28/18 10:26 Dose: 400 mls/hr Meropenem/Sodium Chloride (Merrem Iv 500 Mg/Ns 50 Ml) 500 mg in 50 mls @ 12.5 mls/hr IVPB Q8 [facility]; Protocol Vancomycin HCl 1.5 gm/ Sodium (Chloride) 500 mls @ 167 mls/hr IVPB ONCE ONE; Protocol Stop: 10/28/18 16:38 Levalbuterol HCl (Xopenex) 0.63 mg IH [id number] [facility] Last Admin: 10/28/18 13:36 Dose: 0.63 mg Ondansetron HCl (Zofran Inj) 4 mg IVP Q4H PRN PRN Reason: Nausea/Vomiting Pantoprazole Sodium (Protonix Susp) 40 mg PO ACB [facility] Last Admin: 10/28/18 10:25 Dose: 40 mg - Labs Labs: 10/28/18 14:15 10/28/18 14:15 PT 11.3 SECONDS (9.4-12.5) 10/20/18 19:18 INR 0.99 10/20/18 19:18 APTT 28.8 Seconds (25.1-36.5) 10/20/18 19:18 Assessment and Plan - Assessment and Plan (Free Text) Assessment: 63 yr old woman with hemorrhagic lesion in right parietal cortex, large with no midline shift, now with unchanged neurological exam. Plan: -Repeat CT head -Brain MRI Wednesday to re-evaluate -Continue with current medication regimen -Continue with PT and aggressive OT along with speech therapy -Patient's eyes dry from lack of eye drops, cipro OU for conjunctivitis -Please make sure patient sits up right when eating to avoid aspiration <Suggs,Gautami - Last Filed: 10/28/18 20:43> Objective - Vital Signs/Intake and Output Vital Signs (last 24 hours): Temp Pulse Resp BP Pulse Ox 99.4 F 96 H 20 111/72 95 10/28/18 17:36 10/28/18 18:00 10/28/18 17:36 10/28/18 17:36 10/28/18 06:00 Intake and Output: 10/28/18 10/29/18 18:59 06:59 Intake Total 540 540 Output Total 1150 1150 Balance -610 -610 - Medications Medications: Current Medications Acetaminophen (Tylenol 325mg Tab) 650 mg PO Q6 PRN PRN Reason: TEMP>=99.5F Last Admin: 10/28/18 13:01 Dose: 650 mg Acetaminophen (Tylenol 650 Mg Supp) 650 mg RC Q6H PRN PRN Reason: TEMP>=99.5F Acetylcysteine (Acetylcysteine 20%) 4 ml IH [id number] [facility] Last Admin: 10/28/18 19:44 Dose: 4 ml Atorvastatin Calcium (Lipitor) 40 mg PO DIN [facility] Last Admin: 10/28/18 19:06 Dose: 40 mg Ciprofloxacin (Ciloxan 0.3% Ophth Soln) 1 drop OU TID [facility] Last Admin: 10/28/18 19:06 Dose: 1 drop Docusate Sodium (Colace) 100 mg PO TID [facility] Last Admin: 10/28/18 19:07 Dose: 100 mg Donepezil HCl (Aricept) 5 mg PO HS [facility] Last Admin: 10/27/18 22:20 Dose: 5 mg Ergocalciferol (Drisdol 50,000 Intl Units Cap) 1 cap PO Q7D [facility] Last Admin: 10/25/18 13:26 Dose: 1 cap Levetiracetam (Keppra 500mg Ivpb) 500 mg in 100 mls @ 400 mls/hr IVPB Q12 [facility] Last Admin: 10/28/18 10:26 Dose: 400 mls/hr Meropenem/Sodium Chloride (Merrem Iv 500 Mg/Ns 50 Ml) 500 mg in 50 mls @ 12.5 mls/hr IVPB Q8 [facility]; Protocol Last Admin: 10/28/18 16:28 Dose: 12.5 mls/hr Levalbuterol HCl (Xopenex) 0.63 mg IH [id number] [facility] Last Admin: 10/28/18 19:44 Dose: 0.63 mg Ondansetron HCl (Zofran Inj) 4 mg IVP Q4H PRN PRN Reason: Nausea/Vomiting Pantoprazole Sodium (Protonix Susp) 40 mg PO ACB [facility] Last Admin: 10/28/18 10:25 Dose: 40 mg - Labs Labs: 10/28/18 14:15 10/28/18 14:15 PT 11.3 SECONDS (9.4-12.5) 10/20/18 19:18 INR 0.99 10/20/18 19:18 APTT 28.8 Seconds (25.1-36.5) 10/20/18 19:18 Assessment and Plan - Assessment and Plan (Free Text) Assessment: I examined the patient with the resident and formulated the assessment and plan. Dr. suggs
[2018-10-28] MEDS: MEROPENEM 500 MG in NS 500 MG/50 ML BAG IVPB SCH ×2 (16:28→21:45)
[2018-10-28] MEDS: Ciprofloxacin 0.3% OPTH SOLN OU SCH (19:06)
[2018-10-29] MEDS: Levalbuterol 0.63 MG/3 ML Inhal Soln UD IH SCH ×4 (01:24→19:37)
[2018-10-29] MEDS: Acetylcysteine 20% Inhal Soln (4ml) IH SCH ×4 (01:24→19:37)
[2018-10-29] MEDS: MEROPENEM 500 MG in NS 500 MG/50 ML BAG IVPB SCH ×3 (05:23→23:19)
[2018-10-29] MEDS: levETIRAcetam 500mg IVPB 500 MG/100 ML BAG IVPB SCH ×2 (10:34→22:11)
[2018-10-29] MEDS: Ciprofloxacin 0.3% OPTH SOLN OU SCH ×3 (10:35→16:59)
--- NOTE | 2018-10-29 10:52 | PN ---
DATE: 10/29/2018 SUBJECTIVE: The patient is in bed, in no acute distress, nontoxic. No fevers and chills. PHYSICAL EXAMINATION: VITAL SIGNS: Temperature is 99.6, blood pressure is 110/70, respiratory rate of 18. HEENT: Unremarkable. NECK: Supple. LUNGS: Have decreased breath sounds. HEART: Normal S1, S2. ABDOMEN: Soft. LABORATORY DATA: White count of 10,000 and chemistries are reviewed. Microbiology, blood cultures are negative. Review of orders reveals the patient to be on meropenem and vancomycin intermittently. ASSESSMENT AND PLAN: A 63-year-old female with history of hypertension, diabetes, dyslipidemia with a right-sided large cerebral hematoma, being managed conservatively by Neurology with weakness, with low-grade fevers yesterday of up to 100.2, tachycardia with negative cultures. The repeat blood cultures from yesterday are pending. Urine cultures are currently collected. Chest x-ray is negative. Low-grade fevers and right-sided cerebral hematoma. On day #2 of intermittent vancomycin and meropenem. We will check on the procalcitonin. Chest x-ray is reported to be negative. We will check on the culture results. If all negative, we will discontinue the antibiotics within the next 24 hours if her initial cultures are negative. The patient is at risk for developing nosocomial infections. Earle Boudreaux MD
[2018-10-29] MEDS: Pantoprazole 40 mg Susp UD PO SCH (12:36)
[2018-10-30] MEDS: Acetylcysteine 20% Inhal Soln (4ml) IH SCH ×4 (01:12→19:31)
[2018-10-30] MEDS: Levalbuterol 0.63 MG/3 ML Inhal Soln UD IH SCH ×4 (01:13→19:31)
[2018-10-30] MEDS: MEROPENEM 500 MG in NS 500 MG/50 ML BAG IVPB SCH (06:43)
[2018-10-30] MEDS: Sodium Chloride 0.9% 1,000 ML IV SCH ×3 (06:46→23:35)
[2018-10-30 07:11] LABS: BASO # 0.04 K/mm3 (0.0-2.0); BASO % 0.5 % (0.0-3.0); EOS # 0.1 (0.0-0.7); EOS % 0.7 % (1.5-5.0); GRAN # 4.97 (1.4-6.5); GRAN % 65.3 % (50.0-68.0); HEMOGLOBIN 11.6 g/dL (12.0-16.0); LYMPH % 26.1 % (22.0-35.0); MEAN CELL VOLUME 90.8 fl (80.0-105.0); MEAN CORPUSCULAR HEMOGLOBIN 28.1 pg (25.0-35.0); MEAN CORPUSCULAR HGB CONC 30.9 g/dl (31.0-37.0); MEAN PLATELET VOLUME 9.4 fl (7.0-11.0); MONO # 0.6 (0.1-0.6); MONO % 7.4 % (1.0-6.0); RBC 4.13 10^6/uL (3.5-6.1); WHITE BLOOD COUNT 7.6 10^3/uL (4.5-11.0)
[2018-10-30 07:32] LABS: ALB/GLOB RATIO 1.1 (1.1-1.8); ALBUMIN 3.7 g/dL (3.0-4.8); ALT/SGPT 61 U/L (7-56); AST/SGOT 52 U/L (14-36); BILIRUBIN,DIRECT 0.1 mg/dL (0.0-0.4); BLOOD UREA NITROGEN 37 mg/dL (7-21); CALCIUM 8.8 mg/dL (8.4-10.5); GFR NON-AFRICAN AMERICAN > 60
[2018-10-30] MEDS: Ciprofloxacin 0.3% OPTH SOLN OU SCH ×3 (09:35→18:43)
[2018-10-30] MEDS: levETIRAcetam 500mg IVPB 500 MG/100 ML BAG IVPB SCH ×2 (09:35→23:35)
[2018-10-30] MEDS: Pantoprazole 40 mg Susp UD PO SCH (09:59)
--- NOTE | 2018-10-30 14:35 | PN ---
DATE: 10/30/2018 SUBJECTIVE: The patient is in bed in no acute distress, was seen earlier today in [facility], bed 2. PHYSICAL EXAMINATION: VITAL SIGNS: Temperature is 98, blood pressure is 106/60, respiratory rate of 20, heart rate of 79. HEENT: Examination is unremarkable. NECK: Supple. LUNGS: Have decreased breath sounds. HEART: Normal S1, S2. ABDOMEN: Soft, nontender. LABORATORY DATA: Examination reveals the patient's white count of 7.6, hemoglobin of 11, platelets of 256. BUN of 37, creatinine of 0.7. Microbiology reveals the blood cultures are no growth. MEDICATIONS: Review of orders reveals the patient to be on meropenem. ASSESSMENT AND PLAN: A 63-year-old female who was seen earlier today in [facility], bed 2, with history of hypertension, diabetes, dyslipidemia, right-sided large cerebral hematoma being managed conservatively by Neurology, low-grade fevers, tachycardia, cultures negative and chest x-ray negative, on day #3 of meropenem. With a chest x-ray from 10/28/2018, no active disease with a normal white count, afebrile, we will discontinue the meropenem. Follow the patient off antibiotics. The patient is at risk for developing nosocomial infections. Earle Boudreaux MD
--- NOTE | 2018-10-30 19:53 | PN ---
DATE: 10/30/2018 SUBJECTIVE: The patient is seen in room 267, bed 2. The patient is lying in the bed. The patient is alert, awake, responsive. Spouse at bedside. Overnight nurse's notes were reviewed. The patient remained alert, awake, responsive with positive left-sided hemiparesis and hemiplegia. No adverse events were documented. PHYSICAL EXAMINATION: VITAL SIGNS: T-max in the last 24 hours 98.8, heart rate 72, 60, 67, blood pressure 139/79, 106/68, 104/69, respiration 19 to 20, O2 sat 98% on room air. HEENT: Normocephalic, atraumatic. HEENT examination shows pink conjunctivae. Anicteric sclerae. No oropharyngeal lesion. NECK: No neck rigidity. Dry oral mucosa. CHEST: Kyphosis. CARDIOPULMONARY: S1, S2, regular rhythm. Positive systolic murmur at the left sternal border, right second intercostal space, left second intercostal space. LUNGS: Shows no audible crackle, rales or wheezing. ABDOMEN: Soft. Positive bowel sound. No palpable hepatosplenomegaly noted. GENITALIA: Female. RECTAL: Deferred. EXTREMITIES: Shows no pitting edema. No calf tenderness. No Andrews's signs. Positive left-sided hemiplegia and hemiparesis noted. VASCULAR: Palpable pulses. Gait examination could not be tested. MUSCULOSKELETAL: Shows a body mass index of 24.4. DIAGNOSTICS: On 10/30/2018, WBC 7.6, hemoglobin and hematocrit 11.6, 37.5, platelet 256. Normal differential. Sodium 139, potassium 4.1, chloride 108, CO2 27, anion gap 9, BUN 37 down from 63, creatinine 0.7, GFR greater than 60, glucose 123. Fingerstick blood sugar 121, 112, 145, , 135, calcium 8.8, phosphorus 4.1, magnesium 2.3, AST 52, ALT 61. Microbiology, blood cultures negative. The patient is seen by Infectious Disease and all IV antibiotics stopped. CURRENT MEDICATIONS: Mucomyst nebulizer 20% 4 mL every 6 hours and Xopenex nebulizer 0.63 mg every 6 hours [id number], Aricept 10 mg at bedtime. Cipro eye drops 0.3% both eyes t.i.d., Colace 100 mg three times a day, Drisdol 50,000 units weekly, Keppra 500 mg IV every 12, Lipitor 40 mg daily, Protonix 40 mg daily IV fluid 0.9 normal saline at 100 mL an hour for total three bags, Tylenol p.o. suppository every 6 p.r.n., Zofran 4 mg IV every 4 p.r.n. IMPRESSION AND PLAN: 1. Large right posterior frontoparietal parenchymal intracerebral bleed and hematoma with surrounding mass effect and vasogenic with varying degrees of and hemorrhagic by-product with mild mass effect and sulci effacement and inferior and medial compressive effects on the superior margin of the right lateral ventricle. 2. Small right-sided subarachnoid hemorrhage within the overlying sulci at the vertex. 3. Chronic periventricular white matter ischemic disease of the brain. 4. Cerebral cortical atrophy with generalized volume loss. 5. Status post bilateral cataract surgery. 6. Left hemiplegia and paresis. 7. Fever. 8. Left ventricular ejection fraction of 69% with trace tricuspid and trace pulmonic regurgitation. 9. History of type 2 diabetes mellitus, history of hypertension, history of hypovitaminosis D, history of depression, history of insomnia, history of advanced dementia, history of hyperlipidemia, , history of hypertension. 10. Sinus bradycardia with ischemic changes on the EKG. 11. Severe gait dysfunction and deconditioning with bedridden status. 12. Possible functional quadriplegia with left hemiplegia and paresis. The patient has been ordered physical therapy. The patient was seen and evaluated by physical therapy today and their recommendation is to continue PT, acute rehab, discharge recommendation. At present, the patient is awaiting discharge to acute rehab versus subacute rehab whichever the patient's insurance approves. At present, otherwise, the patient is medically ready for discharge unless there are any further changes. Current consultation, Infectious Disease, Neurology, Neurosurgery and Cardiology. Dictated and electronically signed, not read. Krzysztof Koehler MD
[2018-10-31] MEDS: Acetylcysteine 20% Inhal Soln (4ml) IH SCH ×4 (01:26→19:26)
[2018-10-31] MEDS: Levalbuterol 0.63 MG/3 ML Inhal Soln UD IH SCH ×4 (01:26→19:26)
[2018-10-31] MEDS: Sodium Chloride 0.9% 1,000 ML IV SCH (04:17)
[2018-10-31 07:27] LABS: ALB/GLOB RATIO 1.1 (1.1-1.8); ALBUMIN 3.6 g/dL (3.0-4.8); ALT/SGPT 57 U/L (7-56); AST/SGOT 52 U/L (14-36); BILIRUBIN,DIRECT 0.2 mg/dL (0.0-0.4); BLOOD UREA NITROGEN 27 mg/dL (7-21); CALCIUM 8.5 mg/dL (8.4-10.5); GFR NON-AFRICAN AMERICAN > 60
--- NOTE | 2018-10-31 09:05 | PN ---
DATE: 10/29/2018 SUBJECTIVE: The patient is seen lying in the bed in room 267, bed 2. The patient's is at bedside. Overnight nurse's notes were reviewed from yesterday and overnight. The patient rested comfortably without any adverse events documented. The patient remained lethargic, but arousable.. The patient was able to communicate without any difficulty. The patient slept very well. The patient was found to be alert, awake, responsive. PHYSICAL EXAMINATION VITAL SIGNS: T-max in the last 24 hours 100.2 down to 99.4, down to 99.6, down to 97.1. The patient's telemetry shows sinus rhythm, no arrhythmias documented. Heart rate 59, 84, 88, blood pressure 105/63, 124/80, 110/79, respiration 19, O2 sat is 95% to 97%. HEENT: Head is normocephalic, atraumatic. HEENT examination shows pink conjunctivae. Anicteric sclerae. No oropharyngeal lesion. Chest: Symmetrical. Kyphosis. NECK: No neck rigidity. CARDIOPULMONARY: S1, S2, regular rhythm. LUNGS: Shows questionable anterior upper lung ryder, rhonchi. No crackles, rales or wheezing noted. ABDOMEN: Soft. Positive bowel sound. No palpable hepatosplenomegaly. GENITALIA: Female. RECTAL: Deferred. EXTREMITIES: Shows no pitting edema. No calf tenderness. No Andrews's signs. The patient has complete left-sided hemiplegia, hemiparesis. LABORATORY DATA: The patient's diagnostics from yesterday were reviewed. WBC 10.9, hemoglobin and hematocrit 13.6, 42.4, platelets 300,000. Granulocytes 74% segs. Sodium 141, potassium 4.6, chloride 105, CO2 of 28, anion gap 13. The patient's BUN has gone up to 63, creatinine 1.1. GFR greater than 60. Glucose 216, 213. Fingerstick blood sugar 158, 162, 135, 193, calcium 9.9, phosphorus 4.3, magnesium 2.8, AST 50. Rest of the LFTs are within normal limit. Microbiology, blood and urine cultures, blood cultures which are done yesterday, results are negative. Chest x-ray was reported to be negative. MEDICATIONS: Text. IMPRESSION: 1. New fever. 2. Questionable systemic inflammatory response syndrome. 3. Tachycardia. 4. History of hypertension, history of diabetes, history of hyperlipidemia, history of hypovitaminosis D, history of right-sided intracerebral bleed with left hemiplegia. 5. Right frontoparietal hemorrhagic bleed and stroke. 6. Gait dysfunction. 7. Left hemiplegia, hemiparesis. 8. Right posterior frontoparietal deep white matter intra-hemorrhagic stroke and infarct with intracerebral hematoma with hemorrhagic by-product and evolution and surrounding edema with mass effect with overlying sulci effacement and inferior and medial compressive effects on the superior margin of the right at the lateral ventricle. 9. Small subarachnoid hemorrhage. 10. Chronic microvascular ischemic disease of the brain with cerebral cortical atrophy of the brain. 11. Bilateral cataract surgery. 12. Questionable small right subpleural infiltrate on the CT scan. 13. History of dementia, history of insomnia, history of depression, history of anxiety disorder. 14. Prerenal kidney injury. 15. Diabetes mellitus with hemoglobin A1c of 6.6. 16. Hypercholesteremia with elevated LDL. 17. Gait dysfunction. PLAN: At this time, the patient is seen by Infectious Disease. Neurology recommendations reviewed. CURRENT MEDICATIONS: Mucomyst nebulizer treatment 20% 4 mL every 6 hours with Xopenex nebulizer treatment 0.63 mg four times a day, Aricept, increased to 10 mg at bedtime. The patient has ordered ciprofloxacin eye appointment three times a day, Colace 100 mg three times a day, Drisdol 50,000 units weekly, Keppra 500 mg IV every 12, Lipitor 40 mg daily, meropenem 500 mg IV every 8, Protonix 40 mg daily. The patient is started on IV fluid 0.9 normal saline at 100 mL an hour x3 liters, Tylenol p.o. suppository every 6 p.r.n. The patient was given intermittent vancomycin 1.5 g yesterday. The patient is on Zofran 4 mg IV every 4 p.r.n. The patient has been ordered repeat labs for the morning. The patient at present will be continued on the above-therapeutic interventions. The patient has been ordered out of bed to chair, physical therapy, occupational therapy all ordered. The patient's further management will be dependent upon the patient's clinical condition, hemodynamic status and as per the patient response to therapeutic intervention, as per the patient's diagnostic test results and as per recommendation by all the physician involved the care of the patient. Dictated and electronically signed, not read. Krzysztof Koehler MD
[2018-10-31] MEDS: levETIRAcetam 500mg IVPB 500 MG/100 ML BAG IVPB SCH ×2 (10:08→21:21)
[2018-10-31] MEDS: Ciprofloxacin 0.3% OPTH SOLN OU SCH ×3 (10:09→18:24)
[2018-10-31] MEDS: Pantoprazole 40 mg Susp UD PO SCH (10:10)
--- NOTE | 2018-10-31 14:00 | CP.PCM.PN ---
Subjective - Date & Time of Evaluation Date of Evaluation: 10/31/18 Time of Evaluation: 10:00 - Subjective Subjective: Afebrile, no headache, no cough, no dysuria, diarrhea. Objective - Vital Signs/Intake and Output Vital Signs (last 24 hours): Temp Pulse Resp BP Pulse Ox 98.7 F 60 16 116/80 99 10/31/18 06:00 10/31/18 06:00 10/31/18 06:00 10/31/18 06:00 10/31/18 06:00 Intake and Output: 10/31/18 10/31/18 06:59 18:59 Intake Total 360 Output Total 650 Balance -290 - Medications Medications: Current Medications Acetaminophen (Tylenol 325mg Tab) 650 mg PO Q6 PRN PRN Reason: TEMP>=99.5F Last Admin: 10/28/18 13:01 Dose: 650 mg Acetaminophen (Tylenol 650 Mg Supp) 650 mg RC Q6H PRN PRN Reason: TEMP>=99.5F Acetylcysteine (Acetylcysteine 20%) 4 ml IH [id number] [facility] Last Admin: 10/31/18 13:33 Dose: 4 ml Atorvastatin Calcium (Lipitor) 40 mg PO DIN [facility] Last Admin: 10/30/18 18:41 Dose: 40 mg Ciprofloxacin (Ciloxan 0.3% Oph Soln) 1 drop OU TID [facility] Last Admin: 10/31/18 10:09 Dose: 1 drop Docusate Sodium (Colace) 100 mg PO TID [facility] Last Admin: 10/31/18 10:08 Dose: 100 mg Donepezil HCl (Aricept) 10 mg PO HS [facility] Last Admin: 10/30/18 23:36 Dose: 10 mg Ergocalciferol (Drisdol 50,000 Intl Units Cap) 1 cap PO Q7D [facility] Last Admin: 10/25/18 13:26 Dose: 1 cap Levetiracetam (Keppra 500mg Ivpb) 500 mg in 100 mls @ 400 mls/hr IVPB Q12 [facility] Last Admin: 10/31/18 10:08 Dose: 400 mls/hr Levalbuterol HCl (Xopenex) 0.63 mg IH [id number] [facility] Last Admin: 10/31/18 13:33 Dose: 0.63 mg Ondansetron HCl (Zofran Inj) 4 mg IVP Q4H PRN PRN Reason: Nausea/Vomiting Pantoprazole Sodium (Protonix Susp) 40 mg PO ACB [facility] Last Admin: 10/31/18 10:10 Dose: 40 mg - Labs Labs: 10/30/18 06:45 10/31/18 06:30 PT 11.3 SECONDS (9.4-12.5) 10/20/18 19:18 INR 0.99 10/20/18 19:18 APTT 28.8 Seconds (25.1-36.5) 10/20/18 19:18 - Constitutional Appears: Chronically Ill - Head Exam Head Exam: NORMAL INSPECTION - Neck Exam Neck Exam: absent: Meningismus - Respiratory Exam Respiratory Exam: Decreased Breath Sounds - Cardiovascular Exam Cardiovascular Exam: +S1, +S2 - GI/Abdominal Exam GI & Abdominal Exam: Soft. absent: Tenderness Assessment and Plan - Assessment and Plan (Free Text) Plan: Assessment low grade fever, probably due to right sided cerebral hematoma - no evidence of sepsis or bacterial infection HTN DM dyslipidemia Plan will continue to monitor off antibiotics since she is at risk for nosocomial infections follow up further plans of Neurology
[2018-10-31] MEDS ORDERED: Nystatin 100,000 Units/gm Topical Pow(15 gm) TOP SCH (18:00)
--- NOTE | 2018-10-31 23:38 | CP.PCM.PN ---
Subjective - Date & Time of Evaluation Date of Evaluation: 12/01/18 Time of Evaluation: 09:25 - Subjective Subjective: Patient seen and examined on bedside. Patient has not made much progress since stroke. No complaints overnight. - Constitutional Appears: Non-toxic, No Acute Distress - Head Exam Head Exam: ATRAUMATIC, NORMAL INSPECTION, NORMOCEPHALIC - Eye Exam Eye Exam: absent: EOMI, Normal appearance (conjuncitivities of left eye) - ENT Exam ENT Exam: Mucous Membranes Moist - Neck Exam Neck Exam: absent: Full ROM (due to left sided neglect) - Respiratory Exam Respiratory Exam: Clear to Ausculation Bilateral, NORMAL BREATHING PATTERN - Cardiovascular Exam Cardiovascular Exam: REGULAR RHYTHM, +S1, +S2 - GI/Abdominal Exam GI & Abdominal Exam: Soft, Normal Bowel Sounds - Neurological Exam Neurological Exam: Awake Neuro motor strength exam: Left Upper Extremity: 5, Right Upper Extremity: 0, Left Lower Extremity: 4, Right Lower Extremity: 0 Additional comments: Left sided neglect and plegia present - Psychiatric Exam Psychiatric exam: Flat Affect - Skin Skin Exam: Normal Color, Warm Objective - Vital Signs/Intake and Output Vital Signs (last 24 hours): Temp Pulse Resp BP Pulse Ox 98.5 F 63 18 108/58 L 96 10/31/18 23:09 10/31/18 23:09 10/31/18 23:09 10/31/18 23:09 10/31/18 23:09 Intake and Output: 10/31/18 11/01/18 18:59 06:59 Intake Total 240 Output Total 800 Balance -560 - Medications Medications: Current Medications Acetaminophen (Tylenol 325mg Tab) 650 mg PO Q6 PRN PRN Reason: TEMP>=99.5F Last Admin: 10/28/18 13:01 Dose: 650 mg Acetaminophen (Tylenol 650 Mg Supp) 650 mg RC Q6H PRN PRN Reason: TEMP>=99.5F Acetylcysteine (Acetylcysteine 20%) 4 ml IH [id number] [facility] Last Admin: 10/31/18 19:26 Dose: 4 ml Atorvastatin Calcium (Lipitor) 40 mg PO DIN [facility] Last Admin: 10/31/18 18:28 Dose: 40 mg Ciprofloxacin (Ciloxan 0.3% Ophth Soln) 1 drop OU TID [facility] Last Admin: 10/31/18 18:24 Dose: 1 drop Docusate Sodium (Colace) 100 mg PO TID [facility] [place] Last Admin: 10/31/18 18:23 Dose: Not Given Donepezil HCl (Aricept) 10 mg PO HS [facility] Last Admin: 10/31/18 21:21 Dose: 10 mg Ergocalciferol (Drisdol 50,000 Intl Units Cap) 1 cap PO Q7D [facility] [place] Last Admin: 10/25/18 13:26 Dose: 1 cap Levetiracetam (Keppra 500mg Ivpb) 500 mg in 100 mls @ 400 mls/hr IVPB Q12 [facility] Last Admin: 10/31/18 21:21 Dose: 400 mls/hr Levalbuterol HCl (Xopenex) 0.63 mg IH [id number] [facility] Last Admin: 10/31/18 19:26 Dose: 0.63 mg Ondansetron HCl (Zofran Inj) 4 mg IVP Q4H PRN PRN Reason: Nausea/Vomiting Pantoprazole Sodium (Protonix Susp) 40 mg PO ACB [facility] Last Admin: 10/31/18 10:10 Dose: 40 mg - Labs Labs: 10/30/18 06:45 10/31/18 06:30 PT 11.3 SECONDS (9.4-12.5) 10/20/18 19:18 INR 0.99 10/20/18 19:18 APTT 28.8 Seconds (25.1-36.5) 10/20/18 19:18 Assessment and Plan - Assessment and Plan (Free Text) Assessment: 63 yr old woman with hemorrhagic lesion in right parietal cortex, large with no midline shift, now with unchanged neurological exam. Plan: -Brain MRI -Continue with current medication regimen -Continue with PT and aggressive OT along with speech therapy when transferred to facility -Patient's eyes dry from lack of eye drops, cipro OU for conjunctivitis
[2018-11-01] MEDS: Acetylcysteine 20% Inhal Soln (4ml) IH SCH ×4 (01:26→19:41)
[2018-11-01] MEDS: Levalbuterol 0.63 MG/3 ML Inhal Soln UD IH SCH ×4 (01:26→19:42)
[2018-11-01 08:52] LABS: ALBUMIN 3.5 g/dL (3.0-4.8); ALT/SGPT 53 U/L (7-56); AST/SGOT 48 U/L (14-36); BILIRUBIN,DIRECT 0.2 mg/dL (0.0-0.4); BLOOD UREA NITROGEN 22 mg/dL (7-21); CALCIUM 8.6 mg/dL (8.4-10.5); GFR NON-AFRICAN AMERICAN > 60
[2018-11-01] MEDS: levETIRAcetam 500mg IVPB 500 MG/100 ML BAG IVPB SCH ×2 (10:12→21:55)
[2018-11-01] MEDS: Pantoprazole 40 mg Susp UD PO SCH (10:14)
[2018-11-01] MEDS: Ciprofloxacin 0.3% OPTH SOLN OU SCH ×3 (10:14→17:16)
[2018-11-01] MEDS: POLYETHYLENE GLYCOL 3350 17 GM/Dose PACKET PO SCH ×2 (10:14→17:16)
[2018-11-01] MEDS: Ergocalciferol 50,000 Intl Units Cap PO SCH (12:24)
--- NOTE | 2018-11-01 13:07 | PN ---
DATE: 11/01/2018 SUBJECTIVE: The patient is seen earlier today in room 560. No fevers and no chills. PHYSICAL EXAMINATION: VITAL SIGNS: Temperature is 98, blood pressure is 117/20, respiratory rate of 18. HEENT: Unremarkable. NECK: Supple. LUNGS: Have decreased breath sounds. HEART: Normal S1, S2. ABDOMEN: Soft, nontender. LABORATORY EXAMINATION: Reveals a white count of 7.6, hemoglobin of 11, platelets of 256. Coagulation is noted and BUN of 22, creatinine of 0.6. Blood cultures are negative. Review of orders reveals the patient to be off of antibiotics. ASSESSMENT/PLAN: A 63-year-old female seen earlier today in 560 with low-grade fevers, probably secondary to right-sided cerebral hematoma. No evidence of infection or sepsis of bacterial infection. The patient was hypertensive, diabetic and dyslipidemia. Currently off of antibiotics. The patient is at risk for developing nosocomial infections. Earle Boudreaux MD
--- NOTE | 2018-11-01 20:00 | PN ---
DATE: 11/01/2018 SUBJECTIVE: The patient is seen in room 560, bed 1. Overnight nurse's notes were reviewed. The patient was seen lying in the bed getting a nebulizer treatment. OBJECTIVE: GENERAL: The patient is awake, responsive. VITAL SIGNS:, T max is 98.2, heart rate 63, blood pressure , respiration 20, O2 sat 98%. HEAD: Normocephalic, atraumatic. HEENT: Shows pinkish pale conjunctivae. Anicteric sclerae. No oropharyngeal lesion. No neck rigidity. CHEST: Kyphosis. LUNGS: Shows no audible crackle, rales or wheezing. CARDIOVASCULAR: S1, S2, regular rhythm. ABDOMEN: Soft. Positive bowel sound. No palpable hepatosplenomegaly noted. GENITALIA: Female. RECTAL: Deferred. EXTREMITIES: Shows no pitting edema, no calf tenderness, no Homans' sign. Positive left-sided hemiplegia noted. Gait examination is not tested. MUSCULOSKELETAL: Noted to be 24. NEUROLOGICAL: Limited with left hemiplegia. LABORATORY AND DIAGNOSTICS: On 11/01/2018 sodium 140, potassium 3.7, chloride 106, CO2 27, anion gap 11, BUN 22, creatinine 0.6, GFR greater than 60, glucose 115, calcium 8.6, phosphorus 3.8, magnesium 2.3, AST 48. Rest of the LFTs are normal. Blood cultures no growth. Blood type A+. IMPRESSION AND PLAN: The patient seen by Infectious Disease. 1.. Large right posterior frontoparietal parenchymal intracerebral bleed and hematoma with surrounding mass effect and vasogenic edema with varying degrees of hemorrhagic by-product with mild mass effect and sulci effacement and inferior medial compressive effects on the superior margin of the right lateral ventricle. 2. Left hemiplegia. 3. Small right-sided subarachnoid hemorrhage within the underlying sulci at the vertex. 4. Chronic periventricular white matter ischemic disease of the brain. 5. Cerebral cortical atrophy and generalized volume loss. 6. Dementia. 7. Gait dysfunction. 8. Deconditioning. 9. History of diabetes mellitus, history of hyperlipidemia, history of hypertension, history of insomnia, history of depression. 10. Fever. 11. Hypertensive cardiovascular disease with left ventricle ejection fraction of 69% 12. Sinus bradycardia. 13. Rales. 14. Small right subpleural infiltrate. PLAN: At this time, the patient is currently on Mucomyst nebulizer 20% 4 mL with Xopenex nebulizer 0.63 mg every 6 hours, Aricept 10 mg at bedtime, ciprofloxacin eye drops three times a day, Drisdol 50,000 units weekly, Keppra 500 mg IV every 12 hours, Lipitor 40 mg daily, MiraLax 17 g twice a day, Protonix 40 mg daily, Zofran 4 mg IV every 4 hours p.r.n.,Tylenol 650 mg p.o. suppository every 6 hours p.r.n. The patient at present is awaiting acute rehab placement versus subacute rehab placement. The patient's condition, diagnosis, overall guarded to poor prognosis discussed and explained to the patient's spouse on multiple occasions during this hospitalization which he acknowledged and understands. All questions concerned answered. The patient has been seen by the physical therapist. The patient has been seen by speech pathologist.. At present, the patient is otherwise medically stable for discharge unless Neurology has further recommendations. Dictated and electronically signed, not read. Krzysztof Koehler MD
[2018-11-02] MEDS: Acetylcysteine 20% Inhal Soln (4ml) IH SCH ×4 (03:21→20:05)
[2018-11-02] MEDS: Levalbuterol 0.63 MG/3 ML Inhal Soln UD IH SCH ×4 (03:22→20:05)
[2018-11-02] MEDS: levETIRAcetam 500mg IVPB 500 MG/100 ML BAG IVPB SCH ×2 (09:48→23:12)
[2018-11-02] MEDS: Pantoprazole 40 mg Susp UD PO SCH (09:51)
[2018-11-02] MEDS: POLYETHYLENE GLYCOL 3350 17 GM/Dose PACKET PO SCH ×2 (09:51→18:32)
[2018-11-02] MEDS: Ciprofloxacin 0.3% OPTH SOLN OU SCH ×3 (09:52→18:32)
--- NOTE | 2018-11-02 12:56 | PN ---
DATE: 11/02/2018 SUBJECTIVE: The patient is in room 560, bed 1. The patient's overnight nurse's notes were reviewed. The patient was found to be alert, awake, responsive, oriented x2. The patient has left hemiplegia. The patient is lying in the bed. Overnight nurse's notes were reviewed. PHYSICAL EXAMINATION: VITAL SIGNS: T-max 98.3, heart rate 59, blood pressure 122/78, respiration 18, O2 sat 100%. Fingerstick blood sugar was noted. No labs are noted. HEENT: Head examination normocephalic, atraumatic. HEENT examination shows pinkish pale conjunctivae. Dry oral mucosa. No neck rigidity. CHEST: Kyphosis. LUNGS: No audible crackle, rales or wheezing. CARDIOVASCULAR: S1, S2, regular rhythm. Questionable soft systolic murmur, left sternal border, right second intercostal space, left second intercostal space. ABDOMEN: Soft. Positive bowel sounds. GENITALIA: Female. No palpable hepatosplenomegaly noted. EXTREMITIES: No pitting edema of the lower extremity. Positive SCDs. Positive left-sided hemiplegia. NEUROLOGIC: Cranial nerves II through XII limited. Gait examination could not be tested. VASCULAR: Palpable pulses. DIAGNOSTICS: None from today. IMPRESSION AND PLAN: 1. Large right posterior frontoparietal intracerebral intracranial bleed and parenchymal bleed with left hemiplegia. 2. Status post febrile illness and fever. 3. Small subpleural right lower lobe infiltrative pneumonia. 4. Gait dysfunction. 5. Deconditioning. 6. Bradycardia. 7. History of hypertension, history of type 2 noninsulin-requiring diabetes mellitus, history of hypovitaminosis D, history of dementia, history of anxiety and depression. PLAN: At this time, the patient is medically stable. We are awaiting further neurological clearance for discharge and placement to rehab. The patient is on GI prophylaxis and nonpharmacological DVT prophylaxis. The patient is on IV Keppra 500 IV every 12 hours. The patient is on Aricept 10 mg at bedtime. The patient is on sliding scale insulin coverage. The patient is on GI prophylaxis and DVT prophylaxis. The patient has been seen and evaluated by Physical Therapy, Occupational Therapy, speech therapist and swallowing therapist. The patient at present has been evaluated and recommended for rehab placement. The patient's condition, diagnosis, test results, overall guarded to poor prognosis discussed and explained to the patient's on multiple occasions during this hospitalization which he acknowledged and understand. At present, the patient has been medically cleared for discharge if cleared by Neurology. Dictated and electronically signed, not read. Krzysztof Koehler MD
--- NOTE | 2018-11-02 15:53 | MRI ---
Date of service: 11/02/2018 PROCEDURE: MRI BRAIN WITHOUT CONTRAST HISTORY: r/o mass COMPARISON: CT of the head 10/20/2018 and MRI 10/23/2018 TECHNIQUE: Multiplanar, multisequence MR images of the brain were obtained without intravenous contrast enhancement. FINDINGS: HEMORRHAGE: There is a hematoma in the right posterior frontal lobe measuring 3 x 3.6 cm in size with a large area of surrounding vasogenic edema. The blood products have evolved into the subacute phase. DWI: No evidence of an acute or early subacute infarction. BRAIN PARENCHYMA: There is mild mass effect with effacement of the sulci. No atrophy or chronic microvascular ischemic changes. VENTRICLES: Unremarkable. No hydrocephalus. CRANIUM: Unremarkable. ORBITS: Grossly unremarkable. PARANASAL SINUSES/MASTOIDS: Clear VASCULAR SYSTEM: Skull base flow voids intact. OTHER FINDINGS: None. IMPRESSION: There is a hematoma in the right posterior frontal lobe measuring 3 x 3.6 cm in size with a large area of surrounding vasogenic edema. The blood products have evolved into the subacute phase. The size of the hematoma is unchanged
[2018-11-03] MEDS: Levalbuterol 0.63 MG/3 ML Inhal Soln UD IH SCH ×4 (02:45→19:26)
[2018-11-03] MEDS: Acetylcysteine 20% Inhal Soln (4ml) IH SCH ×4 (02:45→19:26)
--- NOTE | 2018-11-03 08:24 | PN ---
DATE: 11/02/2018 SUBJECTIVE: The patient in bed, in no acute distress. OBJECTIVE: VITAL SIGNS: On exam, temperature is 97, blood pressure is 108/70, respiratory rate of 18, heart rate of 69. HEENT: Unremarkable. NECK: Supple. LUNGS: Have decreased breath sounds. HEART: Normal S1 and S2. ABDOMEN: Soft. LABORATORY EXAMINATION: Reveals a white count of 7.6, hemoglobin of 11, platelets of 256. BUN of 22, creatinine of 0.6. Microbiology reveals blood cultures are negative. Urine cultures are negative. MRI of the brain, mild mass effect with effacement of the sulci and there is a hematoma in the right posterior frontal lobe. ASSESSMENT AND PLAN: This is a 63-year-old female probably secondary to right-sided cerebral hematoma, no evidence of infection. No sepsis. Currently off of antibiotics. The patient has a risk for developing nosocomial infections. Earle Boudreaux MD
[2018-11-03] MEDS: Pantoprazole 40 mg Susp UD PO SCH (08:32)
--- NOTE | 2018-11-03 09:08 | CP.PCM.PN ---
Subjective - Date & Time of Evaluation Date of Evaluation: 11/02/18 Time of Evaluation: 09:00 - Subjective Subjective: Patient seen and examined at bedside in no acute distress with no complaints. Patient still demonstrates visual agnosia. - Constitutional Appears: Non-toxic, No Acute Distress - Head Exam Head Exam: ATRAUMATIC, NORMAL INSPECTION, NORMOCEPHALIC - Eye Exam Eye Exam: absent: EOMI, Normal appearance (conjuncitivities of left eye) - ENT Exam ENT Exam: Mucous Membranes Moist - Neck Exam Neck Exam: absent: Full ROM (due to left sided neglect) - Respiratory Exam Respiratory Exam: Clear to Ausculation Bilateral, NORMAL BREATHING PATTERN - Cardiovascular Exam Cardiovascular Exam: REGULAR RHYTHM, +S1, +S2 - GI/Abdominal Exam GI & Abdominal Exam: Soft, Normal Bowel Sounds - Neurological Exam Neurological Exam: Awake Neuro motor strength exam: Left Upper Extremity: 5, Right Upper Extremity: 0, Left Lower Extremity: 4, Right Lower Extremity: 0 Additional comments: Left sided neglect and plegia present - Psychiatric Exam Psychiatric exam: Flat Affect - Skin Skin Exam: Normal Color, Warm Objective - Vital Signs/Intake and Output Vital Signs (last 24 hours): Temp Pulse Resp BP Pulse Ox 98.7 F 64 18 100/71 98 11/03/18 06:00 11/03/18 06:00 11/03/18 06:00 11/03/18 06:00 11/03/18 06:00 Intake and Output: 11/03/18 11/03/18 06:59 18:59 Intake Total 360 Output Total 250 Balance 110 - Medications Medications: Current Medications Acetaminophen (Tylenol 325mg Tab) 650 mg PO Q6 PRN PRN Reason: TEMP>=99.5F Last Admin: 11/01/18 12:25 Dose: 650 mg Acetaminophen (Tylenol 650 Mg Supp) 650 mg RC Q6H PRN PRN Reason: TEMP>=99.5F Acetylcysteine (Acetylcysteine 20%) 4 ml IH [id number] [facility] Last Admin: 11/03/18 07:10 Dose: 4 ml Atorvastatin Calcium (Lipitor) 40 mg PO DIN [facility] Last Admin: 11/02/18 16:52 Dose: 40 mg Ciprofloxacin (Ciloxan 0.3% Ophth Soln) 1 drop OU TID [facility] Last Admin: 11/02/18 18:32 Dose: 1 drop Donepezil HCl (Aricept) 10 mg PO HS [facility] Last Admin: 11/02/18 23:12 Dose: 10 mg Ergocalciferol (Drisdol 50,000 Intl Units Cap) 1 cap PO Q7D [facility] Last Admin: 11/01/18 12:24 Dose: 1 cap Levetiracetam (Keppra 500mg Ivpb) 500 mg in 100 mls @ 400 mls/hr IVPB Q12 [facility] Last Admin: 11/02/18 23:12 Dose: 400 mls/hr Levalbuterol HCl (Xopenex) 0.63 mg IH [id number] [facility] Last Admin: 11/03/18 07:10 Dose: 0.63 mg Ondansetron HCl (Zofran Inj) 4 mg IVP Q4H PRN PRN Reason: Nausea/Vomiting Pantoprazole Sodium (Protonix Susp) 40 mg PO ACB [facility] Last Admin: 11/03/18 08:32 Dose: 40 mg Polyethylene Glycol (Miralax) 17 gm PO BID [facility] Last Admin: 11/02/18 18:32 Dose: 17 gm - Labs Labs: 10/30/18 06:45 11/01/18 07:30 PT 11.3 SECONDS (9.4-12.5) 10/20/18 19:18 INR 0.99 10/20/18 19:18 APTT 28.8 Seconds (25.1-36.5) 10/20/18 19:18 Assessment and Plan - Assessment and Plan (Free Text) Assessment: 63 yr old woman with hemorrhagic lesion in right parietal cortex, large with no midline shift, now with unchanged neurological exam. Plan: -Brain MRI reveals same sized hematoma no in subacute phase -Continue with current medication regimen -Continue with PT and aggressive OT along with speech therapy when transferred to facility -Continue cipro OU for conjunctivitis
[2018-11-03] MEDS: POLYETHYLENE GLYCOL 3350 17 GM/Dose PACKET PO SCH ×2 (09:22→17:56)
[2018-11-03] MEDS: levETIRAcetam 500mg IVPB 500 MG/100 ML BAG IVPB SCH ×2 (09:23→21:19)
[2018-11-03] MEDS: Ciprofloxacin 0.3% OPTH SOLN OU SCH ×3 (09:24→18:02)
--- NOTE | 2018-11-03 13:23 | PN ---
DATE: 11/03/2018 SUBJECTIVE: The patient is in room 560, bed 1. Overnight nurse's notes were reviewed. No adverse events were documented. The patient is still lying in the bed. OBJECTIVE: VITAL SIGNS: T-max 97.3, heart rate 69, blood pressure 108/70, respirations 18, O2 sat 94%-100%. HEENT: The patient's head examination normocephalic, atraumatic. Eyes; shows pink conjunctivae. Anicteric sclerae. No oropharyngeal lesion. NECK: No neck rigidity. CHEST: Kyphosis. LUNGS: Shows questionable upper lung field occasional rhonchi noted, upper rhonchi noted. CARDIOVASCULAR: S1, S2, regular rhythm. ABDOMEN: Soft. Positive bowel sound or palpable hepatosplenomegaly noted. GENITALIA: Female. RECTAL: Deferred. EXTREMITIES: Shows no pitting edema, no Homans' sign. Positive left hemiplegia noted. Gait examination is not tested. VASCULAR: Palpable pulses. Cranial nerves II-XII limited. Gait examination, bedridden. Fingerstick blood sugar 156, 134, 155, 115. Repeat MRI of the brain was neurology recommendation which shows subacute right posterior frontal intracranial hemorrhage with vasogenic edema and mass effect with sulci in the effacement. IMPRESSION: 1. Status post right hemorrhagic stroke. 2. History of anxiety. 3. Severe gait dysfunction and deconditioning versus functional quadriplegia. 4. Non-insulin requiring diabetes mellitus. 5. Subacute right posterior frontal intracranial hemorrhage with vasogenic edema with mass effect and sulci effacement. 6. Left hemiplegia. 7. History of hypertension. 8. History of type 2 diabetes mellitus. 9. History of hypovitaminosis D. 10. History of depression. 11. History of dementia. PLAN: 1. At this time, the patient is awaiting Neurology clearance. For discharge to rehab. The patient's disposition is as per the patient's acceptance into the rehab. 2. The patient is present. 3. The patient is to be continued on the medications as per the MAR of today which was reviewed. Otherwise, the patient is medically ready for discharge if cleared by Neurology after Neurology clearance and as soon as the patient is accepted to our ER facility. 4. I have discussed and explained the patient's condition, diagnosis, overall guarded to poor prognosis with the patient's spouse on multiple occasions during this hospitalization in layman's language. All questions concerned answered. Dictated and electronically signed, not read. Krzysztof Koehler MD
--- NOTE | 2018-11-03 14:52 | CP.PCM.PN ---
Subjective - Date & Time of Evaluation Date of Evaluation: 11/03/18 Time of Evaluation: 14:50 - Subjective Subjective: Neurology Progress Note: Patient seen and assessed at bedside with patient's at bedside. No acute events overnight noted. Further ROS limited due to patients clinical condition. Objective - Vital Signs/Intake and Output Vital Signs (last 24 hours): Temp Pulse Resp BP Pulse Ox 98.7 F 64 18 100/71 98 11/03/18 06:00 11/03/18 06:00 11/03/18 06:00 11/03/18 06:00 11/03/18 06:00 Intake and Output: 11/03/18 11/03/18 06:59 18:59 Intake Total 360 Output Total 250 Balance 110 - Medications Medications: Current Medications Acetaminophen (Tylenol 325mg Tab) 650 mg PO Q6 PRN PRN Reason: TEMP>=99.5F Last Admin: 11/01/18 12:25 Dose: 650 mg Acetaminophen (Tylenol 650 Mg Supp) 650 mg RC Q6H PRN PRN Reason: TEMP>=99.5F Acetylcysteine (Acetylcysteine 20%) 4 ml IH [id number] [facility] Last Admin: 11/03/18 13:18 Dose: 4 ml Atorvastatin Calcium (Lipitor) 40 mg PO DIN [facility] Last Admin: 11/02/18 16:52 Dose: 40 mg Ciprofloxacin (Ciloxan 0.3% Ophth Soln) 1 drop OU TID [facility] Last Admin: 11/03/18 09:24 Dose: 1 drop Donepezil HCl (Aricept) 10 mg PO HS [facility] Last Admin: 11/02/18 23:12 Dose: 10 mg Ergocalciferol (Drisdol 50,000 Intl Units Cap) 1 cap PO Q7D [facility] Last Admin: 11/01/18 12:24 Dose: 1 cap Levetiracetam (Keppra 500mg Ivpb) 500 mg in 100 mls @ 400 mls/hr IVPB Q12 [facility] Last Admin: 11/03/18 09:23 Dose: 400 mls/hr Levalbuterol HCl (Xopenex) 0.63 mg IH [id number] [facility] Last Admin: 11/03/18 13:18 Dose: 0.63 mg Ondansetron HCl (Zofran Inj) 4 mg IVP Q4H PRN PRN Reason: Nausea/Vomiting Pantoprazole Sodium (Protonix Susp) 40 mg PO ACB [facility] Last Admin: 11/03/18 08:32 Dose: 40 mg Polyethylene Glycol (Miralax) 17 gm PO BID [facility] Last Admin: 11/03/18 09:22 Dose: 17 gm - Labs Labs: 10/30/18 06:45 11/01/18 07:30 PT 11.3 SECONDS (9.4-12.5) 10/20/18 19:18 INR 0.99 10/20/18 19:18 APTT 28.8 Seconds (25.1-36.5) 10/20/18 19:18 - Additional Findings Additional findings: - Constitutional Appears: Non-toxic, No Acute Distress - Head Exam Head Exam: ATRAUMATIC, NORMAL INSPECTION, NORMOCEPHALIC - Eye Exam Eye Exam: absent: EOMI, Normal appearance (Conjunctivitis of left eye noted with interval improvement) - ENT Exam ENT Exam: Mucous Membranes Moist - Neck Exam Neck Exam: absent: Full ROM (due to left sided neglect) - Respiratory Exam Respiratory Exam: Clear to Ausculation Bilateral, NORMAL BREATHING PATTERN - Cardiovascular Exam Cardiovascular Exam: REGULAR RHYTHM, +S1, +S2 - GI/Abdominal Exam GI & Abdominal Exam: Soft, Normal Bowel Sounds - Neurological Exam Neurological Exam: Awake Neuro motor strength exam: Left Upper Extremity: 5, Right Upper Extremity: 0, Left Lower Extremity: 4, Right Lower Extremity: 0 Additional comments: Left sided neglect and plegia present - Psychiatric Exam Psychiatric exam: Flat Affect - Skin Skin Exam: Normal Color, Warm Assessment and Plan - Assessment and Plan (Free Text) Assessment: 63 year old woman with a past medical history significant for NIDDM2, HTN, HLD, and dementia who presented with hemorrhagic lesion in right parietal cortex without midline shift and continues to have unchanged neurological exam. Plan: -Repeat MRI Brain showed hematoma of unchanged size in the right posterior frontal lobe measuring approximately 3.0x3.6cm with a large area of surrounding vasogenic edema with blood products now evolved into the subacute phase -Continue Keppra 500mg IVPB Q12 -Continue Donepizil and Lipitor -Continue Ophthalmic Ciprofloxacin for conjunctivitis -Continue PT, OT and Speech Therapy now and when transferred to rehabilitation center Patient seen and case discussed with attending, Dr. Reyes. Will Casiano, PGY2
--- NOTE | 2018-11-03 21:13 | PN ---
DATE: 11/03/2018 SUBJECTIVE: The patient is in bed, in no acute distress, nontoxic. OBJECTIVE: VITAL SIGNS: On exam, temperature is 99, blood pressure is 120/80, respiratory rate of 18, heart rate of 76. HEENT: Unremarkable. NECK: Supple. LUNGS: Have decreased breath sounds. HEART: Normal S1, S2. ABDOMEN: Soft. LABORATORY EXAMINATION: Reveals a white count of 7.6, hemoglobin 11, BUN of 27, creatinine of 0.6. The blood cultures are negative. Review of orders reveals the patient to be off of antibiotics. ASSESSMENT AND PLAN: This is a 63-year-old female, probably secondary to right-sided cerebral hematoma. No evidence of infection or sepsis. Off of antibiotics. The patient is at risk for developing nosocomial infections. Earle Boudreaux MD
[2018-11-03 22:50] VITALS: RESP 20
[2018-11-04] MEDS: Acetylcysteine 20% Inhal Soln (4ml) IH SCH ×2 (07:55→13:17)
[2018-11-04] MEDS: Levalbuterol 0.63 MG/3 ML Inhal Soln UD IH SCH ×2 (07:55→13:17)
[2018-11-04 08:50] VITALS: BP 114/78; PULSE 95; TEMP 985; O2SAT 99
[2018-11-04] MEDS: POLYETHYLENE GLYCOL 3350 17 GM/Dose PACKET PO SCH (10:07)
[2018-11-04] MEDS: Ciprofloxacin 0.3% OPTH SOLN OU SCH ×2 (10:07→13:47)
[2018-11-04] MEDS: levETIRAcetam 500mg IVPB 500 MG/100 ML BAG IVPB SCH (10:07)
[2018-11-04] MEDS: Pantoprazole 40 mg Susp UD PO SCH (10:11)
[2018-11-04] MEDS: Insulin Reg-LOW-Coverage SC SCH ×2 (11:23→12:56)
--- NOTE | 2018-11-04 13:24 | CP.PCM.PN ---
Subjective - Date & Time of Evaluation Date of Evaluation: 11/04/18 Time of Evaluation: 09:15 - Subjective Subjective: No fevers, comfortable. Objective - Vital Signs/Intake and Output Vital Signs (last 24 hours): Temp Pulse Resp BP Pulse Ox 985 F H 95 H 20 114/78 99 11/04/18 06:00 11/04/18 06:00 11/04/18 06:00 11/04/18 06:00 11/04/18 06:00 Intake and Output: 11/04/18 11/04/18 06:59 18:59 Intake Total 240 Output Total 200 Balance 40 - Medications Medications: Current Medications Acetaminophen (Tylenol 325mg Tab) 650 mg PO Q6 PRN PRN Reason: TEMP>=99.5F Last Admin: 11/01/18 12:25 Dose: 650 mg Acetaminophen (Tylenol 650 Mg Supp) 650 mg RC Q6H PRN PRN Reason: TEMP>=99.5F Acetylcysteine (Acetylcysteine 20%) 4 ml IH [id number] [facility] Last Admin: 11/04/18 13:17 Dose: 4 ml Atorvastatin Calcium (Lipitor) 40 mg PO DIN [facility] Last Admin: 11/03/18 17:55 Dose: 40 mg Ciprofloxacin (Ciloxan 0.3% Ophth Soln) 1 drop OU TID [facility] Last Admin: 11/04/18 10:07 Dose: 1 drop Donepezil HCl (Aricept) 10 mg PO HS [facility] Last Admin: 11/03/18 21:19 Dose: 10 mg Ergocalciferol (Drisdol 50,000 Intl Units Cap) 1 cap PO Q7D [facility] Last Admin: 11/01/18 12:24 Dose: 1 cap Levetiracetam (Keppra 500mg Ivpb) 500 mg in 100 mls @ 400 mls/hr IVPB Q12 [facility] Last Admin: 11/04/18 10:07 Dose: 400 mls/hr Insulin Human Regular (Humulin R Low) 0 units SC ACHS [facility]; Protocol Last Admin: 11/04/18 12:56 Dose: 3 unit Levalbuterol HCl (Xopenex) 0.63 mg IH [id number] [facility] Last Admin: 11/04/18 13:17 Dose: 0.63 mg Ondansetron HCl (Zofran Inj) 4 mg IVP Q4H PRN PRN Reason: Nausea/Vomiting Pantoprazole Sodium (Protonix Susp) 40 mg PO ACB [facility] Last Admin: 11/04/18 10:11 Dose: 40 mg Polyethylene Glycol (Miralax) 17 gm PO BID [facility] Last Admin: 11/04/18 10:07 Dose: 17 gm - Labs Labs: 10/30/18 06:45 11/01/18 07:30 PT 11.3 SECONDS (9.4-12.5) 10/20/18 19:18 INR 0.99 10/20/18 19:18 APTT 28.8 Seconds (25.1-36.5) 10/20/18 19:18 - Constitutional Appears: Chronically Ill - Head Exam Head Exam: NORMAL INSPECTION - Respiratory Exam Respiratory Exam: Decreased Breath Sounds - Cardiovascular Exam Cardiovascular Exam: +S1, +S2 - GI/Abdominal Exam GI & Abdominal Exam: Soft. absent: Tenderness Assessment and Plan - Assessment and Plan (Free Text) Plan: Assessment low grade fever, probably due to right sided cerebral hematoma - no evidence of sepsis or bacterial infection HTN DM dyslipidemia Plan will continue to monitor off antibiotics since she is at risk for hospital- acquired infections follow up further plans of Neurology
[2018-11-04] MEDS ORDERED: Insulin Lispro (humaLOG) MEDIUM Coverage SC SCH (16:30)
--- NOTE | 2018-11-04 21:14 | CP.PCM.PN ---
<Moshe Chase - Last Filed: 11/04/18 21:14> Subjective - Date & Time of Evaluation Date of Evaluation: 11/04/18 Time of Evaluation: 07:00 - Subjective Subjective: Patient seen and examined at bedside in no acute distress. Not much change in patient's status. - Constitutional Appears: Non-toxic, No Acute Distress - Head Exam Head Exam: ATRAUMATIC, NORMAL INSPECTION, NORMOCEPHALIC - Eye Exam Eye Exam: absent: EOMI, Normal appearance (Conjunctivitis of left eye noted with interval improvement) - ENT Exam ENT Exam: Mucous Membranes Moist - Neck Exam Neck Exam: absent: Full ROM (due to left sided neglect) - Respiratory Exam Respiratory Exam: Clear to Ausculation Bilateral, NORMAL BREATHING PATTERN - Cardiovascular Exam Cardiovascular Exam: REGULAR RHYTHM, +S1, +S2 - GI/Abdominal Exam GI & Abdominal Exam: Soft, Normal Bowel Sounds - Neurological Exam Neurological Exam: Awake Neuro motor strength exam: Left Upper Extremity: 5, Right Upper Extremity: 0, Left Lower Extremity: 4, Right Lower Extremity: 0 Additional comments: Left sided neglect and plegia present - Psychiatric Exam Psychiatric exam: Flat Affect - Skin Skin Exam: Normal Color, Warm Objective - Vital Signs/Intake and Output Vital Signs (last 24 hours): Temp Pulse Resp BP Pulse Ox 985 F H 95 H 20 114/78 99 11/04/18 06:00 11/04/18 06:00 11/04/18 06:00 11/04/18 06:00 11/04/18 06:00 - Labs Labs: 10/30/18 06:45 11/01/18 07:30 PT 11.3 SECONDS (9.4-12.5) 10/20/18 19:18 INR 0.99 10/20/18 19:18 APTT 28.8 Seconds (25.1-36.5) 10/20/18 19:18 Assessment and Plan - Assessment and Plan (Free Text) Assessment: 63 year old woman with a past medical history significant for NIDDM2, HTN, HLD, and dementia who presented with hemorrhagic lesion in right parietal cortex without midline shift and continues to have unchanged neurological exam. Plan: -Repeat MRI Brain showed hematoma of unchanged size in the right posterior frontal lobe measuring approximately 3.0x3.6cm with a large area of surrounding vasogenic edema with blood products now evolved into the subacute phase -Continue Keppra 500mg IVPB Q12 -Continue Donepizil and Lipitor -Recommend switching from cipro eyedrops to erythromycin if conjunctivitis isn't clearing up -Continue PT, OT and Speech Therapy now and when transferred to rehabilitation center -Repeat CT head either in hospital or if discharged her facility to monitor status of hematoma Patient seen and case discussed with attending, Dr. Reyes. <Nathan Reyes - Last Filed: 11/06/18 18:31> Objective - Vital Signs/Intake and Output Vital Signs (last 24 hours): Temp Pulse Resp BP Pulse Ox 985 F H 95 H 20 114/78 99 11/04/18 06:00 11/04/18 06:00 11/04/18 06:00 11/04/18 06:00 11/04/18 06:00 - Labs Labs: 10/30/18 06:45 11/01/18 07:30 PT 11.3 SECONDS (9.4-12.5) 10/20/18 19:18 INR 0.99 10/20/18 19:18 APTT 28.8 Seconds (25.1-36.5) 10/20/18 19:18 Assessment and Plan - Assessment and Plan (Free Text) Assessment: I examined the patient independently and agree with the assessment and plan. Dr. Reyes
--- NOTE | 2018-11-04 21:31 | DS ---
HISTORY OF PRESENT ILLNESS: The patient was admitted by the hospitalist service. The patient is seen in room 560, bed 1. The patient is seen lying in the bed. The patient is awake, responsive. Does not appear to be in any distress. Overnight nurse's notes were reviewed. The patient was found to be lethargic, but responsive. The patient had significant left-sided weakness and left hemiparesis. PHYSICAL EXAMINATION: VITAL SIGNS: T-max 98.7, 98.5, heart rate 71, 76, 95, blood pressure 114/78, respiration 20, O2 sat 99%. HEENT: Head is normocephalic, atraumatic. HEENT examination shows pinkish pale conjunctivae. Anicteric sclerae. No oropharyngeal lesion. NECK: No neck rigidity. CHEST: Kyphosis. LUNGS: Shows no audible crackle, rales or wheezing. CARDIOVASCULAR: S1, S2, regular rhythm. Questionable soft systolic murmur at the left sternal border, right second intercostal space, left second intercostal space. ABDOMEN: Soft. Positive bowel sound. No palpable hepatosplenomegaly. GENITALIA: Female. RECTAL: Deferred. EXTREMITIES: Shows no pitting edema. No calf tenderness. No Andrews's signs. Positive left hemiplegia and hemiparesis noted. MUSCULOSKELETAL: Shows a body mass index of 24. Gait examination is not tested. VASCULAR: Palpable pulses. LABORATORY DATA: Fingerstick blood sugar 361, 134, 108, 229, 131, 156. Microbiology results are negative. FINAL IMPRESSION, PLAN AND DISCHARGE DIAGNOSES: 1. Right frontoparietal parenchymal intracerebral bleed with surrounding vasogenic edema with trace subdural hemorrhage along the right adjacent interhemispheric falx with mass effect on the midline without shift. 2. Cerebral cortical atrophy of the brain. 3. Gait dysfunction. 4. Deconditioning. 5. Left hemiplegia. 6. Right posterior frontal and intraparenchymal and intracerebral bleed. 7. Large right posterior frontoparietal deep white matter., intracerebral and intraparenchymal hemorrhage and hemorrhagic infarct with edema and mass effect with overlying sulci effacement and inferior and medial compressive effect on the superior margin of the right lateral ventricle with small subarachnoid hemorrhage. 8. Minimal chronic periventricular white matter ischemic changes of the brain with generalized cerebral cortical volume loss and cerebral cortical atrophy. 9. Status post bilateral cataract surgery. 10. Small right subpleural infiltrate. 11. Left hemiplegia and left hemiparesis. 12. Right posterior frontal lobe intraparenchymal and intracerebral bleed and hemorrhagic infarct with surrounding vasogenic edema and evolution into the subacute phase. 13. Mild mass effect with effacement of sulci. 14. Hypertensive cardiovascular disease with left ventricular ejection fraction of 69%. 15. Trace tricuspid regurgitation. 16. Trace pulmonic regurgitation. 17. Sinus bradycardia. 18. Questionable coronary ischemic changes. 19. Moderate cognitive language deficit with moderate receptive expressive language deficit. PLAN: At this time, the patient is medically cleared for discharge. The patient may be discharged to rehab after cleared by Neurology. Discharge medications as per as per updated MAR and as per updated medications including Mucomyst and Xopenex nebulizer every 6 hours, Aricept 10 mg at bedtime, ciprofloxacin eyedrops 1 drop three times a day, Colace 100 mg three times a day, Drisdol 50,000 units weekly, Keppra 500 mg twice a day, Lipitor 40 mg daily, MiraLax 17 g twice a day, Protonix 40 mg daily, Zofran 4 mg IV every 4 p.r.n., Tylenol p.o. and suppository p.r.n. The patient has been cleared for discharge to rehab. The patient's spouse has been explained about the patient's condition, diagnosis, overall guarded to poor prognosis on multiple occasions, which he acknowledged and understands. Time spent is 45 minutes. Dictated and electronically signed, not read. Krzysztof Koehler MD
== END 2018-11-04 16:42 | DRG 533 ==
LOC: ED 18:29 → ERH 20:34 → CCU 22:49 → 2RSO 10-27 01:04 → 2RNO 10-27 09:25 → 5RNO 10-30 17:18
PROVIDERS: ADMIT Internal Medicine; ATTEND Internal Medicine
DX: I61.1 Nontraumatic intracerebral hemorrhage in hemisphere, cortical (principal); J18.9 Pneumonia, unspecified organism; E11.65 Type 2 diabetes mellitus with hyperglycemia; E87.6 Hypokalemia; I37.1 Nonrheumatic pulmonary valve insufficiency; I07.1 Rheumatic tricuspid insufficiency; F03.90 Unspecified dementia, unspecified severity, without behavioral disturbance, psychotic disturbance, mood disturbance, and anxiety; I60.9 Nontraumatic subarachnoid hemorrhage, unspecified; I62.00 Nontraumatic subdural hemorrhage, unspecified; G81.94 Hemiplegia, unspecified affecting left nondominant side; G93.6 Cerebral edema; R13.12 Dysphagia, oropharyngeal phase; R29.714 NIHSS score 14; I11.9 Hypertensive heart disease without heart failure; R41.4 Neurologic neglect syndrome; E83.41 Hypermagnesemia; H10.9 Unspecified conjunctivitis; K59.00 Constipation, unspecified; R63.3 Feeding difficulties; E78.5 Hyperlipidemia, unspecified; E78.00 Pure hypercholesterolemia, unspecified; E55.9 Vitamin D deficiency, unspecified; R00.1 Bradycardia, unspecified; F32.9 Major depressive disorder, single episode, unspecified; F41.9 Anxiety disorder, unspecified; Z74.01 Bed confinement status; Z98.42 Cataract extraction status, left eye; Z98.41 Cataract extraction status, right eye

== ENCOUNTER 2018-11-29 11:49 | Emergency (ER) | payer OTHER ==
[2018-11-29 12:01] VITALS: BMI 21.4
--- NOTE | 2018-11-29 12:06 | ED PDOC ---
Arrival/HPI - General Chief Complaint: Medical Clearance Time Seen by Provider: 11/29/18 11:51 Historian: Patient, Other (rehab center) EM Caveat: Other (clinical condition) - History of Present Illness Narrative History of Present Illness (Text): 11/29/18 12:05 63 year old female, whose past medical history includes hypertension, dementia, diabetes, and CVA with left sided weakness and speech difficulty, presents to the emergency department sent from rehab center for reevaluation the extent of her intra-cranial hemorrhage. Patient had a fall and a stoke last month, she was sent to a rehab center for her intracranial hemorrhage and resulting stroke. Patient is known to have bilateral DVTs and will require AC vs IVC filter. Denies pain, fever, vomiting, dyspnea, chest pain. Time/Duration: < month Symptom Onset: Gradual Symptom Course: Unchanged Activities at Onset: Light Context: Home Past Medical History - Provider Review Nursing Documentation Reviewed: Yes - Infectious Disease Hx of Infectious Diseases: None - Reproductive Menopause: Yes - Cardiac Hx Hypertension: Yes - Pulmonary Hx Respiratory Disorders: No - Neurological Hx Dementia: Yes - HEENT Hx HEENT Disorder: No - Renal Hx Renal Disorder: No - Endocrine/Metabolic Hx Diabetes Mellitus Type 2: Yes - Hematological/Oncological Hx Blood Disorders: No - Integumentary Hx Dermatological Disorder: No - Musculoskeletal/Rheumatological Hx Musculoskeletal Disorders: No - Gastrointestinal Hx Gastrointestinal Disorders: No - Genitourinary/Gynecological Hx Genitourinary Disorders: No - Psychiatric Hx Psychophysiologic Disorder: No Hx Substance Use: No - Anesthesia Hx Anesthesia Reactions: No Family/Social History - Physician Review Nursing Documentation Reviewed: Yes Family/Social History: No Known Family HX Smoking Status: Never Smoked Hx Alcohol Use: No Hx Substance Use: No Allergies/Home Meds Allergies/Adverse Reactions: Allergies No Known Allergies Allergy (Verified 10/20/18 18:58) Review of Systems - Physician Review All systems were reviewed & negative as marked: Yes - Review of Systems Constitutional: absent: Fevers Respiratory: absent: SOB Cardiovascular: absent: Chest Pain Physical Exam - Physical Exam Narrative Physical Exam (Text): 11/29/18 12:04 Constitutional: No acute distress. Head: Normocephalic. ENT: Moist mucous membranes. Neck: Supple. Cardiovascular: Regular rate. Chest: No tenderness. Respiratory: Clear to auscultation bilaterally. GI: Soft. Nontender. Nondistended. Back: No CVA tenderness. Musculoskeletal: Left leg more swollen compared to the right. Skin: No rash. Neurologic: Alert. Vital Signs Reviewed: Yes Vital Signs Temp Pulse Resp BP Pulse Ox 11/29/18 11:50 98.1 F 64 18 114/54 L 96 Temperature: Afebrile Blood Pressure: Hypertensive Pulse: Regular Respiratory Rate: Normal Appearance: Positive for: Well-Appearing, Non-Toxic, Comfortable Pain Distress: None Mental Status: Positive for: Alert and Oriented X 3 Medical Decision Making ED Course and Treatment: 11/29/18 12:04 Impression: 63 year old female who presents to the emergency department for reevaluation of intra-cranial hemorrhage. Plan: -- Head CT w/o contrast -- Labs -- Reassess and disposition Prior Visits: Notes and results from previous visits were reviewed. Progress Notes: 11/29/18 13:36 IMPRESSION: Resolved right frontal parenchymal and subarachnoid hemorrhage. There is residual encephalomalacia 1 punctate focus of high attenuation in the right frontal cortex may represent calcification or focal acute blood. Questionable significance. No evidence of acute infarct atrophy and chronic white matter ischemic change. Dr. Reyes informed of results, states focal high attenuation focus is old and recommends discharge back to [facility] rehab. - Lab Interpretations I have reviewed the lab results: Yes - RAD Interpretation Radiology Orders: 11/29/18 11:55 HEAD W/O CONTRAST [CT] Stat - Scribe Statement The provider has reviewed the documentation as recorded by the Scribe Antonia Mederos Provider Scribe Attestation: All medical record entries made by the Scribe were at my direction and personally dictated by me. I have reviewed the chart and agree that the record accurately reflects my personal performance of the history, physical exam, medical decision making, and the department course for this patient. I have also personally directed, reviewed, and agree with the discharge instructions and disposition. Disposition/Present on Arrival - Present on Arrival Any Indicators Present on Arrival: No History of DVT/PE: No History of Uncontrolled Diabetes: No Urinary Catheter: No History of Decub. Ulcer: No History Surgical Site Infection Following: None - Disposition Have Diagnosis and Disposition been Completed?: Yes Diagnosis: DVT (deep venous thrombosis), Encephalomalacia Disposition: OTHER INSTITUTION Disposition Time: 13:38 Patient Plan: Discharge Patient Problems: Current Active Problems Problem Status Onset DVT (deep venous thrombosis) Acute Encephalomalacia Acute Condition: STABLE Discharge Instructions (ExitCare): Deep Vein Thrombosis (Blood Clots in the Legs) Forms: [facility] (Sudanese)
[2018-11-29 12:48] LABS: BASO # 0.03 K/mm3 (0.0-2.0); BASO % 0.5 % (0.0-3.0); EOS # 0.1 (0.0-0.7); EOS % 1.4 % (1.5-5.0); HEMOGLOBIN 11.8 g/dL (12.0-16.0); LYMPH # 1.9 (1.2-3.4); LYMPH % 30.1 % (22.0-35.0); MEAN CELL VOLUME 88.1 fl (80.0-105.0); MEAN CORPUSCULAR HEMOGLOBIN 28.1 pg (25.0-35.0); MEAN CORPUSCULAR HGB CONC 31.9 g/dl (31.0-37.0); MEAN PLATELET VOLUME 8.7 fl (7.0-11.0); MONO # 0.5 (0.1-0.6); MONO % 8.5 % (1.0-6.0); RBC 4.2 10^6/uL (3.5-6.1); RED CELL DISTRIBUTION WIDTH 12.9 % (11.5-14.5); WHITE BLOOD COUNT 6.3 10^3/uL (4.5-11.0)
[2018-11-29 12:56] LABS: INR 1.06; PARTIAL THROMBOPLASTIN TIME 35.3 Seconds (26.9-38.3)
[2018-11-29 12:59] LABS: ALB/GLOB RATIO 1.1 (1.1-1.8); ALBUMIN 3.6 g/dL (3.0-4.8); ALT/SGPT 44 U/L (7-56); AST/SGOT 27 U/L (14-36); BLOOD UREA NITROGEN 16 mg/dL (7-21); CALCIUM 9.2 mg/dL (8.4-10.5); GFR NON-AFRICAN AMERICAN > 60
--- NOTE | 2018-11-29 13:26 | CT ---
Date of service: 11/29/2018 PROCEDURE: CT HEAD WITHOUT CONTRAST. HISTORY: h/o ICH COMPARISON: 10/21/2018 TECHNIQUE: Axial computed tomography images were obtained through the head/brain without intravenous contrast. Radiation dose: Total exam DLP = 881.42 mGy-cm. This CT exam was performed using one or more of the following dose reduction techniques: Automated exposure control, adjustment of the mA and/or kV according to patient size, and/or use of iterative reconstruction technique. FINDINGS: HEMORRHAGE: No evidence of residual intracranial hemorrhage. Prior right high frontal parenchymal hemorrhage with subarachnoid hemorrhage has entirely resolved. There is 1 focal punctate area of high attenuation in the right frontal cortex on series 4, image 33. This may represent focal calcification or a tiny focus of residual blood in the frontal cortex. BRAIN: No mass effect or edema. There is right frontal encephalomalacia consistent recent parenchymal hemorrhage. There is no evidence of acute infarct. There is mild to moderate diffuse atrophy there is mild periventricular white matter lucency consistent with microvascular ischemic change. VENTRICLES: Unremarkable. No hydrocephalus. CALVARIUM: Unremarkable. PARANASAL SINUSES: Unremarkable as visualized. No significant inflammatory changes. MASTOID AIR CELLS: Unremarkable as visualized. No inflammatory changes. OTHER FINDINGS: None. IMPRESSION: Resolved right frontal parenchymal and subarachnoid hemorrhage. There is residual encephalomalacia 1 punctate focus of high attenuation in the right frontal cortex may represent calcification or focal acute blood. Questionable significance. No evidence of acute infarct atrophy and chronic white matter ischemic change.
[2018-11-29 14:20] VITALS: BP 140/84; PULSE 73; RESP 13; O2SAT 95
[2018-11-29 16:17] VITALS: TEMP 98
== END 2018-11-29 16:15 ==
LOC: ED 11:49
DX: G93.89 Other specified disorders of brain (principal); I82.409 Acute embolism and thrombosis of unspecified deep veins of unspecified lower extremity; E11.9 Type 2 diabetes mellitus without complications; F03.90 Unspecified dementia, unspecified severity, without behavioral disturbance, psychotic disturbance, mood disturbance, and anxiety; I69.354 Hemiplegia and hemiparesis following cerebral infarction affecting left non-dominant side